=== PATIENT | male | born 1985 | race Hispanic/Latino ===

== ENCOUNTER 2024-02-27 18:20 | Inpatient (IN) | payer SELFPAY ==
[2024-02-27] VITALS (25 sets, daily range): BP systolic 87–116; BP diastolic 41–70; PULSE 104–132; RESP 11–24; TEMP 36.1–36.4; O2SAT 97–100
--- NOTE | ~2024-02-27 | XR_ITS ---
EXAM: XR hand RT min 3V DATE: 02/27/2024 21:05 HISTORY: right hand pain, fall . COMPARISON: None available. FINDINGS: Normal mineralization. Transverse extra-articular nondisplaced fracture of the proximal ri ght first metacarpal. Old second proximal phalange fracture, healed in mild deformity No lytic or efe stic lesion. Joint spaces are maintained. No erosion or periosteal change. Soft tissues within normal limits. IMPRESSION: Transverse intra-articular nondisplaced fracture of the proximal right first metacarpal. Reviewed, dictated and finalized at location K. IMPRESSION: Transverse intra-articular nondisplaced fracture of the proximal ri t first metacarpal.
--- NOTE | ~2024-02-27 | CT_ITS ---
EXAMINATION: CT facial & cervical spine wo DATE: 02/27/2024 20:53 INDICATION: head injury TECHNIQUE: Computed tomography (CT) of the maxillofacial region and cervical spine was performed with out intravenous contrast. Automated exposure control and iterative reconstruction technique were empl oyed. The dose-length product was 605.33 mGy-cm. COMPARISON: None FINDINGS: CERVICAL: Vertebral Body Alignment: Intact. Craniocervical and atlantoaxial alignment: No significant degenerative change. Alignment intact. Osseous structures/fracture: No evidence of a lytic or blastic process in the visualized spine. No e vidence of acute fracture. Cervical soft tissues: The paraspinal soft tissues planes are maintained. Degenerative changes: No significant degenerative changes. FACE: Soft Tissues: No significant superficial soft tissue swelling. Facial bones: No acute fracture. No lytic or blastic process. Eyes: The globes are intact. The soft tissue planes of the orbits are maintained. Paranasal Sinuses: Trace left mastoid fluid, the remaining aerated spaces are clear. Foreign Bodies: No radiopaque foreign bodies. Other Findings: None. IMPRESSION: No acute fracture or traumatic malalignment in the cervical spine. No acute facial bone fracture. Reviewed, dictated and finalized at location K. IMPRESSION: No acute fracture or traumatic malalignment in the cervical spine. No acute fac ial bone fracture.
--- NOTE | ~2024-02-27 | CT_ITS ---
EXAMINATION: CT brain wo con DATE: 02/27/2024 20:53 INDICATION: head injury . TECHNIQUE: Computed tomography (CT) of the head was performed without intravenous contrast. The mA wa s adjusted according to patient size. Iterative reconstruction technique was employed. The dose-lengt h product was 605.33 mGy-cm. COMPARISON: None. FINDINGS: No acute intracranial hemorrhage or extra-axial fluid collection. No hydrocephalus, mass, or herniation. No acute ischemic infarct. Unremarkable dural venous sinus attenuation. No acute osseous abnormality. The aerated spaces are clear. IMPRESSION: No acute intracranial process. Reviewed, dictated and finalized at location K.
--- NOTE | ~2024-02-27 | XR_ITS ---
EXAMINATION: XR chest 1V portable Exam Date/Time: 02/27/2024 19:03 CDT HISTORY: FEVER, LETHARGY, N/V/D Comparison: None. RESULT: Lines, tubes, and devices: None. Lungs and pleura: Clear. Cardiomediastinal silhouette: Unremarkable. Other: No acute osseous or upper abdominal finding. IMPRESSION: No acute cardiopulmonary process. Reviewed, dictated and finalized at location K.
--- NOTE | ~2024-02-27 | CT_ITS ---
EXAMINATION: CT abdomen pelvis w con DATE: 02/27/2024 21:03 INDICATION: abd pain, bloody diarrhea TECHNIQUE: Computed tomography (CT) of the abdomen and pelvis was performed with 100 mL Omnipaque-350 intravenous contrast. Automated exposure control and iterative reconstruction technique were employe d. The dose-length product was 1062.80 mGy-cm. COMPARISON: None. FINDINGS: Beam hardening present from arm down positioning. Lower thorax: Mild coronary artery calcification. Dependent atelectasis. Mild symmetric gynecomastia. Liver: Enlarged. Biliary/Gallbladder: Gallbladder is collapsed. No bile duct dilation. Pancreas: No mass or duct dilation. Spleen: Enlarged. Adrenals:No mass. Kidneys: No suspicious mass, obstructing stone, or hydronephrosis. GI tract: No small or large bowel dilation. Segmental wall thickening at the junction of the distal d escending colon and proximal sigmoid. Normal appendix. Diverticulosis without diverticulitis. Mesentery/Peritoneum: No ascites, mass, or free air. Enlarged jessica hepatic lymph node. Retroperitoneum: No mass. Atherosclerotic abdominal aortic and/or arterial calcifications. Pelvis: Bladder wall thickening in a partially distended urinary bladder. Normal prostate. Soft Tissues: Soft tissues and body wall unremarkable. Bones: No acute osseous finding. IMPRESSION: Hepatosplenomegaly. Portohepatic lymphadenopathy. Segmental distal descending/proximal sigmoid colon wall thickening may reflect a component of colitis . Bladder wall thickening from incomplete distention versus cystitis, correlate with urinalysis Reviewed, dictated and finalized at [facility] K. IMPRESSION: Hepatosplenomegaly. Portohepatic lymphadenopathy. Segmental distal descending/proximal sigmoid colon wall thickening may reflect a component of colitis. Bladder wall thickening from incomplete distention versus cystitis, correlate w ith urinalysis
--- NOTE | 2024-02-27 18:34 | ECG_ITS ---
SEE SCANNED COPY FOR CONFIRMED REPORT MTDD
[2024-02-27 18:46] LABS: Hematocrit 26.7 % (42.0-52.0); Hemoglobin 7.2 g/dL (14.0-18.0); Mean Corpuscular Volume 70.4 fl (80-100); Platelet Count Result 197 k/mm3 (150-375); Red Blood Count 3.79 M/mm3 (4.6-6.20); Red Cell Distribution Width 20.1 % (11.5-14.5); White Blood Count 33.3 K/mm3 (4.5-10.0)
[2024-02-27 18:55] LABS: INR 1.4; Prothrombin Time 17.5 Seconds (11.1-14.7)
[2024-02-27 18:56] LABS: Partial Thromboplastin Time 31.2 Seconds (22.3-36.8)
[2024-02-27 18:58] LABS: Alanine Aminotransferase 26 U/L (6-50); Alkaline Phosphatase 83 U/L (38-126); Anion Gap 13 mmol/L (4-12); Aspartate Amino Transferase 58 U/L (17-59); Bilirubin,Total 1.3 mg/dL (0.2-1.3); Blood Urea Nitrogen 39 mg/dL (9-20); Carbon Dioxide 23 mmol/L (22-30); Chloride 103 mmol/L (98-107); Estimated CRCL calculation 94 ml/min; Estimated Glomerular Filt Rate > 60; Glucose 200 mg/dL (65-110); Lipase 100 U/L (23-300); Potassium 3.8 mmol/L (3.4-5.0); Sodium 139 mmol/L (137-145)
[2024-02-27 19:16] LABS: Troponin I 0.045 ng/mL (0.000-0.034)
--- NOTE | 2024-02-27 19:26 | ED.NAVMDI ---
HPI - Nausea/Vomiting/Diarrhea General Chief complaint: Nausea/Vomiting/Diarrhea <LINDA Chua Last Filed: 02/28/24 03:26> Stated complaint: Nausea, vomiting <LINDA Chua Last Filed: 02/28/24 03:26> Time Seen by Provider: 02/27/24 19:12 <LINDA Chua Last Filed: 02/28/24 03:26> Source: patient and family <LINDA Chua Last Filed: 02/28/24 03:26> Mode of arrival: wheelchair <LINDA Chua Filed: 02/28/24 03:26> Limitations: no limitations <LINAD Chua Last Filed: 02/28/24 03:26> History of Present Illness HPI Narrative: This is a 38 year old male that presents to the ER for abdominal pain. Ongoing since yesterday. Reports associated vomiting and bloody diarrhea. Reports when he was coming here he stood up and got really dizzy and fell and hit his head. He did not lose consciousness. Reports injuries to his face. Denies vision changes, numbness or weakness. <LINDA Chua Last Filed: 02/28/24 03:26> Related Data Home medications: Home Medications Medication Instructions Recorded Confirmed No Home Medications 02/28/24 02/28/24 <LINDA Chua Last Filed: 02/28/24 03:26> Allergies/Adverse reactions: Allergies Allergy/AdvReac Type Severity Reaction Status Date / Time No Known Allergies Allergy Verified 02/27/24 18:22 <LINDA Chua Last Filed: 02/28/24 03:26> Review of Systems Review of Systems: CONSTITUTIONAL: Denies fever EYES: Denies visual changes CARDIOVASCULAR: Denies chest pain RESPIRATORY: Reports cough. Denies dyspnea. GASTROINTESTINAL: Reports abdominal pain, nausea, vomiting, and diarrhea. MUSCULOSKELETAL: Reports myalgia. NEUROLOGIC: Reports headache. Denies numbness, or weakness. <LINDA Chua Last Filed: 02/28/24 03:26> All systems reviewed & are unremarkable except as noted in HPI and below <Gi Ramires PA-C - Last Filed: 02/28/24 03:26> FORMERLY [facility] Past Medical History Medical History: Medical History (Updated 02/28/24 @ 16:20 by Cheo Sebastian APRN) Acute blood loss anemia Hematemesis Melena No active medical problems Syncope <Gi Ramires PA-C - Last Filed: 02/28/24 03:26> Social History Social History: Social History (Updated 02/27/24 @ 19:31 by Gi Ramires PA-C) Smoking packs per day: 0.5 Smoking cigarettes per day: 10.0 Years smoked: 25 Smoking pack-years: 12.50 Smoking status: Current every day smoker Tobacco type: cigarettes Alcohol intake: current Drinks per week: 42 Substance use: never Do You Feel Safe in your Home?: Yes Lack of Transportation: No Lack of Food: Never True Current Housing: I Have Housing Concerned About Future Housing: No Difficulty Paying Gas/Electric Bills: No Difficulty Paying for Meds: No Currently Unemployed: No Education: Associate Degree Difficulty w/ Childcare or Family Care: No Spiritual care concerns: No <Gi Ramires PA-C - Last Filed: 02/28/24 03:26> Exam Narrative: GENERAL: Ill-appearing, well-nourished, and in no acute distress. HEAD: Normocephalic. Superficial lacerations of the inner lower lip EYES: PERRLA and EOMI. ENT: Nares clear, no rhinorrhea or epistaxis. Mucous membranes moist. Oropharynx without tonsillar hypertrophy exudate or other lesions. Bilateral TMs pearly cardenas non-bulging NECK: Supple. No adenopathy or masses. CHEST: Clear to auscultation. No respiratory distress. No wheezes rales or rhonchi HEART: Regular rate and rhythm. No murmur heard. Normal peripheral pulses. ABDOMEN: Soft, nondistended, normal active bowel sounds. EXTREMITIES: Normal range of motion. No edema. SKIN: Warm, dry, no rash. NEURO: No focal deficits. Alert and oriented x3. CN II-XII grossly intact PSYCH: Normal mood and affect RECTAL: Hemoccult-positive <Gi Ramires PA-C - Last Filed: 02/28/24 03:26>
[2024-02-27 19:35] LABS: Anisocytosis 1+; Band Neutrophils Percent 1 % (0-6); Hypochromasia 3+; Lymphocytes Absolute Manual 6.32 K/mm3 (1.1-4.5); Monocytes Absolute Manual 1.33 K/mm3 (0.1-0.90); Monocytes Percent Manual 4 % (3-9); Neutrophils Absolute Manual 25.64 K/mm3 (1.3-6.7); Neutrophils Percent Manual 76 % (46-73); Platelet Estimate Adequate (Adequate); Schistocytes Rare; Total Cells Counted 100
[2024-02-27] MEDS: ONDANSETRON INJ 4 MG/2 ML VIAL IV PUSH (19:35)
[2024-02-27] MEDS: PANTOPRAZOLE SODIUM IV 40 MG VIAL IV PUSH (19:35)
[2024-02-27] MEDS: SODIUM CHLORIDE 0.9% IV 1,000 ML 999 ML IV CONT ×2 (19:35→20:04)
[2024-02-27 19:36] LABS: CRP 1.5 mg/dL (<1.0)
[2024-02-27] MEDS: TETANUS,DIPHTHERIA,AC PERTUSSIS ADULT (0.5 ML) BOOSTRIX IM (19:40)
[2024-02-27] MEDS: IBUPROFEN IV 400 MG in SODIUM CHLORIDE 0.9% IV 100 ML 208 MG IVPB (19:42)
[2024-02-27 19:45] LABS: Ethanol < 10 mg/dL (<10)
[2024-02-27 20:12] LABS: Influenza A QL RT-PCR Negative (Negative); Influenza B QL RT-PCR Negative (Negative); RSV RNA, RT-PCR Negative (Negative); SARS-CoV-2 RNA PCR Negative (Negative)
[2024-02-27 20:14] LABS: Hemoglobin A1C 5.2 % (<5.7)
[2024-02-27 22:03] LABS: Hematocrit 21.2 % (42.0-52.0)
[2024-02-27 22:27] LABS: Troponin I 0.071 ng/mL (0.000-0.034)
[2024-02-27 22:33] LABS: Reflex Lactic Acid Yes or No Add Lactic
[2024-02-27] MEDS: PIPERACILLN/TAZ 3.375GM/NS50ML 3.375 GM/50 ML BAG IVPB (22:49)
[2024-02-27 23:07] LABS: Lactic Acid 3.2 mmol/L (0.7-2.0)
--- NOTE | 2024-02-27 23:16 | ECG_ITS ---
SEE SCANNED COPY FOR CONFIRMED REPORT MTDD
[2024-02-27] MEDS: TUBING, BLOOD PLUM PUMP TUBING 1 EACH XX (23:26)
[2024-02-27] MEDS: SODIUM CHLORIDE 0.9% IV 250 ML 30 ML IV CONT (23:26)
[2024-02-28] VITALS (30 sets, daily range): BP systolic 87–127; BP diastolic 46–75; PULSE 99–129; RESP 14–31; TEMP 35.6–36.9; O2SAT 97–100; BMI 32.3
[2024-02-28 00:02] LABS: Appearance Urine Cloudy (Clear); Bacteria Urine None Seen /hpf; Bilirubin Urine Negative (Negative); Blood Urine Negative (Negative); Color Urine Yellow (Yellow); Glucose Urine UA Negative (Negative); Hyaline Casts Urine Present /lpf; Ketones Urine Negative (Negative); Leukocyte Esterase Ur Negative LEU/UL (Negative); Need Manual Microscopic Reviewed; Nitrate Urine Negative (Negative); Non Pathogenic Casts >20; Protein Urine Trace mg/dL (Negative); RBC Urine 0-2 /hpf (0-2); Squamous Epithelial Cell Urine None Seen /hpf (Few); Urobilinogen Urine 0.2 mg/dL (<2.0); WBC Urine 0-5 /hpf (0-3); pH Urine 5.5 (5.0-9.0)
[2024-02-28 00:04] LABS: Add Urine Microscopic? YES
[2024-02-28] MEDS: SODIUM CHLORIDE 0.9% IV 1,000 ML 999 ML IV CONT (00:50)
--- NOTE | 2024-02-28 01:09 | ECG_ITS ---
SEE SCANNED COPY FOR CONFIRMED REPORT MTDD
[2024-02-28 02:00] LABS: Troponin I 0.089 ng/mL (0.000-0.034)
--- NOTE | 2024-02-28 02:41 | PM.IMHP ---
H&P: HPI History of Present Illness Date/Time: 02/28/24 02:41 Chief Complaint: HEMATEMESIS Narrative: THIS IS A 38-YEAR-OLD MALE WITH NO SIGNIFICANT PAST MEDICAL HISTORY PRESENTS TO THE EMERGENCY ROOM AFTER HAVING SEVERAL EPISODES OF HEMATEMESIS AND MELENA FEELING LIGHTHEADED, PATIENT DRINKS 6 PACK OF BEER DAILY. HAS BEEN HIS USUAL STATE OF HEALTH UP UNTIL THIS POINT. IN EMERGENCY ROOM HE WAS FOUND TO HAVE A HEMOGLOBIN OF 6. EXAMINATION: CT facial & cervical spine wo DATE: 02/27/2024 20:53 INDICATION: head injury TECHNIQUE: Computed tomography (CT) of the maxillofacial region and cervical spine was performed without intravenous contrast. Automated exposure control and iterative reconstruction technique were employed. The dose-length product was 605.33 mGy-cm. COMPARISON: None FINDINGS: CERVICAL: Vertebral Body Alignment: Intact. Craniocervical and atlantoaxial alignment: No significant degenerative change. Alignment intact. Osseous structures/fracture: No evidence of a lytic or blastic process in the visualized spine.? No evidence of acute fracture. Cervical soft tissues: The paraspinal soft tissues planes are maintained. Degenerative changes: No significant degenerative changes. FACE: Soft Tissues:? No significant superficial soft tissue swelling. Facial bones:? No acute fracture. No lytic or blastic process. Eyes:? The globes are intact.? The soft tissue planes of the orbits are maintained. Paranasal Sinuses:? Trace left mastoid fluid, the remaining aerated spaces are clear. Foreign Bodies:? No radiopaque foreign bodies. Other Findings: None. IMPRESSION:? No acute fracture or traumatic malalignment in the cervical spine. No acute facial bone fracture.? EXAMINATION: CT brain wo con DATE: 02/27/2024 20:53 INDICATION: head injury . TECHNIQUE: Computed tomography (CT) of the head was performed without intravenous contrast. The mA was adjusted according to patient size. Iterative reconstruction technique was employed. The dose-length product was 605.33 mGy-cm. COMPARISON: None. FINDINGS: No acute intracranial hemorrhage or extra-axial fluid collection. No hydrocephalus, mass, or herniation. No acute ischemic infarct. Unremarkable dural venous sinus attenuation. No acute osseous abnormality. The? aerated spaces are clear. IMPRESSION:? No acute intracranial process. EXAMINATION: CT abdomen pelvis w con DATE: 02/27/2024 21:03 INDICATION: abd pain, bloody diarrhea TECHNIQUE: Computed tomography (CT) of the abdomen and pelvis was performed with 100 mL Omnipaque-350 intravenous contrast. Automated exposure control and iterative reconstruction technique were employed. The dose-length product was 1062.80 mGy-cm. COMPARISON: None. FINDINGS: Beam hardening present from arm down positioning. Lower thorax: Mild coronary artery calcification. Dependent atelectasis. Mild symmetric gynecomastia. Liver: Enlarged.? Biliary/Gallbladder: Gallbladder is collapsed. No bile duct dilation. Pancreas: No mass or duct dilation. Spleen: Enlarged. Adrenals:No mass. Kidneys: No suspicious mass, obstructing stone, or hydronephrosis. GI tract: No small or large bowel dilation. Segmental wall thickening at the junction of the distal descending colon and proximal sigmoid. Normal appendix. Diverticulosis without diverticulitis. Mesentery/Peritoneum: No ascites, mass, or free air. Enlarged jessica hepatic lymph node. Retroperitoneum: No mass. Atherosclerotic abdominal aortic and/or arterial calcifications. Pelvis: Bladder wall thickening in a partially distended urinary bladder. Normal prostate. Soft Tissues: Soft tissues and body wall unremarkable. Bones:? No acute osseous finding. IMPRESSION: Hepatosplenomegaly. Portohepatic lymphadenopathy. Segmental distal descending/proximal sigmoid colon wall thickening may reflect a component of colitis. Bladder wall thickening from incomplete distention versus cys
[2024-02-28] MEDS: OCTREOTIDE ACETATE 50 MCG/ML VIAL IV PUSH (03:14)
[2024-02-28] MEDS: SODIUM CHLORIDE 0.9% IV 1,000 ML 125 ML IV CONT (03:17)
[2024-02-28 03:25] LABS: Hematocrit 21.7 % (42.0-52.0)
[2024-02-28 03:27] LABS: Hemoglobin 6.5 g/dL (14.0-18.0)
[2024-02-28] MEDS: TUBING, BLOOD SET 1 EACH XX (04:22)
[2024-02-28] MEDS: SODIUM CHLORIDE 0.9% IV 250 ML 30 ML IV CONT ×2 (04:22→08:43)
--- NOTE | 2024-02-28 05:35 | ADMGEN ---
This patient, Jun De La Rosa, was admitted to IMU Room 204-01. Patient/family oriented to hospital policies and general routines including ID bracelet, bed and alarms, visiting hours, pain management, procedures, bathroom and other care routines, personal items, smoking policy, room service/diet, and visiting hours. Information on how to activate the Rapid Response Team has been discussed. Patient/Family are encouraged to report perceived risks to care and to ask questions if they do not understand what they are told or what they should do.
[2024-02-28 06:02] LABS: Glucose Point of Care 163 mg/dl (65-105)
[2024-02-28] MEDS: DEXTROSE 5%/0.45% SOD CHL 1,000 ML 125 ML IV CONT (06:17)
[2024-02-28] MEDS: chlordiazePOXIDE (*CRX) 25 MG CAPSULE 50 MG PO (06:19)
[2024-02-28] MEDS: PIPERACILLN/TAZ 3.375GM/NS50ML 3.375 GM/50 ML BAG IVPB ×2 (06:19→15:11)
[2024-02-28 07:00] LABS: Hematocrit 23.3 % (42.0-52.0); Hemoglobin 7.2 g/dL (14.0-18.0)
[2024-02-28] MEDS: TUBING, BLOOD PLUM PUMP TUBING 1 EACH XX (08:38)
[2024-02-28] MEDS: PANTOPRAZOLE SODIUM IV 80 MG in SODIUM CHLORIDE 0.9% IV 500 ML 50 MG IV CONT (08:40)
[2024-02-28] MEDS: PANTOPRAZOLE SODIUM IV 40 MG VIAL IV PUSH (08:42)
[2024-02-28] MEDS: LACTATED RINGERS 1,000 ML 150 ML IV CONT (10:41)
--- NOTE | 2024-02-28 11:02 | WPDANESEPPF ---
Anes - Initial Pre Proc Eval Procedure: Operation Date: 02/28/24 15:00 Proposed Procedures p Esophagogastroduodenoscopy - Gregory Caldwell MD Date/Time: 02/28/24 11:02 Surgeon: Cb Kwon MD Pre Op Diagnosis: Sepsis,Colitis,GI Bleed Patient Data Age: 38 Gender: M Height: 1.78 m Weight: 102.1 kg Last Vital Signs Temp 97 F L 02/28/24 10:37 Pulse 119 H 02/28/24 10:37 Resp 18 02/28/24 10:37 BP 103/60 02/28/24 10:37 Pulse Ox 100 02/28/24 10:37 O2 Del Method Room Air 02/28/24 10:37 Allergies Allergy/AdvReac Type Severity Reaction Status Date / Time No Known Allergies Allergy Verified 02/27/24 18:22 Home Medications Medication Instructions Recorded Confirmed Type No Home Medications 02/28/24 02/28/24 History Laboratory Tests 02/27/24 02/27/24 02/27/24 18:36 19:27 21:53 WBC 33.3 H K/mm3 (4.5-10.0) RBC 3.79 L M/mm3 (4.6-6.20) Hgb 7.2 L g/dL 6.0 L* g/dL (14.0-18.0) (14.0-18.0) Hct 26.7 L % 21.2 L % (42.0-52.0) (42.0-52.0) MCV 70.4 L fl (80-100) MCH 19.0 L pg (26-34) MCHC 27.0 L g/dl (32-36) RDW 20.1 H % (11.5-14.5) Plt Count 197 k/mm3 (150-375) MPV TNP Immature Gran % (Auto) Not Reportable Neut % (Auto) Not Reportable Lymph % (Auto) Not Reportable [place] % (Auto) Not Reportable Eos % (Auto) Not Reportable Baso % (Auto) Not Reportable Lymph # (Auto) Not Reportable [place] # (Auto) Not Reportable Eos # (Auto) Not Reportable Baso # (Auto) Not Reportable Abs Immat Gran (auto) Not Reportable Absolute Neuts (auto) Not Reportable Absolute Nucleated RBC Not Reportable Total Counted 100 Neutrophils % (Manual) 76 H % (46-73) Band Neutrophils % 1 % (0-6) Lymphocytes % (Manual) 19.0 % (18-44) Monocytes % (Manual) 4 % (3-9) Nucleated RBC % Not Reportable Abs Neuts (Manual) 25.64 H K/mm3 (1.3-6.7) Abs Lymphs (Manual) 6.32 H K/mm3 (1.1-4.5) Abs Monocytes (Manual) 1.33 H K/mm3 (0.1-0.90) Platelet Estimate Adequate (Adequate) % Immature Plt Fraction 16.0 H % (0.9-11.2) Hypochromasia 3+ Anisocytosis 1+ Schistocytes Rare PT 17.5 H Seconds (11.1-14.7) INR 1.4 APTT 31.2 Seconds (22.3-36.8) Sodium 139 mmol/L (137-145) Potassium 3.8 mmol/L (3.4-5.0) Chloride 103 mmol/L (98-107) Carbon Dioxide 23 mmol/L (22-30) Anion Gap 13 H mmol/L (4-12) BUN 39 H mg/dL (9-20) Creatinine 1.10 mg/dL (0.7-1.3) Estim Creat Clear Calc 94 ml/min Estimated GFR > 60 (59 - ) Glucose 200 H mg/dL (65-110) POC Capillary Glucose Hemoglobin A1c 5.2 % (<5.7) Lactic Acid 4.0 H mmol/L (0.7-2.0) Calcium 9.0 mg/dL (8.4-10.2) Total Bilirubin 1.3 mg/dL (0.2-1.3) AST 58 U/L (17-59) ALT 26 U/L (6-50) Alkaline Phosphatase 83 U/L (38-126) Troponin I 0.045 H* ng/mL 0.071 H* D ng/mL (0.000-0.034) (0.000-0.034) C-Reactive Protein 1.5 H mg/dL (<1.0) Total Protein 7.0 g/dL (6.3-8.2) Albumin 4.0 g/dL (3.5-5.1) Lipase 100 U/L (23-300) Urine Color Urine Appearance Urine pH Ur Specific [place] Urine Protein Urine Glucose (UA) Urine Ketones Ur Blood (Man) Urine Nitrate Urine Bilirubin Urine Urobilinogen Add Ur Microanalysis Leukocyte Esterase R
--- NOTE | 2024-02-28 11:26 | WPDGICN ---
Assessment and Plan Assessment and plan (1) Acute GI bleeding: Code(s): K92.2 - Gastrointestinal hemorrhage, unspecified Status: Acute Assessment and Plan: will proceed with urgent EGD on iv protonix/octreotide and antibiotics assess if varices, ulcer, etc more recommendations after egd (2) Melena: Code(s): K92.1 - Melena Status: Acute Assessment and Plan: received blood transfusion (3) Hematemesis: Code(s): K92.0 - Hematemesis Status: Acute (4) Syncope: Code(s): R55 - Syncope and collapse Status: Acute Assessment and Plan: from acute gib (5) Alcohol dependence: Code(s): F10.20 - Alcohol dependence, uncomplicated Status: Acute Assessment and Plan: [facility] protocol thiamine, librium (6) Sepsis: Qualifiers: Sepsis acute organ dysfunction status: without acute organ dysfunction Sepsis type: sepsis due to unspecified organism Qualified Code(s): A41.9 - Sepsis, unspecified organism Code(s): A41.9 - Sepsis, unspecified organism Status: Acute Assessment and Plan: on abx (7) Acute blood loss anemia: Code(s): D62 - Acute posthemorrhagic anemia Status: Acute Assessment and Plan: s/p blood transfusion keep hgb>7 (8) Fracture of first metacarpal bone of right hand: Qualifiers: Encounter type: initial encounter Fracture alignment: nondisplaced Fracture morphology: other fracture Fracture type: closed Metacarpal location: base Qualified Code(s): S62.234A - Other nondisplaced fracture of base of first metacarpal bone, right hand, initial encounter for closed fracture Code(s): S62.201A - Unspecified fracture of first metacarpal bone, right hand, initial encounter for closed fracture Status: Acute GI Consult Note Consult date/time: 02/28/24 11:26 Reason for consult: hematemesis, melena, syncope, alcohol use HPI: Jun De La Rosa is a 38 year old male with not known chronic medical problems but has not seen a doctor for a while or taking any medications, he normally drinks 6 pack beer daily. He is here with new onset of coffee ground emesis, also abdominal discomfort then noted dark tarry stools. Then was lightheaded and passed out, he fell to floor and had facial trauma, also injured his right hand. He had anemia with hgb 7, wbc 33k, lactic acid 4, platelets 190, bun 39, creat 1, inr 1.4. He was given 4 units prbc, started on iv protonix and iv octreotide drip, also zosyn. He never had scopes, denies GI surgeries. XR or right hand showed transverse intra-articular nondisplaced fracture of the proximal right first metacarpal. CT scan a/p reviewed, Hepatosplenomegaly. Portohepatic lymphadenopathy. Segmental distal descending/proximal sigmoid colon wall thickening may reflect a component of colitis. Review of Systems Constitutional: Constitutional: Reports weakness Eyes: Eyes: Denies blurry vision ENT: Reports Normal hearing present Cardiovascular: Cardiovascular: Denies chest pain Respiratory: Respiratory: Denies cough Gastrointestinal: Gastrointestinal: Reports abdominal pain Genitourinary: Genitourinary: Denies hematuria Musculoskeletal: Comments: right hand pain Integumentary/Breasts: Skin/Breast: Denies rash Neurologic: Denies confusion Psychiatric: Psychiatric: Denies behavioral changes [facility] Past Medical History Medical History (Updated 02/28/24 @ 12:15 by Gregory Caldwell MD) Acute blood loss anemia Hematemesis Melena No active medical problems Syncope Social History Social History (Updated 02/27/24 @ 19:31 by Gi Ramires PA-C) Smoking packs per day: 0.5 Smoking cigarettes per day: 10.0 Years smoked: 25 Smoking pack-years: 12.50 Smoking status: Current every day smoker Tobacco type: cigarettes Alcohol intake: current Drinks per week: 42 Substance use: never Do You Feel Saf
[2024-02-28 14:52] LABS: Hematocrit 22.9 % (42.0-52.0)
[2024-02-28 14:55] LABS: Hemoglobin 7.1 g/dL (14.0-18.0)
--- NOTE | 2024-02-28 15:44 | PM.TDS ---
Transfer Discharge Sum: Prov Provider Date of admission: 02/28/24 11:48 Primary care physician: [employer] [facility]ICIAN Admitting clinician: Cb Kwon MD Consults: 02/27/24 Consult to Physician Routine Comment: Consulting Provider: Gregory Caldwell Reason for consultation: GI bleed Has provider been notified: Yes Attending physician on discharge: Jorge Roland Discharging clinician: Cheo Sebastian Anticipated date of transfer: 02/28/24 Receiving physician/facility: [facility], ICU DS: Admitting Diagnosis Discharge Date 02/28/2024 Admitting Diagnosis Acute GI bleed, anemia, fracture of 1st metacarpal bone of right hand, colitis, alcohol dependence DS: Discharge Diagnosis Discharge Diagnosis (1) Acute blood loss anemia: Code(s): D62 - Acute posthemorrhagic anemia Status: Acute (2) Gastric ulcer: Code(s): K25.9 - Gastric ulcer, unspecified as acute or chronic, without hemorrhage or perforation Status: Acute (3) Syncope: Code(s): R55 - Syncope and collapse Status: Acute (4) Hematemesis: Code(s): K92.0 - Hematemesis Status: Acute (5) Melena: Code(s): K92.1 - Melena Status: Acute (6) Alcohol dependence: Code(s): F10.20 - Alcohol dependence, uncomplicated Status: Acute (7) Colitis: Code(s): K52.9 - Noninfective gastroenteritis and colitis, unspecified Status: Acute (8) Acute GI bleeding: Code(s): K92.2 - Gastrointestinal hemorrhage, unspecified Status: Acute (9) Fracture of first metacarpal bone of right hand: Qualifiers: Encounter type: initial encounter Fracture alignment: nondisplaced Fracture morphology: other fracture Fracture type: closed Metacarpal location: base Qualified Code(s): S62.234A - Other nondisplaced fracture of base of first metacarpal bone, right hand, initial encounter for closed fracture Code(s): S62.201A - Unspecified fracture of first metacarpal bone, right hand, initial encounter for closed fracture Status: Acute (10) Elevated lactic acid level: Code(s): R79.89 - Other specified abnormal findings of blood chemistry Status: Acute Transfer Discharge Sum: Med Medications Active and Home Medications: Home Medications No Home Medications 02/28/24 [History Confirmed 02/28/24] Active Medications Chlordiazepoxide HCl (Chlordiazepoxide (*Crx) 25 Mg Capsule) [address] [facility] Last Admin: 02/28/24 15:13 Dose: Not Given Octreotide Acetate 500 mcg/ (Dextrose) 100 mls @ 10 mls/hr IV CONT .Q10H [facility] Last Admin: 02/28/24 15:12 Dose: 50 mcg/hr, 10 mls/hr Dextrose/Sodium Chloride (Dextrose 5% Sodium Chloride 0.45%) 1,000 mls @ 125 mls/hr IV CONT .Q8H [facility] Last Admin: 02/28/24 06:17 Dose: 125 mls/hr Piperacillin/Tazobactam/Dextrose (Zosyn 3.375 Gm/Ns 50 Ml) 3.375 gm in 50 mls @ 100 mls/hr IVPB Q6HR [facility] Last Admin: 02/28/24 15:11 Dose: 100 mls/hr Pantoprazole Sodium 80 mg/ (Sodium Chloride) 500 mls @ 50 mls/hr IV CONT .Q10H [facility] Last Admin: 02/28/24 08:40 Dose: 50 mls/hr Sodium Chloride (Normal Saline Iv) 250 mls @ 30 mls/hr IV CONT .Q8H20M STA Stop: 02/28/24 15:51 Last Infusion: 02/28/24 12:37 Dose: Infused Lorazepam (Lorazepam Inj (*Crx) 2 Mg/Ml Vial) 2 mg IV PUSH Q4H PRN PRN Reason: CIWA 8-15 Ondansetron HCl (Ondansetron Inj 4 Mg/2 Ml Vial) 4 mg IV PUSH Q6H PRN PRN Reason: Nausea And Vomiting Thiamine HCl (Thiamine Hcl 200 Mg/2 Ml Vial) [address] [facility] Transfer Discharge Sum: Hosp Hospital Course Hospital course: Jun De La Rosa is a 38 year old male only past history is heavy alcohol use. Yesterday he did not feel well when he got up, lightheaded and dizzy with ambulation. He vomited and it had significant amount of blood. Came to the emergency department found to have low hemoglobin at 7.2 but also signs of dehydration. He was fluid re
--- NOTE | 2024-02-29 13:12 | WPDANESPN ---
Anes - Prog Note Post-Op Date/Time: 02/29/24 13:12 Vital Signs: Last Vital Signs Temp 36.9 C 02/28/24 15:50 Pulse 99 02/28/24 16:00 Resp 18 02/28/24 15:50 BP 115/57 L 02/28/24 15:50 Pulse Ox 100 02/28/24 15:50 O2 Del Method Room Air 02/28/24 16:00 Pain Score (VAS): 0 Laboratory Tests 02/28/24 14:38 02/27/24 18:36 02/28/24 14:38 Hgb 7.1 L Hct 22.9 L Microbiology 02/27/24 19:46 Blood Blood Culture - Preliminary 02/27/24 20:11 Blood Blood Culture - Preliminary Patient Feedback: Patient satisfied with anesthetic care.
== END 2024-02-28 17:04 | disposition short-term general hospital (02) | DRG 241 ==
LOC: ANHED 02-28 03:12 → ANHIMU 02-28 05:05
PROVIDERS: Internal Medicine Gastroenterology; Preventive Medicine Aerospace Medicine; Admitting Provider Internal Medicine; Emergency Provider Physician Assistant; Visit Provider Nurse Practitioner
PROC: 0DJ08ZZ Inspection of Upper Intestinal Tract, Via Natural or Artificial Opening Endoscopic (ICD-10-PCS; CPT 43235; principal; 2024-02-28 15:00)
DX: K52.9 Noninfective gastroenteritis and colitis, unspecified; A41.9 Sepsis, unspecified organism; K25.4 Chronic or unspecified gastric ulcer with hemorrhage; D62 Acute posthemorrhagic anemia; S62.234A Other nondisplaced fracture of base of first metacarpal bone, right hand, initial encounter for closed fracture; S01.511A Laceration without foreign body of lip, initial encounter; W19.XXXA Unspecified fall, initial encounter; F17.210 Nicotine dependence, cigarettes, uncomplicated; F10.20 Alcohol dependence, uncomplicated; Z20.822 Contact with and (suspected) exposure to COVID-19
CPT/HCPCS: 36415; 36430; 70450; 70486; 71045; 72125; 73130; 74177; 80053; 80307; 81001; 82948; 83036; 83605; 83690; 84484; 85014; 85018; 85025; 85055; 85610; 85730; 86140; 86850; 86900; 86901; 86923; 87040; 87637; 88305; 88342; 90471; 90715; 93005; 96361; 96365; 96366; 96367; 96375; 99285; A9270; C9113; G0378; J1741; J2354; J2371; J2405; J2543; J2704; J7030; J7040; J7050; J7120; P9016; Q9967

== ENCOUNTER 2025-04-22 19:45 | Inpatient (IN) | payer SELFPAY ==
--- NOTE | ~2025-04-22 | CT_ITS ---
CLINICAL INDICATION: Jaundice COMPARISON: 02/27/2024. TECHNIQUE: Multiple contiguous axial images of the abdomen and pelvis were performed following the ad ministration of with 100 mL Omnipaque-350 intravenous contrast The dose-length product (DLP) was 1658.37 mGy-cm. Automated exposure control and iterative reconstruction technique were employed. FINDINGS/OBSERVATIONS: Visualized lower thorax: Bibasilar scarring. Right-sided pleural effusion with adjacent compressive atelectasis. The heart is of normal size, without pericardial effusion. Small hiatal hernia is present. Liver: The liver demonstrates homogeneous enhancement and is enlarged and nodular measuring 20 cm in longitu dinal dimension. Gallbladder and biliary system: The gallbladder is decompressed, limiting its evaluation. Pancreas: The pancreas enhances homogeneously without ductal dilatation. Spleen: The spleen enhances homogeneously and is markedly enlarged measuring 18 cm in longitudinal dimension. Kidneys: The bilateral kidneys enhance symmetrically without hydronephrosis or renal calculi. Adrenal glands: Unremarkable. Gastrointestinal tract: Fecal stasis within the colon. Simple fluid within the abdomen and pelvis. Appendix: The air-filled appendix is of normal caliber (axial series, images 137 through 164) Vasculature: Significant gastric varices (including cardiac and fundal varices) lower esophageal varices and splen orenal varices. Recanalization of the umbilical vein is also noted. The portal vein opacifies with contrast without cavernous transformation. Lymph nodes: Multiple non-pathologically enlarged or morphologically suspicious lymph nodes within the retroperito neum and at the root of the mesentery. Pelvic structures: The bladder is only minimally distended, and otherwise unremarkable. The prostate gland is not enlarged. Body wall and musculoskeletal: No significant degenerative disease within the lower thoracic or lumbosacral spine. IMPRESSION: Findings consistent with portal hypertension, as detailed above. Reviewed, dictated and finalized at location A.
--- NOTE | ~2025-04-22 | XR_ITS ---
CHEST RADIOGRAPH CLINICAL HISTORY: SOB . COMPARISON: 02/27/2024 TECHNIQUE: Single portable view of the chest. FINDINGS The cardiomediastinal silhouette is unremarkable. Bibasilar atelectasis is detected with low lung volumes and pulmonary vascular crowding. The lungs are otherwise clear. IMPRESSION: Low lung volumes with bibasilar atelectasis. Reviewed, dictated and finalized at location A.
--- NOTE | ~2025-04-22 | US_ITS ---
EXAMINATION: US paracentesis abd w/image DATE: 04/29/2025 14:59 INDICATION: Cirrhosis with ascites TECHNIQUE: The procedure and its risks and benefits were discussed with the patient. Potential risks discussed included bleeding and infection. The skin was prepped and draped in sterile fashion. 1% lid ocaine was used for local anesthesia. Under ultrasound guidance, a 5 Fr catheter with trochar was adv anced into the ascites in the right lower quadrant. Fluid was aspirated into vacuum bottles. The cath eter was removed, and a dressing was applied. There were no immediate complications. FINDINGS: Ultrasound images demonstrate ascites and the catheter within the fluid. IMPRESSION: 1. Successful ultrasound-guided paracentesis yielding 2100 mL of clear yellow fluid. Reviewed, dictated and finalized at location A.
[2025-04-22 19:50] VITALS: BP 145/93; PULSE 100; RESP 27; TEMP 37; O2SAT 100
--- OUTSIDE RECORDS SUMMARY | 2025-04-22 19:50 | XMS_ITS | Clinical Summary ---
Author Organization [facility] Address [address] [place] [address] Phone Care Team Providers Care Stave Cutter Name Role Phone Unavailable Primary Care Provider Unavailabl e Allergies No known active allergies Medications pantoprazole (PROTONIX) 40 mg Tablet, Delayed Release (E.C.) Take 1 Tablet (40 mg) by mouth 2 times daily. 120 Tablet 03/03/2024 Active thiamine mononitrate (VITAMIN B-1) 100 mg tablet Take 1 Tablet (100 mg) by mouth daily. 90 Tablet 03/03/2024 Active multivitamin tx with iron and folic acid tablet 18-400 mg-mcg Tablet Take 1 Tablet by mouth daily. 90 Tablet 03/04/2024 Active Active Problems Problem Noted Date Diagnosed Date Abnormal CT of the head 03/01/2024 Acute upper GI bleeding 02/29/2024 Acute blood loss anemia 02/29/2024 Coagulopathy 02/29/2024 Gastric ulcer with hemorrhage 02/29/2024 Alcohol use disorder, mild, abuse 02/29/2024 Encounters Date Type Department Care Team Description 02/25/2025 External Device Data [facility] Provider, Abstract 01/22/2025 External Device Data [facility] Provider, Abstract 01/22/2025 External Device Data [facility] Provider, Abstract from Last 3 Months Social History Tobacco Use Types Packs/Day Years Used Date Smoking Tobacco: Never Assessed Feeling Safe Answer Date Recorded Are you in a relationship wi th someone who hurts you emotionally and/or physically? No 02/29/2024 Sex and Gender Information Value Date Recorded Sex Assigned at Not on file Legal Sex Male 9:19 AM CDT Gender Identity Not on file Sexual Orientation Not on file Last Filed Vital Signs Vital Sign Reading Time Taken Comments Blood Pressure 122/76 03/03/2024 4:57 AM CDT Pulse 77 03/03/2024 4:57 AM CDT Temperature 37.1 C (98.8 F) 03/03/2024 4:57 AM CDT Respiratory Rate 19 03/03/2024 4:57 AM CDT Oxygen Saturation 100% 03/03/2024 4:57 AM CDT Inhaled Oxygen Concentration - - Weight 102.2 kg (225 lb 3.2 oz) 02/28/2024 6:10 PM CDT Height 177.8 cm (5' 10) 02/28/2024 6:10 PM CDT Body Mass Index 32.31 02/28/2024 6:10 PM CDT Plan of Treatment Health Maintenance Due Date Last Done Comments DTAP/TDAP/TD VACCINES (1 - Tdap) 2004 HEPATITIS B VACCINES (1 of 3 - 19+ 3-dose series) 2004 INFLUENZA VACCINE (#1) 2024 HPV VACCINES Aged Out No longer eligi ble based on patient's age to complete this topic Insurance RX [employer] (INTERNAL) [facility] Advance Directives For more information, please contact: [phone] * Full Code (Latest Code Status on File) Date Activated Date Inactivated Comments 02/28/2024 6:12 PM 03/03/2024 1:58 PM
--- NOTE | 2025-04-22 19:57 | ED_ITS ---
HPI - Abdominal Pain General Chief Complaint: Abdominal Pain <Amos Turner MD - Last Filed: 04/24/25 00:31> Stated Complaint: sent from UC, Jaundice, abd pain, Edema <Amos Turner MD - Last Filed: 04/24/25 00:31> Time Seen by Provider: 04/22/25 19:49 <Amos Turner MD - Last Filed: 04/24/25 00:31> History of Present Illness HPI narrative: 39-year-old male with a past medical history including alcohol use disorder, bleeding gastric ulcers requiring endoscopy. Patient states he drinks beer and Tequila on a daily basis since stopped 2 weeks ago after he noticed that he was turning yellow. He states his eyes started turning yellow when he began becoming more distended and now having body discoloration pitting edema from his ankles to his scrotum. Does not have any history of known cirrhosis to his knowledge. He had an endoscopy at the end of February for bleeding gastric ulcer that stopped on its own. He was transferred to [facility] ICU at that time as GI services were not available at this facility but they did not intervene or do any other procedures per his recollection of the events. He was discharged home afterwards. Patient denies any fever chills but does have abdominal pain. He was nauseous and vomited last week but no longer having any GI bleeding or vomiting. He is not having any dark or melanotic stools endorses jt-colored discoloration to his stools now. Denies any urinary issues. States he has never had a history of yellow skin or swelling like this in the past. < Amos Turner MD - Last Filed: 04/24/25 00:31> Related Data Home Medications: Home Medications ?Medication ?Instructions ?Recorded ?Confirmed ?Last Taken ?Type No Home Medications 02/28/24 02/28/24 Unknown History <Amos Turner MD - Last Filed: 04/24/25 00:31> Allergies/Adverse Reactions: Allergies Allergy/AdvReac Type Severity Reaction Status Date / Time No Known Allergies Allergy Verified 02/27/24 18:22 <Amos Turner MD - Last Filed: 06/19/25 00:31> Review of Systems 2 Review of Systems: As reviewed above in HPI <Amos Turner MD - Last Filed: 04/24/25 00:31> [facility] Past Medical History Medical History: Medical History Acute blood loss anemia Syncope Hematemesis Melena No active medical problems <Amos Turner MD - Last Filed: 04/24/25 00:31> Social History Social History: Social History Smoking packs per day: 0.5 Smoking cigarettes per day: 10.0 Years smoked: 25 Smoking pack-years: 12.50 Smoking status: Current every day smoker Tobacco type: cigarettes Alcohol intake: current Drinks per week: 42 Substance use: never Do You Feel Safe in your Home?: Yes Lack of Transportation: No Lack of Food: Never True Current Housing: I Have Housing Concerned About Future Housing: No Difficulty Paying Gas/Electric Bills: No Difficulty Paying for Meds: No Currently Unemployed: No Education: Associate Degree Difficulty w/ Childcare or Family Care: No Spiritual care concerns: No <Amos Turner MD - Last Filed: 04/24/25 00:31> Exam 2 Narrative: GENERAL: Unwell appearing, anasarca generalized from the ankles to the scrotum, jaundiced appearance HEAD: [Normocephalic, atraumatic.] EYES: Pupils equal reactive to light, extraocular movements are intact, bilateral jaundice symmetric ENT: Nares clear, no rhinorrhea or epistaxis. Mucous membranes moist. NECK: Supple. CHEST: [Clear to auscultation. No respiratory distress.] HEART: [Regular rate and rhythm]. No murmur heard. [Normal peripheral pulses.] ABDOMEN: Distended abdomen with abdominal striations, tender to palpation diffusely but no signs of peritonitis, [No rigidity or guarding] EXTREMITIES: Normal range of motion. 2+ pitting edema and anasarca up to the scrotum SKIN: Warm, dry, no rash. NEURO: [No focal deficits]. Alert and oriented [x3.] PSYCH: [Normal mood and affect.] <Amos Turner MD - Last Filed: 04/24/25 00:31> Course Course Emergency Course: 1851: No major care issues. Still awaiting a bed at [facility]. While in the ER patient had some sudden onset discomfort in his right buttock and then spontaneously draining abscess. The area was probed under local anesthetic and no additional drainage could be obtained. Care transferred back to Dr. Turner. Patient seen and evaluated this afternoon, no significant interval change from prior evaluation. Patient's laboratory studies are reviewed. Additional potassium supplementation ordered. Discussed the case with the hospitalist for admission to this facility on to a telemetry monitored bed while pending transfer to [facility] and patient was accepted to the hospital under Dr. Daniel. <Amos Turner MD - Last Filed: 04/24/25 00:31> 1851: No major care issues. Still awaiting a bed at [facility]. While in the ER patient had some sudden onset discomfort in his right buttock and then spontaneously draining abscess. The area was probed under local anesthetic and no additional drainage could be obtained. Care transferred back to Dr. Turner. <Ghassan Diaz MD - Last Filed: 04/23/25 18:53> Vital Signs Vital signs: Vital Signs Temperature 37.0 C 04/22/25 19:50 Pulse Rate 100 04/22/25 19:50 Respiratory Rate 27 H 04/22/25 19:50 Blood Pressure 145/93 H 04/22/25 19:50 Pulse Oximetry 100 04/22/25 19:50 Oxygen Delivery Room Air 04/22/25 19:50 Temperature 37.7 C H 04/23/25 23:14 Pulse Rate 92 04/23/25 23:14 Respiratory Rate 16 04/23/25 23:14 Blood Pressure 130/69 04/23/25 23:14 Pulse Oximetry 99 04/23/25 23:14 Oxygen Delivery Room Air 04/22/25 19:50 <Amos Turner MD - Last Filed: 04/24/25 00:31> Vital Signs Temperature 37.0 C 04/22/25 19:50 Pulse Rate 100 04/22/25 19:50 Respiratory Rate 27 H 04/22/25 19:50 Blood Pressure 145/93 H 04/22/25 19:50 Pulse Oximetry 100 04/22/25 19:50 Oxygen Delivery Room Air 04/22/25 19:50 Temperature 37.7 C H 04/23/25 23:14 Pulse Rate 92 04/23/25 23:14 Respiratory Rate 16 04/23/25 23:14 Blood Pressure 130/69 04/23/25 23:14 Pulse Oximetry 99 04/23/25 23:14 Oxygen Delivery Room Air 04/22/25 19:50 <Ghassan Diaz MD - Last Filed: 04/23/25 18:53> MDM - Abdominal Pain MDM Narrative Medical decision making narrative: 39-year-old male presenting to the emergency department for abdominal pain, generalized swelling and anasarca as well as jaundiced eyes and skin. He has a history of daily alcohol use and stopped 2 weeks ago after he knows he started changing colors. He had a recent admission to the ICU at [facility] after being admitted to [facility] for upper GI bleed. He had an EGD at that time that showed a bleeding gastric ulcer that stopped on its own. No signs of varicosities. He was transferred for GI coverage as we did not have GI for that week after the endoscopy. Patient states he had an uneventful transfer process and he was discharged after no interventions and brief observation stay at [facility]. Endorses abdominal pain and does have a tender abdomen diffusely without any signs of peritonitis. He is jaundiced with anasarca. Considerations for liver failure, cirrhosis, alcoholic liver disease, obstructing stone in the biliary system, cholecystitis, choledocholithiasis, cholangitis possible. Patient is afebrile. Saturating well on room air, normal blood pressure. Slightly tachypneic. CBC, CMP, lipase, bilirubin analysis, urinalysis, chest x-ray, EKG, CT abdomen pelvis with contrast obtained. He was given morphine for analgesia. Given albumin and Lasix to help with diuresis. Patient's laboratory studies showed no leukocytosis or significant anemia worse than baseline. Platelets are down to 88. Coagulation panel is deranged with an elevated INR of 2.4, elevated PT and PTT. Chemistry panel shows hypokalemia 3.3, normal creatinine, normal glucose, LFTs are elevated, lactic acid is normal. LFTs show elevated indirect hyperbilirubinemia, total bilirubin of 4.0, direct bilirubin of 0. Alk-phos elevated at 162. AST elevated at 87. Albumin low at 2.8, lipase elevated 478. Urinalysis negative for infection or blood.CT scan shows diffuse ascites, portal hypertension, gastric varices, lower esophageal varices, effusion in the lungs compared to x-ray that shows shows low lung volumes. Patient is 3rd spacing and has evidence of cirrhotic liver morphology and cirrhosis with high child's Lara classification given his scoring of 10. Discussed the case with sandwich maker Dr. Torres who recommended supportive care and will consult during admission. Spoke to the hospitalist currently being covered by the midlevel provider who initially requested attempting to transfer the patient to another facility who has hepatology and even potential IR for evaluation of a tips procedure given the varices found on the CT scan. [facility] was spoken to by the hospitalist team for transfer from the emergency department to their hospital with accepting hospitalist is Dr. Cabrera and consulting sandwich maker Dr. Hui. Patient and family made aware of the plans for transfer and he will may remain in the emergency department until bed assignment. Discussed with the hospitalist team for potential admission if prolonged transfer timeline and was informed that we can attempt to admit him tomorrow if no movement on transfer process. Patient remains hemodynamically stable and currently undergoing albumin infusions and diuresis with Lasix to help with his symptomatology. Patient was also given repletion of potassium given diuresis and already low potassium. <Amos Turner MD - Last Filed: 04/24/25 00:31> Medical Records Attestation: I reviewed the patient's medical records. <Amos Turner MD - Last Filed: 04/24/25 00:31> Lab Data Attestation: I reviewed the patient's lab results. <Amos Turner MD - Last Filed: 04/24/25 00:31> Result diagrams: 04/23/25 06:46 04/23/25 06:46 <Amos Turner MD - Last Filed: 04/24/25 00:31> Labs: Lab Results 04/22/25 04/22/25 04/23/25 Range/Units 19:57 20:59 06:46 WBC 7.0 3.9 L (4.5-10.0) K/mm3 RBC 3.21 L 2.61 L (4.6-6.20) M/mm3 Hgb 9.4 L 7.6 L (14.0-18.0) g/dL Hct 29.1 L 23.3 L (42.0-52.0) % MCV 90.7 89.3 (80-100) fl MCH 29.3 29.1 (26-34) pg MCHC 32.3 32.6 (32-36) g/dl RDW 19.5 H 19.6 H (11.5-14.5) % Plt Count 88 L D 71 L (150-375) k/mm3 MPV Not Reportable 11.4 H Immature Gran % (Auto) 0.3 0.3 (0-0.5) % Neut % (Auto) 58.3 44.7 L (45.5-73.1) % Lymph % (Auto) 26.1 39.5 (18.3-44.2) % [place] % (Auto) 10.4 H 10.6 H (2.6-8.5) % Eos % (Auto) 3.9 3.9 (0-4.4) % Baso % (Auto) 1.0 1.0 (0.2-1.2) % Lymph # (Auto) 1.83 1.52 (0.9-3.2) K/mm3 [place] # (Auto) 0.7 H 0.4 (0.1-0.6) K/mm3 Eos # (Auto) 0.3 0.2 (0-0.3) K/mm3 Baso # (Auto) 0.1 0.0 (0.0-0.1) K/mm3 Abs Immat Gran (auto) 0.02 0.01 (0.00-0.031) K/mm3 Absolute Neuts (auto) 4.1 1.7 (1.3-6.7) K/mm3 Absolute Nucleated RBC 0.000 0.000 (0.0-0.012) K/mm3 Band Neutrophils % Not Reportable Not Reportable Nucleated RBC % 0.0 0.0 (0.0-0.2) % Platelet Estimate Decreased Decreased (Adequate) % Immature Plt Fraction 5.8 5.0 (0.9-11.2) % Hypochromasia 2+ Anisocytosis 2+ Target Cells 1+ Tear Drop Cells 1+ Schistocytes None seen Rare PT 26.5 H (11.1-14.7) Seconds INR 2.5 APTT 42.3 H (22.3-36.8) Seconds Sodium 136 L 134 L (137-145) mmol/L Potassium 3.3 L 3.1 L (3.4-5.0) mmol/L Chloride 104 105 (98-107) mmol/L Carbon Dioxide 24 26 (22-30) mmol/L Anion Gap 8 3 L (4-12) mmol/L BUN 7 L D 6 L (9-20) mg/dL Creatinine 0.59 L 0.47 L (0.7-1.3) mg/dL Estim Creat Clear Calc 196 240 ml/min Estimated GFR > 60 > 60 (59 - ) Glucose 126 H 88 (65-110) mg/dL Lactic Acid 1.9 (0.7-2.0) mmol/L Calcium 7.7 L 7.7 L (8.4-10.2) mg/dL Total Bilirubin 4.0 H 3.8 H (0.2-1.3) mg/dL Direct Bilirubin 0.0 (0-0.3) mg/dL Indirect Bilirubin 1.8 H (0-1.1) mg/dL AST 87 H 65 H (17-59) U/L ALT 36 24 (6-50) U/L Alkaline Phosphatase 162 H 113 (38-126) U/L Total Protein 7.3 6.4 (6.3-8.2) g/dL Albumin 2.8 L 2.6 L (3.5-5.1) g/dL Lipase 478 H (23-300) U/L Urine Color Yellow (Yellow) Urine Appearance Clear (Clear) Urine pH 7.5 (5.0-9.0) Ur Specific [place] 1.011 (1.001-1.035) Urine Protein Negative (Negative) mg/dL Urine Glucose (UA) Negative (Negative) mg/dL Urine Ketones Negative (Negative) mg/dL Ur Blood (Man) Negative (Negative) Urine Nitrate Negative (Negative) Urine Bilirubin Negative (Negative) Urine Urobilinogen 1.0 (<2.0) mg/dL Leukocyte Esterase Rfl Negative (Negative) GISELE/UL <Amos Turner MD - Last Filed: 04/24/25 00:31> Lab Results 04/22/25 04/22/25 04/23/25 Range/Units 19:57 20:59 06:46 WBC 7.0 3.9 L (4.5-10.0) K/mm3 RBC 3.21 L 2.61 L (4.6-6.20) M/mm3 Hgb 9.4 L 7.6 L (14.0-18.0) g/dL Hct 29.1 L 23.3 L (42.0-52.0) % MCV 90.7 89.3 (80-100) fl MCH 29.3 29.1 (26-34) pg MCHC 32.3 32.6 (32-36) g/dl RDW 19.5 H 19.6 H (11.5-14.5) % Plt Count 88 L D 71 L (150-375) k/mm3 MPV Not Reportable 11.4 H Immature Gran % (Auto) 0.3 0.3 (0-0.5) % Neut % (Auto) 58.3 44.7 L (45.5-73.1) % Lymph % (Auto) 26.1 39.5 (18.3-44.2) % [place] % (Auto) 10.4 H 10.6 H (2.6-8.5) % Eos % (Auto) 3.9 3.9 (0-4.4) % Baso % (Auto) 1.0 1.0 (0.2-1.2) % Lymph # (Auto) 1.83 1.52 (0.9-3.2) K/mm3 [place] # (Auto) 0.7 H 0.4 (0.1-0.6) K/mm3 Eos # (Auto) 0.3 0.2 (0-0.3) K/mm3 Baso # (Auto) 0.1 0.0 (0.0-0.1) K/mm3 Abs Immat Gran (auto) 0.02 0.01 (0.00-0.031) K/mm3 Absolute Neuts (auto) 4.1 1.7 (1.3-6.7) K/mm3 Absolute Nucleated RBC 0.000 0.000 (0.0-0.012) K/mm3 Band Neutrophils % Not Reportable Not Reportable Nucleated RBC % 0.0 0.0 (0.0-0.2) % Platelet Estimate Decreased Decreased (Adequate) % Immature Plt Fraction 5.8 5.0 (0.9-11.2) % Hypochromasia 2+ Anisocytosis 2+ Target Cells 1+ Tear Drop Cells 1+ Schistocytes None seen Rare PT 26.5 H (11.1-14.7) Seconds INR 2.5 APTT 42.3 H (22.3-36.8) Seconds Sodium 136 L 134 L (137-145) mmol/L Potassium 3.3 L 3.1 L (3.4-5.0) mmol/L Chloride 104 105 (98-107) mmol/L Carbon Dioxide 24 26 (22-30) mmol/L Anion Gap 8 3 L (4-12) mmol/L BUN 7 L D 6 L (9-20) mg/dL Creatinine 0.59 L 0.47 L (0.7-1.3) mg/dL Estim Creat Clear Calc 196 240 ml/min Estimated GFR > 60 > 60 (59 - ) Glucose 126 H 88 (65-110) mg/dL Lactic Acid 1.9 (0.7-2.0) mmol/L Calcium 7.7 L 7.7 L (8.4-10.2) mg/dL Total Bilirubin 4.0 H 3.8 H (0.2-1.3) mg/dL Direct Bilirubin 0.0 (0-0.3) mg/dL Indirect Bilirubin 1.8 H (0-1.1) mg/dL AST 87 H 65 H (17-59) U/L ALT 36 24 (6-50) U/L Alkaline Phosphatase 162 H 113 (38-126) U/L Total Protein 7.3 6.4 (6.3-8.2) g/dL Albumin 2.8 L 2.6 L (3.5-5.1) g/dL Lipase 478 H (23-300) U/L Urine Color Yellow (Yellow) Urine Appearance Clear (Clear) Urine pH 7.5 (5.0-9.0) Ur Specific [place] 1.011 (1.001-1.035) Urine Protein Negative (Negative) mg/dL Urine Glucose (UA) Negative (Negative) mg/dL Urine Ketones Negative (Negative) mg/dL Ur Blood (Man) Negative (Negative) Urine Nitrate Negative (Negative) Urine Bilirubin Negative (Negative) Urine Urobilinogen 1.0 (<2.0) mg/dL Leukocyte Esterase Rfl Negative (Negative) GISELE/UL <Ghassan Diaz MD - Last Filed: 04/23/25 18:53> Imaging Data Attestation: I personally reviewed and interpreted this imaging study as follows: < Amos Turner MD - Last Filed: 04/24/25 00:31> My impression: Impressions Chest X-Ray 04/22/25 20:19 IMPRESSION: Low lung volumes with bibasilar atelectasis. Abdomen/Pelvis CT 04/22/25 21:10 IMPRESSION: Findings consistent with portal hypertension, as detailed above. <Amos Turner MD - Last Filed: 04/24/25 00:31> Radiologist's impression: ITS Impressions Chest X-Ray 04/22/25 20:19 IMPRESSION: Low lung volumes with bibasilar atelectasis. Abdomen/Pelvis CT 04/22/25 21:10 IMPRESSION: Findings consistent with portal hypertension, as detailed above. <Amos Turner MD - Last Filed: 04/24/25 00:31> ITS Impressions Chest X-Ray 04/22/25 20:19 IMPRESSION: Low lung volumes with bibasilar atelectasis. Abdomen/Pelvis CT 04/22/25 21:10 IMPRESSION: Findings consistent with portal hypertension, as detailed above. <Ghassan Diaz MD - Last Filed: 04/23/25 18:53> Critical Care Time Critical Care Time Critical Care Time: Yes <Amos Turner MD - Last Filed: 04/24/25 00:31> Total Critical Care Time: 75 <Amos Turner MD - Last Filed: 04/24/25 00:31> Discharge Plan Discharge Clinical Impression: Alcoholic liver failure, Cirrhosis of liver, Anasarca, Acute hypokalemia, Low serum albumin, Abdominal ascites, Child-Lara class C liver disease score <Amos Turner MD - Last Filed: 04/24/25 00:31> Patient Disposition: Acute Care Hospital <Amos Turner MD - Last Filed: 04/24/25 00:31> Condition: Stable <Amos Turner MD - Last Filed: 04/24/25 00:31>
--- NOTE | 2025-04-22 20:02 | ECG_ITS ---
Test Date: 2025-04-22 21:03:38 Measurements Intervals [place] Rate: 90 P: -15 [place]: 141 QRS: -11 QRSD: 109 T: 14 QT: 388 QTc: 476 Interpretive Statements SINUS RHYTHM BORDERLINE T WAVE ABNORMALITY- ANT/INF LEADS BASELINE ARTIFACT- I, II, V1, V5-V6 BORDERLINE ECG No previous ECG available for comparison Electronically Signed On 04-22-2025 21:05:48 CDT by Wilbert Granados D.O.
[2025-04-22 20:06] LABS: Basophils Absolute Auto 0.1 K/mm3 (0.0-0.1); Eosinophils Absolute Auto 0.3 K/mm3 (0-0.3); Eosinophils Percent Auto 3.9 % (0-4.4); Hematocrit 29.1 % (42.0-52.0); Hemoglobin 9.4 g/dL (14.0-18.0); Immature Granulocyte Absolute 0.02 K/mm3 (0.00-0.031); Immature Granulocyte Percent A 0.3 % (0-0.5); Immature Platelet Fraction Pct 5.8 % (0.9-11.2); Lymphocytes Absolute Auto 1.83 K/mm3 (0.9-3.2); Lymphocytes Percent Auto 26.1 % (18.3-44.2); Mean Corpuscular HGB Conc 32.3 g/dl (32-36); Mean Corpuscular Hemoglobin 29.3 pg (26-34); Mean Corpuscular Volume 90.7 fl (80-100); Monocytes Absolute Auto 0.7 K/mm3 (0.1-0.6); Monocytes Percent Auto 10.4 % (2.6-8.5); Neutrophils Absolute Auto 4.1 K/mm3 (1.3-6.7); Neutrophils Percent Auto 58.3 % (45.5-73.1); Platelet Count Result 88 k/mm3 (150-375); Red Blood Count 3.21 M/mm3 (4.6-6.20); Red Cell Distribution Width 19.5 % (11.5-14.5)
--- OUTSIDE RECORDS SUMMARY | 2025-04-22 20:10 | XMS_ITS | Clinical Summary ---
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
[2025-04-22] MEDS: FUROSEMIDE INJ 40 MG/4 ML VIAL IV PUSH (20:11)
[2025-04-22 20:16] VITALS: BP 147/85; PULSE 98; RESP 21; O2SAT 98
[2025-04-22 20:17] LABS: Lactic Acid Reflex 1.9 mmol/L (0.7-2.0)
[2025-04-22 20:18] LABS: Alanine Aminotransferase 36 U/L (6-50); Albumin Level 2.8 g/dL (3.5-5.1); Alkaline Phosphatase 162 U/L (38-126); Anion Gap 8 mmol/L (4-12); Aspartate Amino Transferase 87 U/L (17-59); Bilirubin Indirect 1.8 mg/dL (0-1.1); Blood Urea Nitrogen 7 mg/dL (9-20); Calcium 7.7 mg/dL (8.4-10.2); Carbon Dioxide 24 mmol/L (22-30); Chloride 104 mmol/L (98-107); Estimated CRCL calculation 196 ml/min; Estimated Glomerular Filt Rate > 60; Glucose 126 mg/dL (65-110); Lipase 478 U/L (23-300); Potassium 3.3 mmol/L (3.4-5.0); Sodium 136 mmol/L (137-145); Total Protein 7.3 g/dL (6.3-8.2)
[2025-04-22 20:19] LABS: INR 2.5; Prothrombin Time 26.5 Seconds (11.1-14.7)
[2025-04-22 20:20] LABS: Partial Thromboplastin Time 42.3 Seconds (22.3-36.8)
[2025-04-22] MEDS: ALBUMIN HUMAN 25% 25 GM/100 ML 100 ML IVPB (20:23)
[2025-04-22 20:37] LABS: Platelet Estimate Decreased (Adequate); Schistocytes None Seen
[2025-04-22] MEDS: MORPHINE SULFATE (*CRX) 4 MG/ML INJ IV PUSH (20:56)
[2025-04-22 21:09] LABS: Add Urine Microscopic? NO; Appearance Urine Clear (Clear); Bilirubin Urine Negative (Negative); Blood Urine Negative (Negative); Color Urine Yellow (Yellow); Glucose Urine UA Negative (Negative); Ketones Urine Negative (Negative); Leukocyte Esterase Ur Negative LEU/UL (Negative); Nitrate Urine Negative (Negative); Protein Urine Negative (Negative); Specific Grav Ur 1.011 (1.001-1.035); pH Urine 7.5 (5.0-9.0)
[2025-04-22] MEDS: POTASSIUM CHLORIDE 20 MEQ PACKET (FOR LIQUID) 40 MEQ PO (21:38)
[2025-04-22] MEDS: KCL 20 MEQ/SW 100 ML 100 ML 50 MEQ IVPB (21:45)
[2025-04-22 21:56] VITALS: BP 137/76; PULSE 98; RESP 15; O2SAT 100
--- NOTE | 2025-04-22 23:15 | PC.NURSE ---
Pt accepted as a transfer to [facility], awaiting a bed assignment.
--- NOTE | 2025-04-22 23:37 | PM.EVENT ---
Event Note Event Note Event Note: I was contacted by the emergency department regarding patient with alcohol related cirrhosis with anasarca and jaundice. I reviewed his labs which have multiple signs of worsening condition since patient was last seen here 2 months ago. I calculated a MELD score of 23 based on labs today. I reviewed CT imaging and discussed case with ER physician Dr. Turner. Due to patient's worsening renal function and significant anasarca/ascites with elevated INR, I recommended transfer to higher level of care to establish with Hepatology. Dr. Turner stated that he had talked to Dr. Torres (GI) prior to calling me and Dr. Torres stated we would just treat his symptoms. I offered to make the phone calls to transfer center to get patient transferred from the ER since it would be a higher priority transfer coming out of ER rather than off the floor. He stated that he would wait to hear back. I spoke to [facility] Transfer Center and connected with hospitalist Dr. Cabrera who requested I also speak with GI to make sure they will consult. Spoke to Dr. Hui with GI who stated that he does not give recommendations by phone but will consult when patient arrives. Transfer Center stated that bed will likely be available tomorrow, though no guarantee can be made.
[2025-04-23] VITALS (16 sets, daily range): BP systolic 101–134; BP diastolic 50–77; PULSE 86–99; RESP 14–25; TEMP 36.7–37.7; O2SAT 97–100
--- NOTE | 2025-04-23 00:53 | PC.NURSE ---
Pt given sandwich, chips, and ice water.
--- NOTE | 2025-04-23 01:30 | PC.NURSE ---
Hospital bed brought down from [facility] for pt.
[2025-04-23] MEDS: ALBUMIN HUMAN 25% 25 GM/100 ML 100 ML IVPB ×3 (03:01→15:38)
[2025-04-23 06:54] LABS: Eosinophils Absolute Auto 0.2 K/mm3 (0-0.3); Eosinophils Percent Auto 3.9 % (0-4.4); Hematocrit 23.3 % (42.0-52.0); Hemoglobin 7.6 g/dL (14.0-18.0); Immature Granulocyte Absolute 0.01 K/mm3 (0.00-0.031); Immature Granulocyte Percent A 0.3 % (0-0.5); Lymphocytes Absolute Auto 1.52 K/mm3 (0.9-3.2); Lymphocytes Percent Auto 39.5 % (18.3-44.2); Mean Corpuscular HGB Conc 32.6 g/dl (32-36); Mean Corpuscular Hemoglobin 29.1 pg (26-34); Mean Corpuscular Volume 89.3 fl (80-100); Mean Platelet Volume 11.4 fl (7.4-10.4); Monocytes Absolute Auto 0.4 K/mm3 (0.1-0.6); Monocytes Percent Auto 10.6 % (2.6-8.5); Neutrophils Absolute Auto 1.7 K/mm3 (1.3-6.7); Neutrophils Percent Auto 44.7 % (45.5-73.1); Platelet Count Result 71 k/mm3 (150-375); Red Blood Count 2.61 M/mm3 (4.6-6.20); Red Cell Distribution Width 19.6 % (11.5-14.5); White Blood Count 3.9 K/mm3 (4.5-10.0)
[2025-04-23 07:10] LABS: Alanine Aminotransferase 24 U/L (6-50); Albumin Level 2.6 g/dL (3.5-5.1); Alkaline Phosphatase 113 U/L (38-126); Anion Gap 3 mmol/L (4-12); Aspartate Amino Transferase 65 U/L (17-59); Bilirubin,Total 3.8 mg/dL (0.2-1.3); Blood Urea Nitrogen 6 mg/dL (9-20); Calcium 7.7 mg/dL (8.4-10.2); Carbon Dioxide 26 mmol/L (22-30); Chloride 105 mmol/L (98-107); Estimated CRCL calculation 240 ml/min; Estimated Glomerular Filt Rate > 60; Glucose 88 mg/dL (65-110); Potassium 3.1 mmol/L (3.4-5.0); Sodium 134 mmol/L (137-145); Total Protein 6.4 g/dL (6.3-8.2)
[2025-04-23 07:45] LABS: Anisocytosis 2+; Hypochromasia 2+; Platelet Estimate Decreased (Adequate); Schistocytes Rare; Target Cells 1+; Tear Drop Cells 1+
[2025-04-23] MEDS: MORPHINE SULFATE (*CRX) 4 MG/ML INJ IV PUSH (15:58)
--- NOTE | 2025-04-23 18:36 | PC.NURSE ---
pt called out and c/o pain in his rectum and feeling like something popped. this RN went to check and noticed red/brown drainage on pt underwear and bed. EDP Dr. Diaz aware and will attempt to drain abscess
--- NOTE | 2025-04-23 19:28 | PC.NURSE ---
Bedside report received from Leslee DIXON
[2025-04-23] MEDS: POTASSIUM CHLORIDE 20 MEQ PACKET (FOR LIQUID) 40 MEQ PO (22:13)
[2025-04-23] MEDS: KCL 20 MEQ/SW 100 ML 100 ML 50 MEQ IVPB (22:29)
[2025-04-24] VITALS (9 sets, daily range): BP systolic 122–134; BP diastolic 59–66; PULSE 80–97; RESP 18; TEMP 36.8–37.1; O2SAT 99–100; BMI 34.1; BMI 34.6
--- NOTE | 2025-04-24 00:38 | ADMGEN ---
This patient, Jun De La Rosa, was admitted to 2 Medical Room 248-01. Patient/family oriented to hospital policies and general routines including ID bracelet, bed and alarms, visiting hours, pain management, procedures, bathroom and other care routines, personal items, smoking policy, room service/diet, and visiting hours. Information on how to activate the Rapid Response Team has been discussed. Patient/Family are encouraged to report perceived risks to care and to ask questions if they do not understand what they are told or what they should do.
--- NOTE | 2025-04-24 09:56 | PM.IMHP ---
H&P: HPI History of Present Illness Date/Time: 04/24/25 09:56 Chief Complaint: Abdominal pain Narrative: 39-year-old male with a past medical history including alcohol use disorder, bleeding gastric ulcers requiring endoscopy visited ER due to abdominal pain, generalized swelling and anasarca as well as jaundiced eyes and skin. He has a history of daily alcohol use and stopped 2 weeks ago after he knows he started changing colors. He states his eyes started turning yellow when he began becoming more distended and now having body discoloration pitting edema from his ankles to his scrotum. Patient was admitted in [facility] on 02/28/24 and underwent EGD did not found any varices but find a large bleeding gastric ulcer with pool of blood in the stomach, unable to visualize all the stomach mucosa but GI felt the was no longer active bleeding. GI requested to transfer the patient as there will be no GI service rest of the week and patient needed acute intervention if there is a possibility of rebleeding. He was discharged after brief stay at [facility] and no intervention happened. Currently patient is admitted due to multiple conditions related to alcoholic cirrhosis. Patient has been accepted at [facility] but currently admitted until the transfer happen. Patient will be symptomatically managed with the albumin and Lasix as needed for ascites. Ordered paracentesis with studies to rule out transudate versus exudate. Patient reports the of abdominal pain. Patient still drinks 6 pack beer until 3 weeks ago. Order hepatitis panel. Patient received albumin in ED. Review of Systems Review of Systems: As reviewed above in HPI [facility] Past Medical History Medical History Acute blood loss anemia Syncope Hematemesis Melena No active medical problems Family History Family History (Updated 04/24/25 @ 00:46 by Alea Weller RN) Grandparent Cancer Social History Social History Smoking packs per day: 0.5 Smoking cigarettes per day: 10.0 Years smoked: 27 Smoking pack-years: 13.50 Smoking status: Current every day smoker Tobacco type: cigarettes Alcohol intake: current Drinks per week: 63 Substance use: never Do You Feel Safe in your Home?: Yes Lack of Transportation: No Lack of Food: Never True Current Housing: I Have Housing Concerned About Future Housing: No Difficulty Paying Gas/Electric Bills: No Difficulty Paying for Meds: No Currently Unemployed: YES Education: High School Diploma/GED Difficulty w/ Childcare or Family Care: No Spiritual care concerns: No Meds Home Medications and Allergies Home Medications ?Medication ?Instructions ?Recorded ?Confirmed ?Type No Home Medications 02/28/24 04/24/25 History Allergies Allergy/AdvReac Type Severity Reaction Status Date / Time No Known Allergies Allergy Verified 04/24/25 00:56 Vital Signs Vital Signs - 24 hr 04/23/25 10:01 04/23/25 11:01 04/23/25 12:01 Temperature Pulse Rate 96 90 93 Respiratory Rate 20 20 19 Blood Pressure 119/72 116/74 111/70 Pulse Oximetry 100 98 04/23/25 14:49 04/23/25 15:01 04/23/25 17:01 Temperature 98.0 F Pulse Rate 91 92 87 Respiratory Rate 25 H 20 24 H Blood Pressure 114/62 123/65 134/75 Pulse Oximetry 99 04/23/25 18:01 04/23/25 19:28 04/23/25 21:00 Temperature 98.1 F Pulse Rate 88 98 90 Respiratory Rate 14 16 24 H Blood Pressure 126/77 130/76 127/72 Pulse Oximetry 99 97 100 04/23/25 23:14 04/24/25 00:33 04/24/25 04:00 Temperature 99.8 F H 98.3 F Pulse Rate 92 88 95 Respiratory Rate 16 18 Blood Pressure 130/69 126/60 Pulse Oximetry 99 100 04/24/25 05:05 Temperature 98.7 F Pulse Rate 82 Respiratory Rate 18 Blood Pressure 122/59 L Pulse Oximetry 99 Exam Narrative: GENERAL: Unwell appearing, anasarca generalized from the ankles to the scrotum, jaundiced appearance HEAD: [Normocephalic, atraumatic.] EYES: Pupils equal reactive to light, extraocular movements are intact, bilateral jaundice symmetric ENT: Nares clear, no rhinorrhea or epistaxis. Mucous membranes moist. NECK: Supple. CHEST: [Clear to auscultation. No respiratory distress.] HEART: [Regular rate and rhythm]. No murmur heard. [Normal peripheral pulses.] ABDOMEN: Distended abdomen with abdominal striations, tender to palpation diffusely but no signs of peritonitis, [No rigidity or guarding] EXTREMITIES: Normal range of motion. 2+ pitting edema and anasarca up to the scrotum SKIN: Warm, dry, no rash. NEURO: [No focal deficits]. Alert and oriented [x3.] PSYCH: [Normal mood and affect.] Assessment and Plan Assessment and plan (1) Alcohol dependence: Code(s): F10.20 - Alcohol dependence, uncomplicated Status: Acute (2) Hematemesis: Code(s): K92.0 - Hematemesis Status: Acute (3) Gastric ulcer: Code(s): K25.9 - Gastric ulcer, unspecified as acute or chronic, without hemorrhage or perforation Status: Acute (4) Alcoholic liver failure: Code(s): K70.40 - Alcoholic hepatic failure without coma Status: Acute (5) Cirrhosis of liver: Code(s): K74.60 - Unspecified cirrhosis of liver Status: Acute (6) Abdominal ascites: Code(s): R18.8 - Other ascites Status: Acute (7) Anemia: Qualifiers: Anemia type: unspecified type Qualified Code(s): D64.9 - Anemia, unspecified Code(s): D64.9 - Anemia, unspecified Status: Acute Plan Ascites Na restriction 2g/day Albumin infusion as needed. Received 3 bags today Furosemide 40 mg IV q.d. fluid restriction if Na less than 125mmol/l Will consider paracentesis after GI evaluation Pending transfer for TIPS do not use non selective beta-aramis if sbp less than 90,Na<130,cr> 1.5 esvin: hold diuretics,plasma volume expansion with albumin 1g/kg for 24-48 hours last resort: terlipressin plus albumin avoid nephrotoxic drugs NSAIDs and iodine contrast Order hepatitis panel Esophageal varices Protonix 40 mg IV b.i.d. Evidence esophageal varices in CT scan GI following DVT prophylaxis SCD ordered due to thrombocytopenia Hospitalist MIPS Advance Care Plan I have confirmed that the patient's Advanced Care Plan is present, code status is documented, or surrogate decision maker is listed in patient medical record.: Yes Medication Reconciliation I have utilized all available resources to obtain, update and review the patients current medications (includes all prescriptions, OTC, herbals, cannabis, and nutritional supplements).: Yes
[2025-04-24] MEDS: FUROSEMIDE INJ 40 MG/4 ML VIAL IV PUSH (10:55)
[2025-04-24] MEDS: HYDROcodone/acetaminophen (*CRX) 5-325 MG TABLET 1 TAB PO ×3 (12:21→22:00)
--- NOTE | 2025-04-24 12:28 | CY_PTH ---
PATIENT: Jun Beach LOC: [id number] U#:[id number] AGE/SX: 40/M ROOM: 248 RE04/23/[address]: Evon Remy PA-C : 1985 BED: 01 DIS: 05/01/2025 SPEC #: [id number] RECD: 04/30/25 09:30 STATUS: LAURA RESudhakar #: [id number] MARLENE: 04/24/25 12:[address]: Joaquín Davis DEPT: [facility] Cytology RECD BY: Mary Welch ENTERED: 04/30/25 09:31 SP TYPE: Cytology OTHR DR: Mohini Daniel DO GLASS DESIGNER PHYSICIAN LINDA Lawson MD Tissues: A - Ascites Fluid Procedures: Hematoxylin and Eosin Stain Cell Block Cytopathology Cytospin
--- NOTE | 2025-04-24 17:11 | P.CONGI_ITS ---
Assessment and Plan Assessment and plan (1) Alcoholic hepatitis: Code(s): K70.10 - Alcoholic hepatitis without ascites Status: Acute Assessment and Plan: supportive care, nutrition support will monitor thiamine ciwa protocol but he has not been drinking for over 2 weeks mostly because he noted edema and abdominal discomfort (2) Cirrhosis, alcoholic: Code(s): K70.30 - Alcoholic cirrhosis of liver without ascites Status: Acute Assessment and Plan: also anasarca will give diuretics and monitor lytes/renal function meld score 17 (3) Leg edema: Code(s): R60.0 - Localized edema Status: Acute (4) Portal hypertension: Code(s): K76.6 - Portal hypertension Status: Acute (5) Anemia: Qualifiers: Anemia type: unspecified type Qualified Code(s): D64.9 - Anemia, unspecified Code(s): D64.9 - Anemia, unspecified Status: Acute Assessment and Plan: no obvious gib will monitor (6) Anasarca: Code(s): R60.1 - Generalized edema Status: Acute Assessment and Plan: ? ascites will attempt paracentesis and study fluid (7) Thrombocytopenia: Code(s): D69.6 - Thrombocytopenia, unspecified Status: Acute Assessment and Plan: from liver disease GI Consult Note Consult date/time: 04/24/25 17:11 Reason for consult: alcholic hepatitis HPI: Jun De La Rosa is a 39 year old male who is alcoholic (drinks at least 6 pack daily and tequila), last hospitalization about 1 year ago when he came with UGI due to gastric ulcer. He is here with 3 weeks of leg edema, decrease appetite and increase abdominal girth, he was feeling sick and that was the reason why he has not been drinking for about 2 weeks. Here with elevated liver enzymes indicating alcoholic hepatitis, CT scan with portal HTN changes, leg edema. Started on lasix and aldactone. Blood work bili 3.5, inr 2.5, creat 0.5, hgb 7.6. No GIB. Never had paracentesis Review of Systems 2 Constitutional: Constitutional: Reports fatigue Eyes: Eyes: Denies blurry vision ENT: Reports Normal hearing present Cardiovascular: Cardiovascular: Denies chest pain Respiratory: Respiratory: Reports dyspnea on exertion Gastrointestinal: Gastrointestinal: Reports abdominal pain Musculoskeletal: Musculoskeletal: Denies neck pain Integumentary/Breasts: Skin/Breast: Denies rash Neurologic: Denies Abnormal speech present Psychiatric: Psychiatric: Denies confusion [facility] Past Medical History Medical History (Updated 04/24/25 @ 17:29 by Gregory Caldwell MD) Thrombocytopenia Portal hypertension Leg edema Cirrhosis, alcoholic Alcoholic hepatitis Acute blood loss anemia Syncope Hematemesis Melena No active medical problems Family History Family History (Updated 04/24/25 @ 00:46 by Alea Weller RN) Grandparent Cancer Social History Social History Smoking packs per day: 0.5 Smoking cigarettes per day: 10.0 Years smoked: 27 Smoking pack-years: 13.50 Smoking status: Current every day smoker Tobacco type: cigarettes Alcohol intake: current Drinks per week: 63 Substance use: never Do You Feel Safe in your Home?: Yes Lack of Transportation: No Lack of Food: Never True Current Housing: I Have Housing Concerned About Future Housing: No Difficulty Paying Gas/Electric Bills: No Difficulty Paying for Meds: No Currently Unemployed: YES Education: High School Diploma/GED Difficulty w/ Childcare or Family Care: No Spiritual care concerns: No Meds Home Medications and Allergies Home Medications ?Medication ?Instructions ?Recorded ?Confirmed ?Type No Home Medications 02/28/24 04/24/25 History Allergies Allergy/AdvReac Type Severity Reaction Status Date / Time No Known Allergies Allergy Verified 04/24/25 00:56 Vital Signs Vital Signs - 24 hr 04/23/25 18:01 04/23/25 19:28 04/23/25 21:00 Temperature 98.1 F Pulse Rate 88 98 90 Respiratory Rate 14 16 24 H Blood Pressure 126/77 130/76 127/72 Pulse Oximetry 99 97 100 Oxygen Delivery 04/23/25 23:14 04/24/25 00:33 04/24/25 04:00 Temperature 99.8 F H 98.3 F Pulse Rate 92 88 95 Respiratory Rate 16 18 Blood Pressure 130/69 126/60 Pulse Oximetry 99 100 Oxygen Delivery 04/24/25 05:05 04/24/25 08:00 04/24/25 08:15 Temperature 98.7 F Pulse Rate 82 80 Respiratory Rate 18 18 Blood Pressure 122/59 L Pulse Oximetry 99 99 Oxygen Delivery Room Air 04/24/25 12:02 Temperature Pulse Rate 94 Respiratory Rate Blood Pressure Pulse Oximetry Oxygen Delivery Exam 2 Const: Other: chronically ill appearing HENMT: Face/Nose/Sinus: Normal nares present Eyes: General: appearance normal, both eyes and all related structures Neck: Neck: supple Resp: Auscultation: no rhonchi and diminished lung sounds Cardio: Rate: regular rate GI: GI Palp: Yes Soft to palpation and Yes Tenderness to palpation present (GI) (mild ttp) Auscultation: normal bowel sounds Other: ? fluid wave Skin: Other: mild icteric Neuro: Speech: normal speech Motor exam (neuro): 5/5 motor strength present throughout Extrem: General: pedal edema Psych: Affect: Anxious affect present Results Labs 04/23/25 06:46 04/23/25 06:46
[2025-04-24 18:05] LABS: Hepatitis B Surface Antigen Negative (Negative)
[2025-04-24 18:14] LABS: HAV RESULT Negative (Negative); Hepatitis B Core IgM Result Negative (Negative)
[2025-04-24 18:22] LABS: Hepatitis C Virus Antibody Negative (Negative)
[2025-04-24] MEDS: PANTOPRAZOLE SODIUM IV 40 MG VIAL IV PUSH (22:00)
[2025-04-25] VITALS (12 sets, daily range): BP systolic 116–148; BP diastolic 60–72; PULSE 71–110; RESP 16–18; TEMP 36.9–37.3; O2SAT 97–100
--- NOTE | 2025-04-25 | ECHO_ITS ---
Patient Info Name: Jun De La Rosa Age: 39 years : 1985 Gender: Male Ht: 73 in Wt: 259 lbs BSA: 2.50 m2 HR: 86 bpm BP: 116 / 63 mmHg Technical Quality: Good Exam Date: 04/25/2025 2:43 PM Patient Status: I Admit Date: 04/23/2025 Exam Type: CA echo doppler color flow Complete two-dimensional, color flow and Doppler transthoracic echocardiogram is performed. Staff Referring Physician: Joaquín Davis Mold Changer: Elizabeth Gomez Attending Provider: Mohini Daniel DO Summary 1. Complete two-dimensional, color flow and Doppler transthoracic echocardiogram is performed. 2. Left ventricular chamber dimension is normal. 3. Left ventricular systolic function is normal, estimated at 65-70. 4. The left ventricular diastolic function is normal. 5. E/e' 10 is slightly elevated. 6. Left atrial chamber dimension is mildly enlarged. 7. Dilated inferior vena cava with >50% collapse upon inspiration consistent with elevated right atrial pressure, 10 mmHg. Left Ventricle E/e' 10 is slightly elevated. Left ventricular chamber dimension is normal. Left ventricular systolic function is normal, estimated at 65-70. The left ventricular diastolic function is normal. Right Ventricle Right ventricular chamber dimension is normal. Right ventricular systolic function is normal and with normal TAPSE 2.5 cm. Left Atria Left atrial chamber dimension is mildly enlarged. Right Atria Right atrial chamber dimension is normal. Aortic Valve The aortic valve is trileaflet. There is no aortic valve stenosis. There is no aortic valve regurgitation. Pulmonic Valve There is no pulmonic regurgitation. Mitral Valve There is no mitral valve stenosis. There is no mitral valve regurgitation. Tricuspid Valve There is no tricuspid valve regurgitation. Pericardium/Pleural There is no pericardial effusion. Inferior Vena Cava Dilated inferior vena cava with >50% collapse upon inspiration consistent with elevated right atrial pressure, 10 mmHg. Aorta The aortic root size at the sinus of Valsalva is normal. Left Ventricular Outflow Tract Name Value Normal LVOT 2D LVOT Diameter 2.0 cm LVOT Doppler LVOT Peak Velocity 172 cm/s LVOT Peak Gradient 10 mmHg LVOT Mean Gradient 4 mmHg LVOT VTI 35 cm LVOT VTI/AV VTI Ratio 0.9 LVOT Stroke Volume 106 ml LVOT CO 7.4 l/min LVOT CI 2.9 l/min/m2 Pulmonic Valve Name Value Normal RVOT Doppler RVOT Peak Velocity 124 cm/s RVOT Peak Gradient 6 mmHg PV Doppler PV Peak Velocity 142 cm/s PV Peak Gradient 8 mmHg Mitral Valve Name Value Normal MV Diastolic Function MV E Peak Velocity 135 cm/s MV A Peak Velocity 133 cm/s MV E/A 1.0 MV Decel Time (PW) 250 ms MV Annular TDI MV E/e' (Septal) 12.5 MV E/e' (Lateral) 9.8 MV E/e' (Average) 11.1 Tricuspid Valve Name Value Normal Estimated PAP/RSVP RA Pressure 10 mmHg <=5 Aortic Valve Name Value Normal AV Doppler AV Peak Velocity 196 cm/s AV Peak Gradient 14 mmHg AV Mean Gradient 8 mmHg AV VTI 38 cm AV Area (Cont Eq VTI) 2.8 cm2 >=3.0 AV Area (Cont Eq Jaylen) 2.6 cm2 AV DI (Jaylen) 0.88 AV Regurgitation 2D LVOT Area 3.0 cm2 Ventricles Name Value Normal LV Dimensions 2D/MM IVS Diastolic Thickness (2D) 1.1 cm 0.6-1.0 LVID Diastole (2D) 5.6 cm 4.2-5.8 LVIW Diastolic Thickness (2D) 1.0 cm 0.6-1.0 LVID Systole (2D) 3.4 cm 2.5-4.0 LVOT Diameter 2.0 cm LV Mass (2D Cubed) 226.76 g 88.00-224.00 LV Mass Index (2D Cubed) 91 g/m2 49-115 Relative Wall Thickness (2D) 0.34 <=0.42 LV Fractional Shortening/Ejection Fraction 2D/MM LV Fractional Shortening (2D) 39 % 25-43 LV EF (2D Teichholz) 69 % LV Diastolic Volume (4C MOD) 148 ml LV EF (4C MOD) 55 % LV Diastolic Volume (2C MOD) 173 ml LV EF (2C MOD) 64 % LV Diastolic Volume (BP MOD) 166 ml 62-150 LV Diastolic Volume Index (BP MOD) 66 ml/m2 34-74 LV Systolic Volume (BP MOD) 51 ml 21-61 LV Systolic Volume Index (BP MOD) 21 ml/m2 11-31 LV EF (BP MOD) 69 % 52-72 LV Diastolic Length (4C) 9.5 cm LV Systolic Length (4C) 7.3 cm LV Stroke Volume (4C MOD) 82 ml Atria Name Value Normal LA Dimensions LA Volume (4C A-L) 74 ml LA Volume (BP A-L) 59 ml RA Dimensions RA Systolic Major [place] Length (4C) 4.6 cm 2.1-2.7 RA Area (4C) 11.2 cm2 <=18.0 Report Signatures
[2025-04-25 05:04] LABS: Hematocrit 25.8 % (42.0-52.0); Hemoglobin 8.1 g/dL (14.0-18.0); Immature Platelet Fraction Pct 5.7 % (0.9-11.2); Mean Corpuscular HGB Conc 31.4 g/dl (32-36); Mean Corpuscular Hemoglobin 28.9 pg (26-34); Mean Corpuscular Volume 92.1 fl (80-100); Mean Platelet Volume 12.1 fl (7.4-10.4); Platelet Count Result 73 k/mm3 (150-375); Red Cell Distribution Width 19.5 % (11.5-14.5); White Blood Count 3.2 K/mm3 (4.5-10.0)
[2025-04-25 05:14] LABS: Alanine Aminotransferase 23 U/L (6-50); Albumin Level 2.5 g/dL (3.5-5.1); Alkaline Phosphatase 129 U/L (38-126); Anion Gap 6 mmol/L (4-12); Aspartate Amino Transferase 73 U/L (17-59); Bilirubin,Total 3.4 mg/dL (0.2-1.3); Blood Urea Nitrogen 6 mg/dL (9-20); Calcium 8.1 mg/dL (8.4-10.2); Carbon Dioxide 24 mmol/L (22-30); Chloride 106 mmol/L (98-107); Estimated CRCL calculation 247 ml/min; Estimated Glomerular Filt Rate > 60; Glucose 87 mg/dL (65-110); Potassium 3.4 mmol/L (3.4-5.0); Sodium 136 mmol/L (137-145); Total Protein 6.1 g/dL (6.3-8.2)
[2025-04-25 05:15] LABS: INR 2.8; Prothrombin Time 28.6 Seconds (11.1-14.7)
[2025-04-25 05:16] LABS: Partial Thromboplastin Time 45.1 Seconds (22.3-36.8)
--- NOTE | 2025-04-25 09:13 | PM.IMPN ---
Progress Note: A&P Assessment and Plan (1) Alcohol dependence: Code(s): F10.20 - Alcohol dependence, uncomplicated Status: Acute (2) Hematemesis: Code(s): K92.0 - Hematemesis Status: Acute (3) Gastric ulcer: Code(s): K25.9 - Gastric ulcer, unspecified as acute or chronic, without hemorrhage or perforation Status: Acute (4) Alcoholic liver failure: Code(s): K70.40 - Alcoholic hepatic failure without coma Status: Acute (5) Cirrhosis of liver: Code(s): K74.60 - Unspecified cirrhosis of liver Status: Acute (6) Abdominal ascites: Code(s): R18.8 - Other ascites Status: Acute (7) Anemia: Qualifiers: Anemia type: unspecified type Qualified Code(s): D64.9 - Anemia, unspecified Code(s): D64.9 - Anemia, unspecified Status: Acute Plan Ascites Na restriction 2g/day Albumin infusion as needed. Received 3 bags today Furosemide 40 mg IV q.d. fluid restriction if Na less than 125mmol/l Will consider paracentesis after GI evaluation Pending transfer for TIPS do not use non selective beta-aramis if sbp less than 90,Na<130,cr> 1.5 esvin: hold diuretics,plasma volume expansion with albumin 1g/kg for 24-48 hours last resort: terlipressin plus albumin avoid nephrotoxic drugs NSAIDs and iodine contrast Order hepatitis panel Esophageal varices Protonix 40 mg IV b.i.d. Evidence esophageal varices in CT scan GI following Alcohol withdrawal CIWA score 0 Thiamine and folic acid Last alcohol drink 3 weeks ago Lorazepam 2 mg q.4 hours p.r.n. for seizure Monitor development of withdrawal symptoms Monitor LFTs Abdomen/pelvis CT shows portal hypertension and esophageal versus Consider meloxicam or abdominal pain Hypoglycemic med protocol CBC and CMP including Mag and phos AST ALT Hepatitis panel negative Alcohol level less than 10 DVT prophylaxis SCD ordered due to thrombocytopenia Subjective Date/time seen: 04/25/25 09:13 Interval history: Radiology was unable to perform a paracentesis due to low platelet and increased PT PTT. Transfuse 1 unit of FFP. Will attempt a paracentesis tomorrow after the repeat labs. Ordered albumin 25% q.6 hours 3 bags. Review of Systems Review of Systems: As reviewed above in HPI Exam Narrative: GENERAL: Unwell appearing, anasarca generalized from the ankles to the scrotum, jaundiced appearance HEAD: [Normocephalic, atraumatic.] EYES: Pupils equal reactive to light, extraocular movements are intact, bilateral jaundice symmetric ENT: Nares clear, no rhinorrhea or epistaxis. Mucous membranes moist. NECK: Supple. CHEST: [Clear to auscultation. No respiratory distress.] HEART: [Regular rate and rhythm]. No murmur heard. [Normal peripheral pulses.] ABDOMEN: Distended abdomen with abdominal striations, tender to palpation diffusely but no signs of peritonitis, [No rigidity or guarding] EXTREMITIES: Normal range of motion. 2+ pitting edema and anasarca up to the scrotum SKIN: Warm, dry, no rash. NEURO: [No focal deficits]. Alert and oriented [x3.] PSYCH: [Normal mood and affect.] Objective Data Vital Signs Vital Signs: Vital Signs - 24 hr 04/24/25 12:02 04/24/25 16:02 04/24/25 20:00 Temperature Pulse Rate 94 88 89 Respiratory Rate Blood Pressure Pulse Oximetry Oxygen Delivery 04/24/25 20:00 04/24/25 20:35 04/25/25 00:00 Temperature 98.3 F Pulse Rate 97 83 Respiratory Rate 18 Blood Pressure 134/66 Pulse Oximetry 99 Oxygen Delivery Room Air 04/25/25 04:00 04/25/25 05:32 Temperature 98.8 F Pulse Rate 80 71 Respiratory Rate 18 Blood Pressure 116/63 Pulse Oximetry 97 Oxygen Delivery Intake/Output Intake/Output: Intake & Output 04/22/25 04/23/25 04/24/25 04/25/25 23:59 23:59 23:59 23:59 Intake Total 156 744 4277 0 Output Total 200 Balance 100 400 970 0 Meds/Results Medications: Active Medications Generic Name Dose Route Start Last Admin Trade Name Freq PRN Reason Stop Dose Admin Hydrocodone Bitart/Acetaminophen 1 tab 04/24/25 11:47 04/24/25 22:00 Hydrocodone/Acetaminophen (*Crx) 5-325 Mg Tablet PO 1 tab Q4H PRN Administration Pain Rated 7-10 Furosemide 40 mg 04/24/25 09:00 04/24/25 10:55 Furosemide Inj 40 Mg/4 Ml Vial IV PUSH 40 mg DAILY SAEID Administration Sodium Chloride 250 mls @ 30 mls/hr 04/25/25 08:57 Normal Saline Iv IV CONT 04/25/25 17:16 .Q8H20M STA Pantoprazole Sodium 40 mg 04/24/25 21:00 04/24/25 22:00 Pantoprazole Sodium Iv 40 Mg Vial IV PUSH 40 mg Q12HR SAEID Administration Perflutren Lipid Microsphere 0 ml 04/25/25 07:31 Perflutren Lipid Microspheres 1.5 Ml Vial Diluted To 10 Ml Total Volume IV PUSH 04/28/25 07:31 ONCE PRN adequate visualization Protocol Spironolactone 100 mg 04/25/25 09:00 Spironolactone 50 Mg Tablet PO QAM SAEID Thiamine HCl 100 mg 04/25/25 09:00 Thiamine Hcl 100 Mg Tablet PO QAM SAEID Radiology Results: ITS Impressions Chest X-Ray 04/22/25 20:19 IMPRESSION: Low lung volumes with bibasilar atelectasis. Abdomen/Pelvis CT 04/22/25 21:10 IMPRESSION: Findings consistent with portal hypertension, as detailed above. Labs Labs: Laboratory Results - last 24 hr 04/24/25 04/25/25 13:10 04:56 WBC 3.2 L RBC 2.80 L Hgb 8.1 L Hct 25.8 L MCV 92.1 MCH 28.9 MCHC 31.4 L RDW 19.5 H Plt Count 73 L MPV 12.1 H % Immature Plt Fraction 5.7 PT 28.6 H INR 2.8 APTT 45.1 H Sodium 136 L Potassium 3.4 Chloride 106 Carbon Dioxide 24 Anion Gap 6 BUN 6 L Creatinine 0.46 L Estim Creat Clear Calc 247 Estimated GFR > 60 Glucose 87 Calcium 8.1 L Total Bilirubin 3.4 H AST 73 H ALT 23 Alkaline Phosphatase 129 H Total Protein 6.1 L Albumin 2.5 L Hepatitis A IgM Ab Negative Hep Bs Antigen Negative Hep B Core IgM Ab Negative Hepatitis C Ab Screen Negative Hospitalist MIPS Advance Care Plan I have confirmed that the patient's Advanced Care Plan is present, code status is documented, or surrogate decision maker is listed in patient medical record.: Yes Medication Reconciliation I have utilized all available resources to obtain, update and review the patients current medications (includes all prescriptions, OTC, herbals, cannabis, and nutritional supplements).: Yes
[2025-04-25] MEDS: SPIRONOLACTONE 50 MG TABLET 100 MG PO (10:17)
[2025-04-25] MEDS: THIAMINE HCL 100 MG TABLET PO (10:18)
[2025-04-25] MEDS: PANTOPRAZOLE SODIUM IV 40 MG VIAL IV PUSH ×2 (10:18→21:21)
[2025-04-25] MEDS: FOLIC ACID 1 MG TABLET PO (10:18)
[2025-04-25] MEDS: FUROSEMIDE INJ 40 MG/4 ML VIAL 20 MG IV PUSH (10:19)
[2025-04-25] MEDS: ALBUMIN HUMAN 25% 25 GM/100 ML 100 ML IVPB ×3 (10:19→21:21)
--- NOTE | 2025-04-25 16:54 | WPDGIPROGNO ---
Progress Note: A&P Assessment and Plan (1) Alcoholic hepatitis: Code(s): K70.10 - Alcoholic hepatitis without ascites Status: Acute Assessment and Plan: noted elevated inr, normal renal function, bili 3.4 will give vitamin k x1 nutrition support (2) Cirrhosis, alcoholic: Code(s): K70.30 - Alcoholic cirrhosis of liver without ascites Status: Acute (3) Portal hypertension: Code(s): K76.6 - Portal hypertension Status: Acute (4) Thrombocytopenia: Code(s): D69.6 - Thrombocytopenia, unspecified Status: Acute Assessment and Plan: from cirrhosis (5) Alcohol dependence: Code(s): F10.20 - Alcohol dependence, uncomplicated Status: Acute Assessment and Plan: thiamine, nutrition support (6) Leg edema: Code(s): R60.0 - Localized edema Status: Acute Assessment and Plan: adjusting diuretics no need of TIPS referral Subjective Date/time seen: 04/25/25 16:54 Interval history: no major changes, still leg edema Review of Systems Review of Systems: All systems reviewed & are unremarkable except as noted in HPI and below Exam Const: Other: chronically ill appearing HENMT: Face/Nose/Sinus: Normal nares present Eyes: General: appearance normal, both eyes and all related structures Neck: Neck: supple Resp: Auscultation: no rhonchi and diminished lung sounds Cardio: Rate: regular rate GI: GI Palp: Yes Soft to palpation and Yes Tenderness to palpation present (GI) (mild ttp) Auscultation: normal bowel sounds Other: ? fluid wave Skin: Other: mild icteric Neuro: Speech: normal speech Motor exam (neuro): 5/5 motor strength present throughout Extrem: General: pedal edema Psych: Affect: Anxious affect present Objective Data Vital Signs Vital Signs: Vital Signs - 24 hr 04/24/25 20:00 04/24/25 20:00 04/24/25 20:35 Temperature 98.3 F Pulse Rate 89 97 Respiratory Rate 18 Blood Pressure 134/66 Pulse Oximetry 99 Oxygen Delivery Room Air 04/25/25 00:00 04/25/25 04:00 04/25/25 05:32 Temperature 98.8 F Pulse Rate 83 80 71 Respiratory Rate 18 Blood Pressure 116/63 Pulse Oximetry 97 Oxygen Delivery 04/25/25 08:00 04/25/25 10:15 04/25/25 12:00 Temperature Pulse Rate 77 110 H Respiratory Rate Blood Pressure Pulse Oximetry Oxygen Delivery Room Air 04/25/25 14:35 Temperature Pulse Rate 92 Respiratory Rate 18 Blood Pressure 130/70 Pulse Oximetry 100 Oxygen Delivery Intake/Output Intake/Output: Intake & Output 04/22/25 04/23/25 04/24/25 04/25/25 23:59 23:59 23:59 23:59 Intake Total 139 184 1973 100 Output Total 200 Balance 100 400 970 100 Meds/Results Medications: Active Medications Generic Name Dose Route Start Last Admin Trade Name Freq PRN Reason Stop Dose Admin Hydrocodone Bitart/Acetaminophen 1 tab 04/24/25 11:47 04/24/25 22:00 Hydrocodone/Acetaminophen (*Crx) 5-325 Mg Tablet PO 1 tab Q4H PRN Administration Pain Rated 7-10 Folic Acid 1 mg 04/25/25 09:00 04/25/25 10:18 Folic Acid 1 Mg Tablet PO 1 mg DAILY SAEID Administration Furosemide 40 mg 04/24/25 09:00 04/25/25 09:58 Furosemide Inj 40 Mg/4 Ml Vial IV PUSH Not Given DAILY SAEID Sodium Chloride 250 mls @ 30 mls/hr 04/25/25 08:57 Normal Saline Iv IV CONT 04/25/25 17:16 .Q8H20M STA Albumin Human 100 mls @ 60 mls/hr 04/25/25 10:00 04/25/25 16:42 Albutein IVPB 04/25/25 23:39 60 mls/hr Q6H SAEID Administration Pantoprazole Sodium 40 mg 04/24/25 21:00 04/25/25 10:18 Pantoprazole Sodium Iv 40 Mg Vial IV PUSH 40 mg Q12HR SAEID Administration Perflutren Lipid Microsphere 0 ml 04/25/25 07:31 Perflutren Lipid Microspheres 1.5 Ml Vial Diluted To 10 Ml Total Volume IV PUSH 04/28/25 07:31 ONCE PRN adequate visualization Protocol Spironolactone 150 mg 04/26/25 09:00 Spironolactone 50 Mg Tablet PO QAM SAEID Thiamine HCl 100 mg 04/25/25 09:00 04/25/25 10:18 Thiamine Hcl 100 Mg Tablet PO 100 mg QAM SAEID Administration Radiology Results: ITS Impressions Chest X-Ray 04/22/25 20:19 IMPRESSION: Low lung volumes with bibasilar atelectasis. Abdomen/Pelvis CT 04/22/25 21:10 IMPRESSION: Findings consistent with portal hypertension, as detailed above. Labs Labs: Laboratory Results - last 24 hr 04/24/25 04/25/25 04/25/25 13:10 04:56 10:32 WBC 3.2 L RBC 2.80 L Hgb 8.1 L Hct 25.8 L MCV 92.1 MCH 28.9 MCHC 31.4 L RDW 19.5 H Plt Count 73 L MPV 12.1 H % Immature Plt Fraction 5.7 PT 28.6 H INR 2.8 APTT 45.1 H Sodium 136 L Potassium 3.4 Chloride 106 Carbon Dioxide 24 Anion Gap 6 BUN 6 L Creatinine 0.46 L Estim Creat Clear Calc 247 Estimated GFR > 60 Glucose 87 Calcium 8.1 L Total Bilirubin 3.4 H AST 73 H ALT 23 Alkaline Phosphatase 129 H Total Protein 6.1 L Albumin 2.5 L Hepatitis A IgM Ab Negative Hep Bs Antigen Negative Hep B Core IgM Ab Negative Hepatitis C Ab Screen Negative Blood Type O Positive
[2025-04-25] MEDS: SODIUM CHLORIDE 0.9% IV 250 ML 30 ML IV CONT (17:13)
[2025-04-25] MEDS: PHYTONADIONE 5 MG TABLET 10 MG PO (17:28)
[2025-04-25] MEDS: HYDROcodone/acetaminophen (*CRX) 5-325 MG TABLET 1 TAB PO ×2 (17:28→21:23)
[2025-04-26] VITALS (12 sets, daily range): BP systolic 95–125; BP diastolic 54–74; PULSE 80–100; RESP 16–18; TEMP 36.1–36.8; O2SAT 94–100
[2025-04-26 05:57] LABS: Hematocrit 24.2 % (42.0-52.0); Hemoglobin 7.7 g/dL (14.0-18.0); Mean Corpuscular HGB Conc 31.8 g/dl (32-36); Mean Corpuscular Hemoglobin 28.8 pg (26-34); Mean Corpuscular Volume 90.6 fl (80-100); Mean Platelet Volume 11.3 fl (7.4-10.4); Platelet Count Result 76 k/mm3 (150-375); Red Blood Count 2.67 M/mm3 (4.6-6.20); Red Cell Distribution Width 19.3 % (11.5-14.5); White Blood Count 3.5 K/mm3 (4.5-10.0)
[2025-04-26 06:07] LABS: INR 2.6; Prothrombin Time 27.4 Seconds (11.1-14.7)
[2025-04-26 06:08] LABS: Partial Thromboplastin Time 45.4 Seconds (22.3-36.8)
[2025-04-26 06:09] LABS: Alanine Aminotransferase 24 U/L (6-50); Albumin Level 3.1 g/dL (3.5-5.1); Alkaline Phosphatase 118 U/L (38-126); Anion Gap 8 mmol/L (4-12); Aspartate Amino Transferase 73 U/L (17-59); Blood Urea Nitrogen 5 mg/dL (9-20); Calcium 8.4 mg/dL (8.4-10.2); Carbon Dioxide 24 mmol/L (22-30); Chloride 105 mmol/L (98-107); Estimated CRCL calculation 253 ml/min; Estimated Glomerular Filt Rate > 60; Glucose 88 mg/dL (65-110); Potassium 3.5 mmol/L (3.4-5.0); Sodium 137 mmol/L (137-145); Total Protein 6.4 g/dL (6.3-8.2)
--- NOTE | 2025-04-26 07:38 | PM.IMPN ---
Progress Note: A&P Assessment and Plan (1) Alcohol dependence: Code(s): F10.20 - Alcohol dependence, uncomplicated Status: Acute (2) Hematemesis: Code(s): K92.0 - Hematemesis Status: Acute (3) Gastric ulcer: Code(s): K25.9 - Gastric ulcer, unspecified as acute or chronic, without hemorrhage or perforation Status: Acute (4) Alcoholic liver failure: Code(s): K70.40 - Alcoholic hepatic failure without coma Status: Acute (5) Cirrhosis of liver: Code(s): K74.60 - Unspecified cirrhosis of liver Status: Acute (6) Abdominal ascites: Code(s): R18.8 - Other ascites Status: Acute (7) Anemia: Qualifiers: Anemia type: unspecified type Qualified Code(s): D64.9 - Anemia, unspecified Code(s): D64.9 - Anemia, unspecified Status: Acute Plan Ascites Na restriction 2g/day Albumin infusion as needed. Received 3 bags today Furosemide 40 mg IV q.d. 0 04/25: Patient had albumin infusion x3 with Lasix 20 mg IV x 3 0 04/25: Patient had 1 unit of FFP due to abnormal PT PTT pending paracentesis due to abnormal PT PTT fluid restriction if Na less than 125mmol/l Pending transfer for TIPS do not use non selective beta-aramis if sbp less than 90,Na<130,cr> 1.5 esvin: hold diuretics,plasma volume expansion with albumin 1g/kg for 24-48 hours last resort: terlipressin plus albumin avoid nephrotoxic drugs NSAIDs and iodine contrast Order hepatitis panel Esophageal varices Protonix 40 mg IV b.i.d. Evidence esophageal varices in CT scan GI following Alcohol withdrawal CIWA score 0 Thiamine and folic acid Last alcohol drink 3 weeks ago Lorazepam 2 mg q.4 hours p.r.n. for seizure Monitor development of withdrawal symptoms Monitor LFTs Abdomen/pelvis CT shows portal hypertension and esophageal versus Consider meloxicam or abdominal pain Hypoglycemic med protocol CBC and CMP including Mag and phos AST ALT Hepatitis panel negative Alcohol level less than 10 DVT prophylaxis SCD ordered due to thrombocytopenia Subjective Date/time seen: 04/26/25 07:38 Interval history: Will order 1 unit of FFP and will repeat PT PTT. Pending paracentesis due to abnormal PT PTT Review of Systems Review of Systems: As reviewed above in HPI Exam Narrative: GENERAL: Unwell appearing, anasarca generalized from the ankles to the scrotum, jaundiced appearance HEAD: [Normocephalic, atraumatic.] EYES: Pupils equal reactive to light, extraocular movements are intact, bilateral jaundice symmetric ENT: Nares clear, no rhinorrhea or epistaxis. Mucous membranes moist. NECK: Supple. CHEST: [Clear to auscultation. No respiratory distress.] HEART: [Regular rate and rhythm]. No murmur heard. [Normal peripheral pulses.] ABDOMEN: Distended abdomen with abdominal striations, tender to palpation diffusely but no signs of peritonitis, [No rigidity or guarding] EXTREMITIES: Normal range of motion. 2+ pitting edema and anasarca up to the scrotum SKIN: Warm, dry, no rash. NEURO: [No focal deficits]. Alert and oriented [x3.] PSYCH: [Normal mood and affect.] Objective Data Vital Signs Vital Signs: Vital Signs - 24 hr 04/25/25 08:00 04/25/25 10:15 04/25/25 12:00 Temperature Pulse Rate 77 110 H Respiratory Rate Blood Pressure Pulse Oximetry Oxygen Delivery Room Air 04/25/25 14:35 04/25/25 16:00 04/25/25 17:20 Temperature 98.5 F Pulse Rate 92 90 88 Respiratory Rate 18 16 Blood Pressure 130/70 145/71 H Pulse Oximetry 100 99 Oxygen Delivery 04/25/25 17:35 04/25/25 18:35 04/25/25 19:35 Temperature 98.7 F 99.1 F 99.0 F Pulse Rate 88 92 83 Respiratory Rate 16 18 18 Blood Pressure 148/72 H 127/60 124/66 Pulse Oximetry 99 99 99 Oxygen Delivery 04/25/25 19:35 04/25/25 20:00 04/25/25 21:00 Temperature 99 F Pulse Rate 83 90 Respiratory Rate 18 Blood Pressure 124/66 Pulse Oximetry 99 Oxygen Delivery Room Air 04/26/25 00:00 04/26/25 04:00 Temperature Pulse Rate 87 83 Respiratory Rate Blood Pressure Pulse Oximetry Oxygen Delivery Intake/Output Intake/Output: Intake & Output 04/23/25 04/24/25 04/25/25 04/26/25 23:59 23:59 23:59 23:59 Intake Total 400 1170 1463 0 Output Total 200 Balance 404 881 3980 0 Meds/Results Medications: Active Medications Generic Name Dose Route Start Last Admin Trade Name Sallie PRN Reason Stop Dose Admin Hydrocodone Bitart/Acetaminophen 1 tab 04/24/25 11:47 04/25/25 21:23 Hydrocodone/Acetaminophen (*Crx) 5-325 Mg Tablet PO 1 tab Q4H PRN Administration Pain Rated 7-10 Folic Acid 1 mg 04/25/25 09:00 04/25/25 10:18 Folic Acid 1 Mg Tablet PO 1 mg DAILY SAEID Administration Furosemide 40 mg 04/24/25 09:00 04/25/25 09:58 Furosemide Inj 40 Mg/4 Ml Vial IV PUSH Not Given DAILY SAEID Pantoprazole Sodium 40 mg 04/24/25 21:00 04/25/25 21:21 Pantoprazole Sodium Iv 40 Mg Vial IV PUSH 40 mg Q12HR SAEID Administration Perflutren Lipid Microsphere 0 ml 04/25/25 07:31 Perflutren Lipid Microspheres 1.5 Ml Vial Diluted To 10 Ml Total Volume IV PUSH 04/28/25 07:31 ONCE PRN adequate visualization Protocol Spironolactone 150 mg 04/26/25 09:00 Spironolactone 50 Mg Tablet PO QAM SAEID Thiamine HCl 100 mg 04/25/25 09:00 04/25/25 10:18 Thiamine Hcl 100 Mg Tablet PO 100 mg QAM SAEID Administration Radiology Results: ITS Impressions Chest X-Ray 04/22/25 20:19 IMPRESSION: Low lung volumes with bibasilar atelectasis. Abdomen/Pelvis CT 04/22/25 21:10 IMPRESSION: Findings consistent with portal hypertension, as detailed above. Labs Labs: Laboratory Results - last 24 hr 04/25/25 04/26/25 10:32 05:40 WBC 3.5 L RBC 2.67 L Hgb 7.7 L Hct 24.2 L MCV 90.6 MCH 28.8 MCHC 31.8 L RDW 19.3 H Plt Count 76 L MPV 11.3 H PT 27.4 H INR 2.6 APTT 45.4 H Sodium 137 Potassium 3.5 Chloride 105 Carbon Dioxide 24 Anion Gap 8 BUN 5 L Creatinine 0.44 L Estim Creat Clear Calc 253 Estimated GFR > 60 Glucose 88 Calcium 8.4 Total Bilirubin 3.0 H AST 73 H ALT 24 Alkaline Phosphatase 118 Total Protein 6.4 Albumin 3.1 L Blood Type O Positive Hospitalist MIPS Advance Care Plan I have confirmed that the patient's Advanced Care Plan is present, code status is documented, or surrogate decision maker is listed in patient medical record.: Yes Medication Reconciliation I have utilized all available resources to obtain, update and review the patients current medications (includes all prescriptions, OTC, herbals, cannabis, and nutritional supplements).: Yes
[2025-04-26] MEDS: FUROSEMIDE INJ 40 MG/4 ML VIAL IV PUSH (09:17)
[2025-04-26] MEDS: PANTOPRAZOLE SODIUM IV 40 MG VIAL IV PUSH ×2 (09:17→22:05)
[2025-04-26] MEDS: THIAMINE HCL 100 MG TABLET PO (09:27)
[2025-04-26] MEDS: HYDROcodone/acetaminophen (*CRX) 5-325 MG TABLET 1 TAB PO ×2 (09:27→22:03)
[2025-04-26] MEDS: FOLIC ACID 1 MG TABLET PO (09:27)
[2025-04-26 10:26] LABS: INR 2.5; Prothrombin Time 26.5 Seconds (11.1-14.7)
[2025-04-26 10:27] LABS: Partial Thromboplastin Time 42.9 Seconds (22.3-36.8)
[2025-04-26] MEDS: SODIUM CHLORIDE 0.9% IV 250 ML 100 ML (12:20)
[2025-04-26] MEDS: SPIRONOLACTONE 50 MG TABLET 150 MG PO (13:27)
--- NOTE | 2025-04-26 15:39 | WPDGIPROGNO ---
Progress Note: A&P Assessment and Plan (1) Alcoholic hepatitis: Code(s): K70.10 - Alcoholic hepatitis without ascites Status: Acute Assessment and Plan: noted elevated inr, normal renal function, bili 3 s/p vitamin k and will give FFP Elevated hepatitis discriminant function 60, no obvious contraindication for steroids- will start prednisolone given severity of alcoholic hepatitis (2) Cirrhosis, alcoholic: Code(s): K70.30 - Alcoholic cirrhosis of liver without ascites Status: Acute (3) Portal hypertension: Code(s): K76.6 - Portal hypertension Status: Acute (4) Thrombocytopenia: Code(s): D69.6 - Thrombocytopenia, unspecified Status: Acute Assessment and Plan: from cirrhosis (5) Alcohol dependence: Code(s): F10.20 - Alcohol dependence, uncomplicated Status: Acute Assessment and Plan: thiamine, nutrition support (6) Leg edema: Code(s): R60.0 - Localized edema Status: Acute Assessment and Plan: adjusting diuretics no need of TIPS referral Subjective Date/time seen: 04/26/25 15:39 Interval history: no changes, still leg edema, he is eating Review of Systems Review of Systems: All systems reviewed & are unremarkable except as noted in HPI and below Exam Const: Other: chronically ill appearing HENMT: Face/Nose/Sinus: Normal nares present Eyes: General: appearance normal, both eyes and all related structures Neck: Neck: supple Resp: Auscultation: no rhonchi and diminished lung sounds Cardio: Rate: regular rate GI: GI Palp: Yes Soft to palpation and Yes Tenderness to palpation present (GI) (mild ttp) Auscultation: normal bowel sounds Other: ? fluid wave Skin: Other: mild icteric Neuro: Speech: normal speech Motor exam (neuro): 5/5 motor strength present throughout Extrem: General: pedal edema Psych: Affect: Anxious affect present Objective Data Vital Signs Vital Signs: Vital Signs - 24 hr 04/25/25 16:00 04/25/25 17:20 04/25/25 17:35 Temperature 98.5 F 98.7 F Pulse Rate 90 88 88 Respiratory Rate 16 16 Blood Pressure 145/71 H 148/72 H Pulse Oximetry 99 99 Oxygen Delivery 04/25/25 18:35 04/25/25 19:35 04/25/25 19:35 Temperature 99.1 F 99.0 F 99 F Pulse Rate 92 83 83 Respiratory Rate 18 18 18 Blood Pressure 127/60 124/66 124/66 Pulse Oximetry 99 99 99 Oxygen Delivery 04/25/25 20:00 04/25/25 21:00 04/26/25 00:00 Temperature Pulse Rate 90 87 Respiratory Rate Blood Pressure Pulse Oximetry Oxygen Delivery Room Air 04/26/25 04:00 04/26/25 08:00 04/26/25 08:00 Temperature Pulse Rate 83 80 Respiratory Rate Blood Pressure Pulse Oximetry Oxygen Delivery Room Air 04/26/25 08:12 04/26/25 12:00 04/26/25 13:20 Temperature 97.4 F L Pulse Rate 80 85 Respiratory Rate 18 Blood Pressure 95/74 L Pulse Oximetry 94 100 Oxygen Delivery Room Air 04/26/25 13:36 04/26/25 14:36 04/26/25 15:05 Temperature 97.4 F L 97.8 F 97 F L Pulse Rate 86 84 84 Respiratory Rate 16 16 16 Blood Pressure 125/62 116/54 L 111/60 Pulse Oximetry 100 100 100 Oxygen Delivery Intake/Output Intake/Output: Intake & Output 04/23/25 04/24/25 04/25/25 04/26/25 23:59 23:59 23:59 23:59 Intake Total 400 1170 1463 455 Output Total 200 Balance 396 027 6475 455 Meds/Results Medications: Active Medications Generic Name Dose Route Start Last Admin Trade Name Freq PRN Reason Stop Dose Admin Hydrocodone Bitart/Acetaminophen 1 tab 04/24/25 11:47 04/26/25 09:27 Hydrocodone/Acetaminophen (*Crx) 5-325 Mg Tablet PO 1 tab Q4H PRN Administration Pain Rated 7-10 Folic Acid 1 mg 04/25/25 09:00 04/26/25 09:27 Folic Acid 1 Mg Tablet PO 1 mg DAILY SAEID Administration Furosemide 40 mg 04/24/25 09:00 04/26/25 09:17 Furosemide Inj 40 Mg/4 Ml Vial IV PUSH 40 mg DAILY SAEID Administration Sodium Chloride 250 mls @ 30 mls/hr 04/26/25 07:42 04/26/25 09:14 Normal Saline Iv IV CONT 04/26/25 16:01 Not Given .Q8H20M STA Pantoprazole Sodium 40 mg 04/24/25 21:00 04/26/25 09:17 Pantoprazole Sodium Iv 40 Mg Vial IV PUSH 40 mg Q12HR SAEID Administration Perflutren Lipid Microsphere 0 ml 04/25/25 07:31 Perflutren Lipid Microspheres 1.5 Ml Vial Diluted To 10 Ml Total Volume IV PUSH 04/28/25 07:31 ONCE PRN adequate visualization Protocol Spironolactone 150 mg 04/26/25 09:00 04/26/25 13:27 Spironolactone 50 Mg Tablet PO 150 mg QAM SAEID Administration Thiamine HCl 100 mg 04/25/25 09:00 04/26/25 09:27 Thiamine Hcl 100 Mg Tablet PO 100 mg QAM SAEID Administration Radiology Results: ITS Impressions Chest X-Ray 04/22/25 20:19 IMPRESSION: Low lung volumes with bibasilar atelectasis. Abdomen/Pelvis CT 04/22/25 21:10 IMPRESSION: Findings consistent with portal hypertension, as detailed above. Labs Labs: Laboratory Results - last 24 hr 04/25/25 04/26/25 04/26/25 10:32 05:40 09:57 WBC 3.5 L RBC 2.67 L Hgb 7.7 L Hct 24.2 L MCV 90.6 MCH 28.8 MCHC 31.8 L RDW 19.3 H Plt Count 76 L MPV 11.3 H PT 27.4 H 26.5 H INR 2.6 2.5 APTT 45.4 H 42.9 H Sodium 137 Potassium 3.5 Chloride 105 Carbon Dioxide 24 Anion Gap 8 BUN 5 L Creatinine 0.44 L Estim Creat Clear Calc 253 Estimated GFR > 60 Glucose 88 Calcium 8.4 Total Bilirubin 3.0 H AST 73 H ALT 24 Alkaline Phosphatase 118 Total Protein 6.4 Albumin 3.1 L Blood Type O Positive
[2025-04-26] MEDS: prednisoLONE ORAL SOLN 30 MG/10 ML SOLUTION 40 MG PO (16:04)
[2025-04-27] VITALS (10 sets, daily range): BP systolic 117–130; BP diastolic 58–65; PULSE 75–89; RESP 14–18; TEMP 36.4–36.9; O2SAT 98–100
[2025-04-27 05:34] LABS: Hematocrit 24.1 % (42.0-52.0); Hemoglobin 7.6 g/dL (14.0-18.0); Mean Corpuscular HGB Conc 31.5 g/dl (32-36); Mean Corpuscular Hemoglobin 28.5 pg (26-34); Mean Corpuscular Volume 90.3 fl (80-100); Mean Platelet Volume 12.9 fl (7.4-10.4); Red Blood Count 2.67 M/mm3 (4.6-6.20); White Blood Count 2.7 K/mm3 (4.5-10.0)
[2025-04-27 05:35] LABS: Platelet Count Result 68 k/mm3 (150-375)
[2025-04-27 05:55] LABS: Alanine Aminotransferase 22 U/L (6-50); Albumin Level 2.8 g/dL (3.5-5.1); Alkaline Phosphatase 112 U/L (38-126); Anion Gap 4 mmol/L (4-12); Aspartate Amino Transferase 59 U/L (17-59); Bilirubin,Total 2.7 mg/dL (0.2-1.3); Blood Urea Nitrogen 6 mg/dL (9-20); Calcium 8.3 mg/dL (8.4-10.2); Carbon Dioxide 24 mmol/L (22-30); Chloride 109 mmol/L (98-107); Estimated CRCL calculation 245 ml/min; Estimated Glomerular Filt Rate > 60; Glucose 125 mg/dL (65-110); Sodium 137 mmol/L (137-145); Total Protein 6.3 g/dL (6.3-8.2)
--- NOTE | 2025-04-27 09:22 | WPDGIPROGNO ---
Progress Note: A&P Assessment and Plan (1) Alcoholic hepatitis: Code(s): K70.10 - Alcoholic hepatitis without ascites Status: Acute Assessment and Plan: noted elevated inr, normal renal function, bili 4- Elevated hepatitis discriminant function 60 on admission, no obvious contraindication for steroids- started prednisolone given severity of alcoholic hepatitis s/p vitamin k and FFP bili has been coming down nutrition support thiamine (2) Cirrhosis, alcoholic: Code(s): K70.30 - Alcoholic cirrhosis of liver without ascites Status: Acute (3) Portal hypertension: Code(s): K76.6 - Portal hypertension Status: Acute Assessment and Plan: will attempt paracentesis when INR is better on diuretics and low salt diet now (4) Thrombocytopenia: Code(s): D69.6 - Thrombocytopenia, unspecified Status: Acute Assessment and Plan: from cirrhosis (5) Alcohol dependence: Code(s): F10.20 - Alcohol dependence, uncomplicated Status: Acute Assessment and Plan: thiamine, nutrition support (6) Leg edema: Code(s): R60.0 - Localized edema Status: Acute Assessment and Plan: adjusting diuretics no need of TIPS referral Subjective Date/time seen: 04/27/25 09:22 Interval history: no changes, still leg edema Review of Systems Review of Systems: All systems reviewed & are unremarkable except as noted in HPI and below Exam Const: Other: chronically ill appearing HENMT: Face/Nose/Sinus: Normal nares present Eyes: General: appearance normal, both eyes and all related structures Neck: Neck: supple Resp: Auscultation: no rhonchi and diminished lung sounds Cardio: Rate: regular rate GI: GI Palp: Yes Soft to palpation and Yes Tenderness to palpation present (GI) (mild ttp) Auscultation: normal bowel sounds Other: ? fluid wave Skin: Other: mild icteric Neuro: Speech: normal speech Motor exam (neuro): 5/5 motor strength present throughout Extrem: General: pedal edema Psych: Affect: Anxious affect present Objective Data Vital Signs Vital Signs: Vital Signs - 24 hr 04/26/25 12:00 04/26/25 13:20 04/26/25 13:36 Temperature 97.4 F L 97.4 F L Pulse Rate 80 85 86 Respiratory Rate 18 16 Blood Pressure 95/74 L 125/62 Pulse Oximetry 100 100 Oxygen Delivery 04/26/25 14:36 04/26/25 15:05 04/26/25 16:00 Temperature 97.8 F 97 F L Pulse Rate 84 84 100 Respiratory Rate 16 16 Blood Pressure 116/54 L 111/60 Pulse Oximetry 100 100 Oxygen Delivery 04/26/25 20:00 04/26/25 20:00 04/26/25 21:05 Temperature 98.3 F Pulse Rate 85 85 84 Respiratory Rate 18 18 Blood Pressure 120/63 Pulse Oximetry 99 99 Oxygen Delivery Room Air 04/27/25 00:00 04/27/25 04:00 04/27/25 06:48 Temperature 97.9 F Pulse Rate 84 75 87 Respiratory Rate 18 Blood Pressure 129/65 Pulse Oximetry 100 Oxygen Delivery Intake/Output Intake/Output: Intake & Output 04/24/25 04/25/25 04/26/25 04/27/25 23:59 23:59 23:59 23:59 Intake Total 1170 1463 1345 Output Total 200 Balance 970 1463 1345 Meds/Results Medications: Active Medications Generic Name Dose Route Start Last Admin Trade Name Freq PRN Reason Stop Dose Admin Hydrocodone Bitart/Acetaminophen 1 tab 04/24/25 11:47 04/26/25 22:03 Hydrocodone/Acetaminophen (*Crx) 5-325 Mg Tablet PO 1 tab Q4H PRN Administration Pain Rated 7-10 Folic Acid 1 mg 04/25/25 09:00 04/26/25 09:27 Folic Acid 1 Mg Tablet PO 1 mg DAILY SAEID Administration Furosemide 40 mg 04/24/25 09:00 04/26/25 09:17 Furosemide Inj 40 Mg/4 Ml Vial IV PUSH 40 mg DAILY SAEID Administration Pantoprazole Sodium 40 mg 04/24/25 21:00 04/26/25 22:05 Pantoprazole Sodium Iv 40 Mg Vial IV PUSH 40 mg Q12HR SAEID Administration Perflutren Lipid Microsphere 0 ml 04/25/25 07:31 Perflutren Lipid Microspheres 1.5 Ml Vial Diluted To 10 Ml Total Volume IV PUSH 04/28/25 07:31 ONCE PRN adequate visualization Protocol Prednisone 40 mg 04/27/25 08:00 Prednisone 20 Mg Tablet PO DAILY@0800 SAEID Spironolactone 150 mg 04/26/25 09:00 04/26/25 13:27 Spironolactone 50 Mg Tablet PO 150 mg QAM SAEID Administration Thiamine HCl 100 mg 04/25/25 09:00 04/26/25 09:27 Thiamine Hcl 100 Mg Tablet PO 100 mg QAM SAEID Administration Radiology Results: ITS Impressions Chest X-Ray 04/22/25 20:19 IMPRESSION: Low lung volumes with bibasilar atelectasis. Abdomen/Pelvis CT 04/22/25 21:10 IMPRESSION: Findings consistent with portal hypertension, as detailed above. Labs Labs: Laboratory Results - last 24 hr 04/25/25 04/26/25 04/27/25 10:32 09:57 04:58 WBC 2.7 L RBC 2.67 L Hgb 7.6 L Hct 24.1 L MCV 90.3 MCH 28.5 MCHC 31.5 L RDW 19.0 H Plt Count 68 L MPV 12.9 H % Immature Plt Fraction 7.0 PT 26.5 H INR 2.5 APTT 42.9 H Sodium 137 Potassium 4.0 Chloride 109 H Carbon Dioxide 24 Anion Gap 4 BUN 6 L Creatinine 0.46 L Estim Creat Clear Calc 245 Estimated GFR > 60 Glucose 125 H Calcium 8.3 L Total Bilirubin 2.7 H AST 59 ALT 22 Alkaline Phosphatase 112 Total Protein 6.3 Albumin 2.8 L Blood Type O Positive
[2025-04-27] MEDS: FOLIC ACID 1 MG TABLET PO (09:38)
[2025-04-27] MEDS: THIAMINE HCL 100 MG TABLET PO (09:38)
[2025-04-27] MEDS: FUROSEMIDE INJ 40 MG/4 ML VIAL IV PUSH (09:39)
[2025-04-27] MEDS: PANTOPRAZOLE SODIUM IV 40 MG VIAL IV PUSH ×2 (09:39→20:36)
[2025-04-27] MEDS: predniSONE 20 MG TABLET 40 MG PO (09:39)
[2025-04-27] MEDS: SPIRONOLACTONE 50 MG TABLET 150 MG PO (09:46)
--- NOTE | 2025-04-27 14:59 | PM.IMPN ---
Progress Note: A&P Assessment and Plan (1) Alcohol dependence: Code(s): F10.20 - Alcohol dependence, uncomplicated Status: Acute (2) Hematemesis: Code(s): K92.0 - Hematemesis Status: Acute (3) Gastric ulcer: Code(s): K25.9 - Gastric ulcer, unspecified as acute or chronic, without hemorrhage or perforation Status: Acute (4) Alcoholic liver failure: Code(s): K70.40 - Alcoholic hepatic failure without coma Status: Acute (5) Cirrhosis of liver: Code(s): K74.60 - Unspecified cirrhosis of liver Status: Acute (6) Abdominal ascites: Code(s): R18.8 - Other ascites Status: Acute (7) Anemia: Qualifiers: Anemia type: unspecified type Qualified Code(s): D64.9 - Anemia, unspecified Code(s): D64.9 - Anemia, unspecified Status: Acute Plan Ascites Na restriction 2g/day Albumin infusion as needed. Received 3 bags on 0 04/25 Furosemide 40 mg IV q.d. 0 04/25: Patient had albumin infusion x3 with Lasix 20 mg IV x 3 0 04/25: Patient had 1 unit of FFP due to abnormal PT PTT pending paracentesis due to abnormal PT PTT fluid restriction if Na less than 125mmol/l Pending transfer for TIPS do not use non selective beta-aramis if sbp less than 90,Na<130,cr> 1.5 esvin: hold diuretics,plasma volume expansion with albumin 1g/kg for 24-48 hours last resort: terlipressin plus albumin avoid nephrotoxic drugs NSAIDs and iodine contrast Order hepatitis panel 0 04/27: Albumin 3 bags today and will be given Lasix 20 mg IV x 3 each bag of albumin. Maddrey's Discriminant Score greater than 60 and started on prednisone 40 mg p.o. q.d. Esophageal varices Protonix 40 mg IV b.i.d. Evidence esophageal varices in CT scan GI following Alcohol withdrawal CIWA score 0 Thiamine and folic acid Last alcohol drink 3 weeks ago Lorazepam 2 mg q.4 hours p.r.n. for seizure Monitor development of withdrawal symptoms Monitor LFTs Abdomen/pelvis CT shows portal hypertension and esophageal versus Consider meloxicam or abdominal pain Hypoglycemic med protocol CBC and CMP including Mag and phos AST ALT Hepatitis panel negative Alcohol level less than 10 DVT prophylaxis SCD ordered due to thrombocytopenia Subjective Date/time seen: 04/27/25 14:59 Interval history: Patient will undergo possible paracentesis tomorrow. Patient unfortunately had a breakfast today so no paracentesis today. Patient will be given albumin 3 bags today and will be given Lasix 20 mg IV x 3. Review of Systems Review of Systems: As reviewed above in HPI Exam Narrative: GENERAL: Unwell appearing, anasarca generalized from the ankles to the scrotum, jaundiced appearance HEAD: [Normocephalic, atraumatic.] EYES: Pupils equal reactive to light, extraocular movements are intact, bilateral jaundice symmetric ENT: Nares clear, no rhinorrhea or epistaxis. Mucous membranes moist. NECK: Supple. CHEST: [Clear to auscultation. No respiratory distress.] HEART: [Regular rate and rhythm]. No murmur heard. [Normal peripheral pulses.] ABDOMEN: Distended abdomen with abdominal striations, tender to palpation diffusely but no signs of peritonitis, [No rigidity or guarding] EXTREMITIES: Normal range of motion. 2+ pitting edema and anasarca up to the scrotum SKIN: Warm, dry, no rash. NEURO: [No focal deficits]. Alert and oriented [x3.] PSYCH: [Normal mood and affect.] Objective Data Vital Signs Vital Signs: Vital Signs - 24 hr 04/26/25 15:05 04/26/25 16:00 04/26/25 20:00 Temperature 97 F L Pulse Rate 84 100 85 Respiratory Rate 16 18 Blood Pressure 111/60 Pulse Oximetry 100 99 Oxygen Delivery Room Air 04/26/25 20:00 04/26/25 21:05 04/27/25 00:00 Temperature 98.3 F Pulse Rate 85 84 84 Respiratory Rate 18 Blood Pressure 120/63 Pulse Oximetry 99 Oxygen Delivery 04/27/25 04:00 04/27/25 06:48 04/27/25 08:00 Temperature 97.9 F Pulse Rate 75 87 Respiratory Rate 18 Blood Pressure 129/65 Pulse Oximetry 100 Oxygen Delivery Room Air 04/27/25 08:00 04/27/25 13:59 Temperature 97.6 F Pulse Rate 76 85 Respiratory Rate 14 Blood Pressure 117/59 L Pulse Oximetry 99 Oxygen Delivery Intake/Output Intake/Output: Intake & Output 06/19/25 04/25/25 04/26/25 04/27/25 23:59 23:59 23:59 23:59 Intake Total 1170 1463 1345 480 Output Total 200 Balance 970 1463 1345 480 Meds/Results Medications: Active Medications Generic Name Dose Route Start Last Admin Trade Name Freq PRN Reason Stop Dose Admin Hydrocodone Bitart/Acetaminophen 1 tab 04/24/25 11:47 04/26/25 22:03 Hydrocodone/Acetaminophen (*Crx) 5-325 Mg Tablet PO 1 tab Q4H PRN Administration Pain Rated 7-10 Folic Acid 1 mg 04/25/25 09:00 04/27/25 09:38 Folic Acid 1 Mg Tablet PO 1 mg DAILY SAEID Administration Furosemide 40 mg 04/24/25 09:00 04/27/25 09:39 Furosemide Inj 40 Mg/4 Ml Vial IV PUSH 40 mg DAILY SAEID Administration Albumin Human 50 mls @ 50 mls/hr 04/27/25 18:00 Albutein IVPB 04/28/25 06:59 Q6HR SAEID Pantoprazole Sodium 40 mg 04/24/25 21:00 04/27/25 09:39 Pantoprazole Sodium Iv 40 Mg Vial IV PUSH 40 mg Q12HR SAEID Administration Perflutren Lipid Microsphere 0 ml 04/25/25 07:31 Perflutren Lipid Microspheres 1.5 Ml Vial Diluted To 10 Ml Total Volume IV PUSH 04/28/25 07:31 ONCE PRN adequate visualization Protocol Prednisone 40 mg 04/27/25 08:00 04/27/25 09:39 Prednisone 20 Mg Tablet PO 40 mg DAILY@0800 SAEID Administration Spironolactone 150 mg 04/26/25 09:00 04/27/25 09:46 Spironolactone 50 Mg Tablet PO 150 mg QAM SAEID Administration Thiamine HCl 100 mg 04/25/25 09:00 04/27/25 09:38 Thiamine Hcl 100 Mg Tablet PO 100 mg QAM SAEID Administration Radiology Results: ITS Impressions Chest X-Ray 04/22/25 20:19 IMPRESSION: Low lung volumes with bibasilar atelectasis. Abdomen/Pelvis CT 04/22/25 21:10 IMPRESSION: Findings consistent with portal hypertension, as detailed above. Labs Labs: Laboratory Results - last 24 hr 04/27/25 04:58 WBC 2.7 L RBC 2.67 L Hgb 7.6 L Hct 24.1 L MCV 90.3 MCH 28.5 MCHC 31.5 L RDW 19.0 H Plt Count 68 L MPV 12.9 H % Immature Plt Fraction 7.0 Sodium 137 Potassium 4.0 Chloride 109 H Carbon Dioxide 24 Anion Gap 4 BUN 6 L Creatinine 0.46 L Estim Creat Clear Calc 245 Estimated GFR > 60 Glucose 125 H Calcium 8.3 L Total Bilirubin 2.7 H AST 59 ALT 22 Alkaline Phosphatase 112 Total Protein 6.3 Albumin 2.8 L Hospitalist MIPS Advance Care Plan I have confirmed that the patient's Advanced Care Plan is present, code status is documented, or surrogate decision maker is listed in patient medical record.: Yes Medication Reconciliation I have utilized all available resources to obtain, update and review the patients current medications (includes all prescriptions, OTC, herbals, cannabis, and nutritional supplements).: Yes
[2025-04-27] MEDS: ALBUMIN HUMAN 25% 12.5 GM/50ML 50 ML IVPB (17:46)
[2025-04-27] MEDS: FUROSEMIDE INJ 40 MG/4 ML VIAL 20 MG IV PUSH (18:35)
[2025-04-28] VITALS (9 sets, daily range): BP systolic 104–128; BP diastolic 37–61; PULSE 72–92; RESP 18; TEMP 36.5–36.7; O2SAT 100
[2025-04-28 05:17] LABS: Hematocrit 22.6 % (42.0-52.0); Hemoglobin 7.1 g/dL (14.0-18.0); Immature Platelet Fraction Pct 5.6 % (0.9-11.2); Mean Corpuscular HGB Conc 31.4 g/dl (32-36); Mean Corpuscular Hemoglobin 28.2 pg (26-34); Mean Corpuscular Volume 89.7 fl (80-100); Mean Platelet Volume 11.9 fl (7.4-10.4); Platelet Count Result 74 k/mm3 (150-375); Red Blood Count 2.52 M/mm3 (4.6-6.20); Red Cell Distribution Width 19.1 % (11.5-14.5); White Blood Count 3.5 K/mm3 (4.5-10.0)
[2025-04-28 05:26] LABS: INR 2.5; Partial Thromboplastin Time 39.9 Seconds (22.3-36.8); Prothrombin Time 26.5 Seconds (11.1-14.7)
[2025-04-28 05:37] LABS: Alanine Aminotransferase 26 U/L (6-50); Albumin Level 2.9 g/dL (3.5-5.1); Alkaline Phosphatase 137 U/L (38-126); Anion Gap 7 mmol/L (4-12); Aspartate Amino Transferase 62 U/L (17-59); Bilirubin,Total 2.4 mg/dL (0.2-1.3); Blood Urea Nitrogen 6 mg/dL (9-20); Calcium 8.7 mg/dL (8.4-10.2); Carbon Dioxide 24 mmol/L (22-30); Chloride 111 mmol/L (98-107); Estimated CRCL calculation 254 ml/min; Estimated Glomerular Filt Rate > 60; Glucose 119 mg/dL (65-110); Potassium 3.7 mmol/L (3.4-5.0); Sodium 142 mmol/L (137-145); Total Protein 6.4 g/dL (6.3-8.2)
[2025-04-28] MEDS: SPIRONOLACTONE 50 MG TABLET 150 MG PO (09:52)
[2025-04-28] MEDS: predniSONE 20 MG TABLET 40 MG PO (09:52)
[2025-04-28] MEDS: FOLIC ACID 1 MG TABLET PO (09:52)
[2025-04-28] MEDS: FUROSEMIDE INJ 40 MG/4 ML VIAL IV PUSH (09:52)
[2025-04-28] MEDS: PANTOPRAZOLE SODIUM IV 40 MG VIAL IV PUSH (09:52)
[2025-04-28] MEDS: THIAMINE HCL 100 MG TABLET PO (09:52)
[2025-04-28] MEDS: cefTRIAXone 2 GM/NS 100 ML 2 GM/100 ML BAG IVPB (09:56)
[2025-04-28] MEDS: ALBUMIN HUMAN 25% 25 GM/100 ML 100 ML IVPB ×3 (11:19→23:53)
--- NOTE | 2025-04-28 12:17 | PM.IMPN ---
Progress Note: A&P Assessment and Plan (1) Alcohol dependence: Code(s): F10.20 - Alcohol dependence, uncomplicated Status: Acute (2) Hematemesis: Code(s): K92.0 - Hematemesis Status: Acute (3) Gastric ulcer: Code(s): K25.9 - Gastric ulcer, unspecified as acute or chronic, without hemorrhage or perforation Status: Acute (4) Alcoholic liver failure: Code(s): K70.40 - Alcoholic hepatic failure without coma Status: Acute (5) Cirrhosis of liver: Code(s): K74.60 - Unspecified cirrhosis of liver Status: Acute (6) Abdominal ascites: Code(s): R18.8 - Other ascites Status: Acute (7) Anemia: Qualifiers: Anemia type: unspecified type Qualified Code(s): D64.9 - Anemia, unspecified Code(s): D64.9 - Anemia, unspecified Status: Acute Plan Ascites Na restriction 2g/day Albumin infusion as needed. Received 3 bags on 0 04/25 Furosemide 40 mg IV q.d. 0 04/25: Patient had albumin infusion x3 with Lasix 20 mg IV x 3 0 04/25: Patient had 1 unit of FFP due to abnormal PT PTT pending paracentesis due to abnormal PT PTT fluid restriction if Na less than 125mmol/l Pending transfer for TIPS do not use non selective beta-aramis if sbp less than 90,Na<130,cr> 1.5 esvin: hold diuretics,plasma volume expansion with albumin 1g/kg for 24-48 hours last resort: terlipressin plus albumin avoid nephrotoxic drugs NSAIDs and iodine contrast Order hepatitis panel 0 04/27: Albumin 3 bags today and will be given Lasix 20 mg IV x 3 each bag of albumin. Maddrey's Discriminant Score greater than 60 and started on prednisone 40 mg p.o. q.d. paracentesis getting delayed due to abnormal PT PTT Started on ceftriaxone 2 gFor presumable SBP Discussed with radiology and discussed risk vs benefit since patient is high risk of bleeding due to low platelet for thoracentesis. Advised to give Vitamin K and FFP tomorrow if needed. Will attempt thoracentesis tomorrow Esophageal varices Protonix 40 mg IV b.i.d. Evidence esophageal varices in CT scan GI following Alcohol withdrawal CIWA score 0 Thiamine and folic acid Last alcohol drink 3 weeks ago Lorazepam 2 mg q.4 hours p.r.n. for seizure Monitor development of withdrawal symptoms Monitor LFTs Abdomen/pelvis CT shows portal hypertension and esophageal versus Consider meloxicam or abdominal pain Hypoglycemic med protocol CBC and CMP including Mag and phos AST ALT Hepatitis panel negative Alcohol level less than 10 DVT prophylaxis SCD ordered due to thrombocytopenia Subjective Date/time seen: 04/28/25 12:17 Interval history: Patient unable to go paracentesis due to elevated PT PTT. Patient will be given albumin 3 bags today and will be given Lasix 20 mg IV x 3. yesterday at albumin infusion has been stopped due to chest tightness but patient reports that suggest throat irritation so we will continue albumin infusion today. Patient will be started on therapeutic does of ceftriaxone for presumable SBP. Pending transfer.Discussed with radiology and discussed with risk vs benefit since patient is high risk of bleeding due to low platelet for thoracentesis. Advised to give Vitamin K and FFP tomorrow if needed. Will attempt thoracentesis tomorrow. Review of Systems Review of Systems: As reviewed above in HPI Exam Narrative: GENERAL: Unwell appearing, anasarca generalized from the ankles to the scrotum, jaundiced appearance HEAD: [Normocephalic, atraumatic.] EYES: Pupils equal reactive to light, extraocular movements are intact, bilateral jaundice symmetric ENT: Nares clear, no rhinorrhea or epistaxis. Mucous membranes moist. NECK: Supple. CHEST: [Clear to auscultation. No respiratory distress.] HEART: [Regular rate and rhythm]. No murmur heard. [Normal peripheral pulses.] ABDOMEN: Distended abdomen with abdominal striations, tender to palpation diffusely but no signs of peritonitis, [No rigidity or guarding] EXTREMITIES: Normal range of motion. 2+ pitting edema and anasarca up to the scrotum SKIN: Warm, dry, no rash. NEURO: [No focal deficits]. Alert and oriented [x3.] PSYCH: [Normal mood and affect.] Objective Data Vital Signs Vital Signs: Vital Signs - 24 hr 04/27/25 13:59 04/27/25 16:00 04/27/25 18:00 Temperature 97.6 F Pulse Rate 85 87 82 Respiratory Rate 14 16 Blood Pressure 117/59 L 117/58 L Pulse Oximetry 99 98 04/27/25 20:00 04/27/25 22:00 04/28/25 00:00 Temperature 98.5 F Pulse Rate 82 79 75 Respiratory Rate 18 Blood Pressure 130/61 Pulse Oximetry 100 04/28/25 04:00 04/28/25 06:00 Temperature 98.1 F Pulse Rate 75 72 Respiratory Rate 18 Blood Pressure 104/37 L Pulse Oximetry 100 Intake/Output Intake/Output: Intake & Output 04/25/25 04/26/25 04/27/25 04/28/25 23:59 23:59 23:59 23:59 Intake Total 1463 1345 1157 Balance 1463 1345 1157 Meds/Results Medications: Active Medications Generic Name Dose Route Start Last Admin Trade Name Freq PRN Reason Stop Dose Admin Hydrocodone Bitart/Acetaminophen 1 tab 04/24/25 11:47 04/26/25 22:03 Hydrocodone/Acetaminophen (*Crx) 5-325 Mg Tablet PO 1 tab Q4H PRN Administration Pain Rated 7-10 Folic Acid 1 mg 04/25/25 09:00 04/28/25 09:52 Folic Acid 1 Mg Tablet PO 1 mg DAILY SAEID Administration Furosemide 40 mg 04/24/25 09:00 04/28/25 09:52 Furosemide Inj 40 Mg/4 Ml Vial IV PUSH 40 mg DAILY SAEID Administration Ceftriaxone Sodium 2 gm in 100 mls @ 200 mls/hr 04/28/25 10:00 04/28/25 09:56 Rocephin 2 Gm/Ns 100 Ml IVPB 200 mls/hr DAILY SAEID Administration Albumin Human 100 mls @ 60 mls/hr 04/28/25 10:40 04/28/25 11:19 Albutein IVPB 04/28/25 19:39 60 mls/hr Q6HR SAEID Administration Pantoprazole Sodium 40 mg 04/24/25 21:00 04/28/25 09:52 Pantoprazole Sodium Iv 40 Mg Vial IV PUSH 40 mg Q12HR SAEID Administration Prednisone 40 mg 04/27/25 08:00 04/28/25 09:52 Prednisone 20 Mg Tablet PO 40 mg DAILY@0800 SAEID Administration Spironolactone 150 mg 04/26/25 09:00 04/28/25 09:52 Spironolactone 50 Mg Tablet PO 150 mg QAM SAEID Administration Thiamine HCl 100 mg 04/25/25 09:00 04/28/25 09:52 Thiamine Hcl 100 Mg Tablet PO 100 mg QAM SAEID Administration Radiology Results: ITS Impressions Chest X-Ray 04/22/25 20:19 IMPRESSION: Low lung volumes with bibasilar atelectasis. Abdomen/Pelvis CT 04/22/25 21:10 IMPRESSION: Findings consistent with portal hypertension, as detailed above. Labs Labs: Laboratory Results - last 24 hr 04/28/25 04:47 WBC 3.5 L RBC 2.52 L Hgb 7.1 L Hct 22.6 L MCV 89.7 MCH 28.2 MCHC 31.4 L RDW 19.1 H Plt Count 74 L MPV 11.9 H % Immature Plt Fraction 5.6 PT 26.5 H INR 2.5 APTT 39.9 H Sodium 142 Potassium 3.7 Chloride 111 H Carbon Dioxide 24 Anion Gap 7 BUN 6 L Creatinine 0.44 L Estim Creat Clear Calc 254 Estimated GFR > 60 Glucose 119 H Calcium 8.7 Total Bilirubin 2.4 H AST 62 H ALT 26 Alkaline Phosphatase 137 H Total Protein 6.4 Albumin 2.9 L Hospitalist [facility] Advance Care Plan I have confirmed that the patient's Advanced Care Plan is present, code status is documented, or surrogate decision maker is listed in patient medical record.: Yes Medication Reconciliation I have utilized all available resources to obtain, update and review the patients current medications (includes all prescriptions, OTC, herbals, cannabis, and nutritional supplements).: Yes
--- NOTE | 2025-04-28 12:45 | WPDGIPROGNO ---
Progress Note: A&P Assessment and Plan (1) Alcoholic hepatitis: Code(s): K70.10 - Alcoholic hepatitis without ascites Status: Acute Assessment and Plan: on admission with Elevated hepatitis discriminant function 60 but since bili has been coming down no obvious contraindication for steroids and was started on prednisolone given severity of alcoholic hepatitis s/p vitamin k and FFP nutrition support thiamine (2) Cirrhosis, alcoholic: Code(s): K70.30 - Alcoholic cirrhosis of liver without ascites Status: Acute (3) Portal hypertension: Code(s): K76.6 - Portal hypertension Status: Acute Assessment and Plan: ultrasound is pending and if noted ascites then will attempt paracentesis to study fluid, no abdominal pain on diuretics and low salt diet (4) Thrombocytopenia: Code(s): D69.6 - Thrombocytopenia, unspecified Status: Acute Assessment and Plan: from cirrhosis (5) Alcohol dependence: Code(s): F10.20 - Alcohol dependence, uncomplicated Status: Acute Assessment and Plan: thiamine, nutrition support (6) Leg edema: Code(s): R60.0 - Localized edema Status: Acute Assessment and Plan: on aldactone and lasix normal renal function with good diuresis s/p iv albumin Subjective Date/time seen: 04/28/25 12:45 Interval history: he is reporting good diuresis with the use of water pills and can tell that leg edema has improved some but still 2 + pitting Review of Systems Review of Systems: All systems reviewed & are unremarkable except as noted in HPI and below Exam Const: Other: chronically ill appearing HENMT: Face/Nose/Sinus: Normal nares present Eyes: General: appearance normal, both eyes and all related structures Neck: Neck: supple Resp: Auscultation: no rhonchi and diminished lung sounds Cardio: Rate: regular rate GI: GI Palp: Yes Soft to palpation and Yes Tenderness to palpation present (GI) (mild ttp) Auscultation: normal bowel sounds Other: ? fluid wave Skin: Other: mild icteric Neuro: Speech: normal speech Motor exam (neuro): 5/5 motor strength present throughout Extrem: General: pedal edema Psych: Affect: Anxious affect present Objective Data Vital Signs Vital Signs: Vital Signs - 24 hr 04/27/25 13:59 04/27/25 16:00 04/27/25 18:00 Temperature 97.6 F Pulse Rate 85 87 82 Respiratory Rate 14 16 Blood Pressure 117/59 L 117/58 L Pulse Oximetry 99 98 04/27/25 20:00 04/27/25 22:00 04/28/25 00:00 Temperature 98.5 F Pulse Rate 82 79 75 Respiratory Rate 18 Blood Pressure 130/61 Pulse Oximetry 100 04/28/25 04:00 04/28/25 06:00 Temperature 98.1 F Pulse Rate 75 72 Respiratory Rate 18 Blood Pressure 104/37 L Pulse Oximetry 100 Intake/Output Intake/Output: Intake & Output 04/25/25 04/26/25 04/27/25 04/28/25 23:59 23:59 23:59 23:59 Intake Total 1463 1345 1157 Balance 1463 1345 1157 Meds/Results Medications: Active Medications Generic Name Dose Route Start Last Admin Trade Name Freq PRN Reason Stop Dose Admin Hydrocodone Bitart/Acetaminophen 1 tab 04/24/25 11:47 04/26/25 22:03 Hydrocodone/Acetaminophen (*Crx) 5-325 Mg Tablet PO 1 tab Q4H PRN Administration Pain Rated 7-10 Folic Acid 1 mg 04/25/25 09:00 04/28/25 09:52 Folic Acid 1 Mg Tablet PO 1 mg DAILY SAEID Administration Furosemide 40 mg 04/24/25 09:00 04/28/25 09:52 Furosemide Inj 40 Mg/4 Ml Vial IV PUSH 40 mg DAILY SAEID Administration Ceftriaxone Sodium 2 gm in 100 mls @ 200 mls/hr 04/28/25 10:00 04/28/25 09:56 Rocephin 2 Gm/Ns 100 Ml IVPB 200 mls/hr DAILY SAEID Administration Albumin Human 100 mls @ 60 mls/hr 04/28/25 10:40 04/28/25 11:19 Albutein IVPB 04/28/25 19:39 60 mls/hr Q6HR SAEID Administration Pantoprazole Sodium 40 mg 04/24/25 21:00 04/28/25 09:52 Pantoprazole Sodium Iv 40 Mg Vial IV PUSH 40 mg Q12HR SAEID Administration Prednisone 40 mg 04/27/25 08:00 04/28/25 09:52 Prednisone 20 Mg Tablet PO 40 mg DAILY@0800 SAEID Administration Spironolactone 150 mg 04/26/25 09:00 04/28/25 09:52 Spironolactone 50 Mg Tablet PO 150 mg QAM [facility] Administration Thiamine HCl 100 mg 04/25/25 09:00 04/28/25 09:52 Thiamine Hcl 100 Mg Tablet PO 100 mg QAM [facility] Administration Radiology Results: ITS Impressions Chest X-Ray 04/22/25 20:19 IMPRESSION: Low lung volumes with bibasilar atelectasis. Abdomen/Pelvis CT 04/22/25 21:10 IMPRESSION: Findings consistent with portal hypertension, as detailed above. Labs Labs: Laboratory Results - last 24 hr 04/28/25 04:47 WBC 3.5 L RBC 2.52 L Hgb 7.1 L Hct 22.6 L MCV 89.7 MCH 28.2 MCHC 31.4 L RDW 19.1 H Plt Count 74 L MPV 11.9 H % Immature Plt Fraction 5.6 PT 26.5 H INR 2.5 APTT 39.9 H Sodium 142 Potassium 3.7 Chloride 111 H Carbon Dioxide 24 Anion Gap 7 BUN 6 L Creatinine 0.44 L Estim Creat Clear Calc 254 Estimated GFR > 60 Glucose 119 H Calcium 8.7 Total Bilirubin 2.4 H AST 62 H ALT 26 Alkaline Phosphatase 137 H Total Protein 6.4 Albumin 2.9 L
[2025-04-28] MEDS: PHYTONADIONE INJ 10 MG/ML AMP SUB-Q (12:55)
[2025-04-28] MEDS: FUROSEMIDE INJ 40 MG/4 ML VIAL 20 MG IV PUSH ×2 (17:37→23:46)
[2025-04-29] VITALS (9 sets, daily range): BP systolic 111–118; BP diastolic 55–63; PULSE 72–88; RESP 16–18; TEMP 36.6–36.7; O2SAT 99–100
[2025-04-29 05:31] LABS: Hematocrit 23.2 % (42.0-52.0); Hemoglobin 7.3 g/dL (14.0-18.0); Immature Platelet Fraction Pct 6.3 % (0.9-11.2); Mean Corpuscular HGB Conc 31.5 g/dl (32-36); Mean Corpuscular Hemoglobin 28.4 pg (26-34); Mean Corpuscular Volume 90.3 fl (80-100); Mean Platelet Volume 12.2 fl (7.4-10.4); Platelet Count Result 78 k/mm3 (150-375); Red Blood Count 2.57 M/mm3 (4.6-6.20); Red Cell Distribution Width 19.6 % (11.5-14.5); White Blood Count 3.8 K/mm3 (4.5-10.0)
[2025-04-29 05:45] LABS: INR 2.8; Prothrombin Time 28.1 Seconds (11.1-14.7)
[2025-04-29 05:46] LABS: Partial Thromboplastin Time 40.7 Seconds (22.3-36.8)
[2025-04-29 05:58] LABS: Alanine Aminotransferase 26 U/L (6-50); Albumin Level 3.1 g/dL (3.5-5.1); Alkaline Phosphatase 127 U/L (38-126); Anion Gap 8 mmol/L (4-12); Aspartate Amino Transferase 60 U/L (17-59); Bilirubin,Total 2.4 mg/dL (0.2-1.3); Blood Urea Nitrogen 9 mg/dL (9-20); Calcium 8.7 mg/dL (8.4-10.2); Carbon Dioxide 25 mmol/L (22-30); Chloride 110 mmol/L (98-107); Estimated CRCL calculation 232 ml/min; Estimated Glomerular Filt Rate > 60; Glucose 87 mg/dL (65-110); Potassium 3.5 mmol/L (3.4-5.0); Sodium 143 mmol/L (137-145); Total Protein 6.5 g/dL (6.3-8.2)
--- NOTE | 2025-04-29 07:09 | WPDGIPROGNO ---
Progress Note: A&P Assessment and Plan (1) Alcoholic liver failure: Code(s): K70.40 - Alcoholic hepatic failure without coma Status: Acute Assessment and Plan: This patient, diagnosed with alcohol-related hepatitis and ascites, is scheduled for a paracentesis today. Albumin replacement will be provided for any ascitic fluid volume extracted greater than 5 liters. He has already been initiated on prednisone (MELD 20) and is currently receiving empiric antibiotic therapy for presumed spontaneous bacterial peritonitis . Consistent with current guidelines, pre-procedural INR correction not necessary for paracentesis. His intravenous diuretics have been transitioned to an oral regimen of spironolactone and furosemide. Should SBP be excluded, discharge planning will include a prednisone taper and baclofen to help mitigate alcohol cravings. (2) Cirrhosis of liver: Code(s): K74.60 - Unspecified cirrhosis of liver Status: Acute (3) Abdominal ascites: Code(s): R18.8 - Other ascites Status: Acute (4) Alcoholic hepatitis: Code(s): K70.10 - Alcoholic hepatitis without ascites Status: Acute Subjective Date/time seen: 04/29/25 07:09 Interval history: Patient completely asymptomatic now. Exam Narrative: Abdomen: Markedly distended, fluid wave sign positive. Rest of the exam unchange Objective Data Vital Signs Vital Signs: Vital Signs - 24 hr 04/28/25 08:00 04/28/25 09:52 04/28/25 12:00 Temperature Pulse Rate 77 75 Respiratory Rate Blood Pressure Pulse Oximetry Oxygen Delivery Room Air 04/28/25 14:00 04/28/25 16:00 04/28/25 20:00 Temperature 97.7 F Pulse Rate 81 86 86 Respiratory Rate 18 Blood Pressure 122/61 Pulse Oximetry 100 Oxygen Delivery 04/28/25 20:00 04/28/25 21:56 04/29/25 00:00 Temperature 97.7 F Pulse Rate 92 92 87 Respiratory Rate 18 18 Blood Pressure 128/53 L Pulse Oximetry 100 100 Oxygen Delivery Room Air 04/29/25 04:00 04/29/25 06:00 Temperature 98.0 F Pulse Rate 73 72 Respiratory Rate 18 Blood Pressure 111/63 Pulse Oximetry 100 Oxygen Delivery Intake/Output Intake/Output: Intake & Output 04/26/25 04/27/25 04/28/25 04/29/25 23:59 23:59 23:59 23:59 Intake Total 1345 1157 802 100 Balance 1345 1157 802 100 Meds/Results Medications: Active Medications Generic Name Dose Route Start Last Admin Trade Name Sallie PRN Reason Stop Dose Admin Hydrocodone Bitart/Acetaminophen 1 tab 04/24/25 11:47 04/26/25 22:03 Hydrocodone/Acetaminophen (*Crx) 5-325 Mg Tablet PO 1 tab Q4H PRN Administration Pain Rated 7-10 Folic Acid 1 mg 04/25/25 09:00 04/28/25 09:52 Folic Acid 1 Mg Tablet PO 1 mg DAILY SAEID Administration Furosemide 40 mg 04/29/25 09:00 Furosemide 40 Mg Tablet PO DAILY SAEID Ceftriaxone Sodium 2 gm in 100 mls @ 200 mls/hr 04/28/25 10:00 04/28/25 09:56 Rocephin 2 Gm/Ns 100 Ml IVPB 200 mls/hr DAILY SAEID Administration Prednisone 40 mg 04/27/25 08:00 04/28/25 09:52 Prednisone 20 Mg Tablet PO 40 mg DAILY@0800 SAEID Administration Spironolactone 150 mg 04/26/25 09:00 04/28/25 09:52 Spironolactone 50 Mg Tablet PO 150 mg QAM SAEID Administration Thiamine HCl 100 mg 04/25/25 09:00 04/28/25 09:52 Thiamine Hcl 100 Mg Tablet PO 100 mg QAM SAEID Administration Radiology Results: ITS Impressions Chest X-Ray 04/22/25 20:19 IMPRESSION: Low lung volumes with bibasilar atelectasis. Abdomen/Pelvis CT 04/22/25 21:10 IMPRESSION: Findings consistent with portal hypertension, as detailed above. Labs Labs: Laboratory Results - last 24 hr 04/29/25 04:41 WBC 3.8 L RBC 2.57 L Hgb 7.3 L Hct 23.2 L MCV 90.3 MCH 28.4 MCHC 31.5 L RDW 19.6 H Plt Count 78 L MPV 12.2 H % Immature Plt Fraction 6.3 PT 28.1 H INR 2.8 APTT 40.7 H Sodium 143 Potassium 3.5 Chloride 110 H Carbon Dioxide 25 Anion Gap 8 BUN 9 Creatinine 0.47 L Estim Creat Clear Calc 232 Estimated GFR > 60 Glucose 87 Calcium 8.7 Total Bilirubin 2.4 H AST 60 H ALT 26 Alkaline Phosphatase 127 H Total Protein 6.5 Albumin 3.1 L
[2025-04-29] MEDS: cefTRIAXone 2 GM/NS 100 ML 2 GM/100 ML BAG IVPB (09:39)
--- NOTE | 2025-04-29 09:43 | PC.NURSE ---
call to radiology dept to find out time for scheduled US paracentesis today, they state that the radiologist does not want to do the procedure today based on current lab values, they say that it is my responsibility to reach out to the ordering physician and tell that MD to reach out to Dr Boswell if they want to speak about the procedure
[2025-04-29] MEDS: SPIRONOLACTONE 50 MG TABLET 150 MG PO (09:45)
[2025-04-29] MEDS: FUROSEMIDE 40 MG TABLET PO (09:46)
--- NOTE | 2025-04-29 09:46 | PC.NURSE ---
pt NPO at this time but diuretics administered as there is not a time for this procedure planned today
--- NOTE | 2025-04-29 14:22 | PM.IMPN ---
Progress Note: A&P Assessment and Plan (1) Alcohol dependence: Code(s): F10.20 - Alcohol dependence, uncomplicated Status: Acute (2) Hematemesis: Code(s): K92.0 - Hematemesis Status: Acute (3) Gastric ulcer: Code(s): K25.9 - Gastric ulcer, unspecified as acute or chronic, without hemorrhage or perforation Status: Acute (4) Alcoholic liver failure: Code(s): K70.40 - Alcoholic hepatic failure without coma Status: Acute (5) Cirrhosis of liver: Code(s): K74.60 - Unspecified cirrhosis of liver Status: Acute (6) Abdominal ascites: Code(s): R18.8 - Other ascites Status: Acute (7) Anemia: Qualifiers: Anemia type: unspecified type Qualified Code(s): D64.9 - Anemia, unspecified Code(s): D64.9 - Anemia, unspecified Status: Acute Plan Ascites Na restriction 2g/day Albumin infusion as needed. Received 3 bags on 0 04/25 Furosemide 40 mg IV q.d. 0 04/25: Patient had albumin infusion x3 with Lasix 20 mg IV x 3 0 04/25: Patient had 1 unit of FFP due to abnormal PT PTT pending paracentesis due to abnormal PT PTT fluid restriction if Na less than 125mmol/l Pending transfer for TIPS do not use non selective beta-aramis if sbp less than 90,Na<130,cr> 1.5 esvin: hold diuretics,plasma volume expansion with albumin 1g/kg for 24-48 hours last resort: terlipressin plus albumin avoid nephrotoxic drugs NSAIDs and iodine contrast Order hepatitis panel 0 04/27: Albumin 3 bags today and will be given Lasix 20 mg IV x 3 each bag of albumin. Maddrey's Discriminant Score greater than 60 and started on prednisone 40 mg p.o. q.d. paracentesis getting delayed due to abnormal PT PTT Started on ceftriaxone 2 gFor presumable SBP Discussed with radiology and discussed risk vs benefit since patient is high risk of bleeding due to low platelet for thoracentesis. Advised to give Vitamin K and FFP tomorrow if needed. Will attempt thoracentesis tomorrow 6 thoracentesis today transfer pending Esophageal varices Protonix 40 mg IV b.i.d. Evidence esophageal varices in CT scan GI following Alcohol withdrawal CIWA score 0 Thiamine and folic acid Last alcohol drink 3 weeks ago Lorazepam 2 mg q.4 hours p.r.n. for seizure Monitor development of withdrawal symptoms Monitor LFTs Abdomen/pelvis CT shows portal hypertension and esophageal versus Consider meloxicam or abdominal pain Hypoglycemic med protocol CBC and CMP including Mag and phos AST ALT Hepatitis panel negative Alcohol level less than 10 DVT prophylaxis SCD ordered due to thrombocytopenia Time Spent With Patient Time with patient: 25 - 35 minutes Subjective Date/time seen: 04/29/25 14:22 Interval history: Patient unable to go paracentesis due to elevated PT PTT. Patient will be given albumin 3 bags today and will be given Lasix 20 mg IV x 3. yesterday at albumin infusion has been stopped due to chest tightness but patient reports that suggest throat irritation so we will continue albumin infusion today. Patient will be started on therapeutic does of ceftriaxone for presumable SBP. Pending transfer. Assuming care. thoracentesis today. GI is following, pt is calm and comfortable. Waiting for transfer. Review of Systems Review of Systems: As reviewed above in HPI All systems reviewed & are unremarkable except as noted in HPI and below Exam Narrative: GENERAL: Unwell appearing, anasarca generalized from the ankles to the scrotum, jaundiced appearance HEAD: Normocephalic, atraumatic. EYES: Pupils equal reactive to light, extraocular movements are intact, bilateral jaundice symmetric ENT: Nares clear, no rhinorrhea or epistaxis. Mucous membranes moist. NECK: Supple. CHEST: Clear to auscultation. No respiratory distress. HEART: Regular rate and rhythm. No murmur heard. Normal peripheral pulses. ABDOMEN: Distended abdomen with abdominal striations, tender to palpation diffusely but no signs of peritonitis, No rigidity or guarding EXTREMITIES: Normal range of motion. 2+ pitting edema and anasarca up to the scrotum SKIN: Warm, dry, no rash. NEURO: No focal deficits. Alert and oriented PSYCH: Normal mood and affect. Const: General: comfortable Objective Data Vital Signs Vital Signs: Vital Signs - 24 hr 04/28/25 16:00 04/28/25 20:00 04/28/25 20:00 Temperature Pulse Rate 86 86 92 Respiratory Rate 18 Blood Pressure Pulse Oximetry 100 Oxygen Delivery Room Air 04/28/25 21:56 04/29/25 00:00 04/29/25 04:00 Temperature 97.7 F Pulse Rate 92 87 73 Respiratory Rate 18 Blood Pressure 128/53 L Pulse Oximetry 100 Oxygen Delivery 04/29/25 06:00 04/29/25 08:00 Temperature 98.0 F Pulse Rate 72 Respiratory Rate 18 Blood Pressure 111/63 Pulse Oximetry 100 Oxygen Delivery Room Air Intake/Output Intake/Output: Intake & Output 04/26/25 04/27/25 04/28/25 04/29/25 23:59 23:59 23:59 23:59 Intake Total 1345 1157 902 100 Balance 1345 1157 902 100 Meds/Results Medications: Active Medications Generic Name Dose Route Start Last Admin Trade Name Freq PRN Reason Stop Dose Admin Hydrocodone Bitart/Acetaminophen 1 tab 04/24/25 11:47 04/26/25 22:03 Hydrocodone/Acetaminophen (*Crx) 5-325 Mg Tablet PO 1 tab Q4H PRN Administration Pain Rated 7-10 Folic Acid 1 mg 04/25/25 09:00 04/28/25 09:52 Folic Acid 1 Mg Tablet PO 1 mg DAILY SAEID Administration Furosemide 40 mg 04/29/25 09:00 04/29/25 09:46 Furosemide 40 Mg Tablet PO 40 mg DAILY SAEID Administration Ceftriaxone Sodium 2 gm in 100 mls @ 200 mls/hr 04/28/25 10:00 04/29/25 09:39 Rocephin 2 Gm/Ns 100 Ml IVPB 200 mls/hr DAILY SAEID Administration Prednisone 40 mg 04/27/25 08:00 04/28/25 09:52 Prednisone 20 Mg Tablet PO 40 mg DAILY@0800 SAEID Administration Spironolactone 150 mg 04/26/25 09:00 04/29/25 09:45 Spironolactone 50 Mg Tablet PO 150 mg QAM SAEID Administration Thiamine HCl 100 mg 04/25/25 09:00 04/28/25 09:52 Thiamine Hcl 100 Mg Tablet PO 100 mg QAM SAEID Administration Radiology Results: ITS Impressions Chest X-Ray 04/22/25 20:19 IMPRESSION: Low lung volumes with bibasilar atelectasis. Abdomen/Pelvis CT 04/22/25 21:10 IMPRESSION: Findings consistent with portal hypertension, as detailed above. Labs Labs: Laboratory Results - last 24 hr 04/29/25 04:41 WBC 3.8 L RBC 2.57 L Hgb 7.3 L Hct 23.2 L MCV 90.3 MCH 28.4 MCHC 31.5 L RDW 19.6 H Plt Count 78 L MPV 12.2 H % Immature Plt Fraction 6.3 PT 28.1 H INR 2.8 APTT 40.7 H Sodium 143 Potassium 3.5 Chloride 110 H Carbon Dioxide 25 Anion Gap 8 BUN 9 Creatinine 0.47 L Estim Creat Clear Calc 232 Estimated GFR > 60 Glucose 87 Calcium 8.7 Total Bilirubin 2.4 H AST 60 H ALT 26 Alkaline Phosphatase 127 H Total Protein 6.5 Albumin 3.1 L
--- NOTE | 2025-04-29 14:24 | PC.NURSE ---
pt to US for scheduled procedure via stretcher
--- NOTE | 2025-04-29 15:04 | PC.NURSE ---
plt returned from US, doing well, resting comfortably
[2025-04-29 15:22] LABS: Color Peritoneal Fluid Yellow (Colorless); Source Peritoneal Fluid Peritoneal Fluid
[2025-04-29 15:30] LABS: Appearance Peritoneal Fluid Cloudy (Clear)
[2025-04-29 15:31] LABS: Nucleated Cells Peritoneal Flu 426 /uL (0-500); RBC Peritoneal Fluid < 2000 /uL (0-10000)
[2025-04-29 15:47] LABS: Eosinophils Peritoneal Fluid 0 %; Lymphocytes Peritoneal Fluid 42 %; Macrophages Peritoneal Fluid 42 %; Mesothelial Cells Peritoneal Fluid 6 %; Monocytes Peritoneal Fluid 9 %; Neutrophils Peritoneal Fluid 1 % (0-25)
[2025-04-29] MEDS: predniSONE 20 MG TABLET 40 MG PO (17:26)
[2025-04-29] MEDS: THIAMINE HCL 100 MG TABLET PO (17:26)
[2025-04-29] MEDS: FOLIC ACID 1 MG TABLET PO (17:26)
[2025-04-30] VITALS (11 sets, daily range): BP systolic 111–124; BP diastolic 50–63; PULSE 66–80; RESP 14–20; TEMP 36.4–36.7; O2SAT 100
[2025-04-30] MEDS: FUROSEMIDE INJ 40 MG/4 ML VIAL 20 MG IV PUSH (01:52)
[2025-04-30 05:22] LABS: Hemoglobin 7.7 g/dL (14.0-18.0); Immature Platelet Fraction Pct 7.4 % (0.9-11.2); Mean Corpuscular HGB Conc 32.1 g/dl (32-36); Mean Corpuscular Hemoglobin 28.7 pg (26-34); Mean Corpuscular Volume 89.6 fl (80-100); Mean Platelet Volume 11.9 fl (7.4-10.4); Platelet Count Result 83 k/mm3 (150-375); Red Blood Count 2.68 M/mm3 (4.6-6.20); Red Cell Distribution Width 18.9 % (11.5-14.5); White Blood Count 3.3 K/mm3 (4.5-10.0)
[2025-04-30 05:30] LABS: Alanine Aminotransferase 30 U/L (6-50); Albumin Level 3.2 g/dL (3.5-5.1); Alkaline Phosphatase 121 U/L (38-126); Anion Gap 8 mmol/L (4-12); Aspartate Amino Transferase 61 U/L (17-59); Bilirubin,Total 2.8 mg/dL (0.2-1.3); Blood Urea Nitrogen 9 mg/dL (9-20); Calcium 8.7 mg/dL (8.4-10.2); Carbon Dioxide 25 mmol/L (22-30); Chloride 108 mmol/L (98-107); Estimated CRCL calculation 237 ml/min; Estimated Glomerular Filt Rate > 60; Glucose 149 mg/dL (65-110); Potassium 3.9 mmol/L (3.4-5.0); Sodium 141 mmol/L (137-145); Total Protein 6.5 g/dL (6.3-8.2)
--- NOTE | 2025-04-30 06:57 | WPDGIPROGNO ---
Progress Note: A&P Assessment and Plan (1) Cirrhosis, alcoholic: Code(s): K70.30 - Alcoholic cirrhosis of liver without ascites Status: Acute (2) Alcoholic hepatitis: Code(s): K70.10 - Alcoholic hepatitis without ascites Status: Acute Assessment and Plan: The patient is clinically stable. Today michel day 3 of prednisone therapy for alcoholic hepatitis. Tomorrow, we will draw labs to calculate the Lille score and assess the utility of continuing prednisone for a full month. The patient has been informed and is deemed a candidate for liver transplant evaluation and alcohol rehabilitation, with arrangements to be made once he is ready for discharge. We will continue oral spironolactone and furosemide as prescribed. Subjective Date/time seen: 04/30/25 06:57 Objective Data Vital Signs Vital Signs: Vital Signs - 24 hr 04/29/25 08:00 04/29/25 08:00 04/29/25 12:00 Temperature Pulse Rate 83 84 Respiratory Rate Blood Pressure Pulse Oximetry Oxygen Delivery Room Air 04/29/25 14:00 04/29/25 16:00 04/29/25 20:00 Temperature 98.1 F Pulse Rate 74 82 84 Respiratory Rate 18 Blood Pressure 118/62 Pulse Oximetry 100 Oxygen Delivery 04/29/25 20:00 04/29/25 20:13 04/30/25 00:00 Temperature 97.8 F Pulse Rate 88 88 66 Respiratory Rate 16 16 Blood Pressure 115/55 L Pulse Oximetry 99 99 Oxygen Delivery Room Air 04/30/25 01:48 04/30/25 04:00 04/30/25 05:41 Temperature 97.9 F Pulse Rate 77 79 76 Respiratory Rate 14 Blood Pressure 124/63 111/50 L Pulse Oximetry 100 100 Oxygen Delivery 04/30/25 06:09 Temperature Pulse Rate Respiratory Rate Blood Pressure 114/59 L Pulse Oximetry Oxygen Delivery Intake/Output Intake/Output: Intake & Output 04/27/25 04/28/25 04/29/25 04/30/25 23:59 23:59 23:59 23:59 Intake Total 9827 902 427 585 Output Total 2100 Balance 2679 902 -6894 422 Meds/Results Medications: Active Medications Generic Name Dose Route Start Last Admin Trade Name Freq PRN Reason Stop Dose Admin Hydrocodone Bitart/Acetaminophen 1 tab 04/24/25 11:47 04/26/25 22:03 Hydrocodone/Acetaminophen (*Crx) 5-325 Mg Tablet PO 1 tab Q4H PRN Administration Pain Rated 7-10 Folic Acid 1 mg 04/25/25 09:00 04/29/25 17:26 Folic Acid 1 Mg Tablet PO 1 mg DAILY SAEID Administration Furosemide 40 mg 04/29/25 09:00 04/29/25 09:46 Furosemide 40 Mg Tablet PO 40 mg DAILY SAEID Administration Prednisone 40 mg 04/27/25 08:00 04/29/25 17:26 Prednisone 20 Mg Tablet PO 40 mg DAILY@0800 SAEID Administration Spironolactone 150 mg 04/26/25 09:00 04/29/25 09:45 Spironolactone 50 Mg Tablet PO 150 mg QAM SAEID Administration Thiamine HCl 100 mg 04/25/25 09:00 04/29/25 17:26 Thiamine Hcl 100 Mg Tablet PO 100 mg QAM SAEID Administration Radiology Results: ITS Impressions Chest X-Ray 04/22/25 20:19 IMPRESSION: Low lung volumes with bibasilar atelectasis. Abdomen/Pelvis CT 04/22/25 21:10 IMPRESSION: Findings consistent with portal hypertension, as detailed above. Paracentesis Ultrasound 04/29/25 15:35 IMPRESSION: 1. Successful ultrasound-guided paracentesis yielding 2100 mL of clear yellow fluid. Labs Labs: Laboratory Results - last 24 hr 04/29/25 04/30/25 14:45 05:02 WBC 3.3 L RBC 2.68 L Hgb 7.7 L Hct 24.0 L MCV 89.6 MCH 28.7 MCHC 32.1 RDW 18.9 H Plt Count 83 L MPV 11.9 H % Immature Plt Fraction 7.4 Sodium 141 Potassium 3.9 Chloride 108 H Carbon Dioxide 25 Anion Gap 8 BUN 9 Creatinine 0.46 L Estim Creat Clear Calc 237 Estimated GFR > 60 Glucose 149 H Calcium 8.7 Total Bilirubin 2.8 H AST 61 H ALT 30 Alkaline Phosphatase 121 Total Protein 6.5 Albumin 3.2 L Peritoneal Source Peritoneal fluid Peritoneal Color Yellow Peritoneal Appearance Cloudy A Peritoneal RBC < 2000 Periton Nuc Cells 426 Periton Neutrophils 1 Periton Lymphocytes 42 Peritoneal Monocytes 9 Peritoneal Eosinophils 0 Periton Mesothelial 6 Periton Macrophages 42
--- NOTE | 2025-04-30 07:53 | PM.IMPN ---
Progress Note: A&P Assessment and Plan (1) Alcoholic liver failure: Code(s): K70.40 - Alcoholic hepatic failure without coma Status: Acute Assessment and Plan: Na restriction 2g/day Albumin infusion as needed. Furosemide 40 mg PO q.d. and spironolactone 150 mg PO qd Fluid restriction if Na less than 125mmol/l S/p paracentesis on 04/29 yeilding 2100 ml. Fluid culture pending. Started on ceftriaxone on 04/28 at 2 g for presumable SBP Hepatitis panel negative Elevated hepatitis discriminant function 60, no obvious contraindication for steroids- started prednisone given severity of alcoholic hepatitis by GI on 04/27 do not use non selective beta-aramis if sbp less than 90,Na<130,cr> 1.5 esvin: hold diuretics,plasma volume expansion with albumin 1g/kg for 24-48 hours last resort: terlipressin plus albumin avoid nephrotoxic drugs NSAIDs and iodine contrast Monitor vital signs, I&Os, track stool output, watch for bloody stools, neuro status and patient is a fall risk Monitor serum electrolytes and CBC Pending transfer for TIPS GI consulted Tomorrow, we will draw labs to calculate the Lille score and assess the utility of continuing prednisone for a full month. The patient has been informed and is deemed a candidate for liver transplant evaluation and alcohol rehabilitation, with arrangements to be made once he is ready for discharge. We will continue oral spironolactone and furosemide as prescribed. (2) Cirrhosis of liver: Code(s): K74.60 - Unspecified cirrhosis of liver Status: Acute Assessment and Plan: also anasarca will give diuretics and monitor lytes/renal function meld score 17 See plan above #1 alcoholic liver failure (3) Abdominal ascites: Code(s): R18.8 - Other ascites Status: Acute Assessment and Plan: S/p paracentesis on 04/29 yeilding 2100 ml. Fluid culture pending. Started on ceftriaxone on 04/28 at 2 g for presumable SBP See plan above #1 alcoholic liver failure (4) Anemia: Qualifiers: Anemia type: unspecified type Qualified Code(s): D64.9 - Anemia, unspecified Code(s): D64.9 - Anemia, unspecified Status: Acute Assessment and Plan: Anemia secondary to cirrhosis Remains stable No signs of active bleeding Monitor (5) Alcohol dependence: Code(s): F10.20 - Alcohol dependence, uncomplicated Status: Acute Assessment and Plan: He has not been drinking for over 2 weeks mostly because he noted edema and abdominal discomfort Thiamine and folic acid Ciwa protocol Time Spent With Patient Time with patient: 25 - 35 minutes Subjective Date/time seen: 04/30/25 07:53 Interval history: 39-year-old male with a past medical history of alcohol use disorder and bleeding gastric ulcers requiring endoscopy presented to the hospital for abdominal pain, generalized swelling and anasarca as well as jaundiced eyes and skin. Patient is pleasant sitting up comfortably in his chair. He has no complaints this time denying any nausea/vomiting or abdominal pain. He states that the bloating has improved since the paracentesis. Continue to wait for transfer. Patient has no other complaints denying chest pain, palpitations, and shortness of breath. Review of Systems Review of Systems: All systems reviewed & are unremarkable except as noted in HPI and below Exam Narrative: AF HR 76 RR 14 SpO2 100 BP 111/50 General: male in no acute respiratory distress who is nontoxic appearing, sitting up in chair HEENT: Normocephalic. Atraumatic. Extraocular movement intact. Sclera jaundiced. No facial asymmetry. Chest: Lungs are clear to auscultation bilaterally. No wheezes or crackles. CV: Heart was regular rate and rhythm. S1/S2. No murmurs, gallops, or rubs. Abd: Abdomen was soft. Nontender. Nondistended. Positive bowel sounds. Ext: No clubbing, cyanosis, or edema. DP pulses bilaterally. 2+ pitting edema. Neuro: Patient is alert and oriented x4. Speech is clear. Objective Data Vital Signs Vital Signs: Vital Signs - 24 hr 04/29/25 08:00 04/29/25 08:00 04/29/25 12:00 Temperature Pulse Rate 83 84 Respiratory Rate Blood Pressure Pulse Oximetry Oxygen Delivery Room Air 04/29/25 14:00 04/29/25 16:00 04/29/25 20:00 Temperature 98.1 F Pulse Rate 74 82 84 Respiratory Rate 18 Blood Pressure 118/62 Pulse Oximetry 100 Oxygen Delivery 04/29/25 20:00 04/29/25 20:13 04/30/25 00:00 Temperature 97.8 F Pulse Rate 88 88 66 Respiratory Rate 16 16 Blood Pressure 115/55 L Pulse Oximetry 99 99 Oxygen Delivery Room Air 04/30/25 01:48 04/30/25 04:00 04/30/25 05:41 Temperature 97.9 F Pulse Rate 77 79 76 Respiratory Rate 14 Blood Pressure 124/63 111/50 L Pulse Oximetry 100 100 Oxygen Delivery 04/30/25 06:09 Temperature Pulse Rate Respiratory Rate Blood Pressure 114/59 L Pulse Oximetry Oxygen Delivery Intake/Output Intake/Output: Intake & Output 04/27/25 04/28/25 04/29/25 04/30/25 23:59 23:59 23:59 23:59 Intake Total 1157 902 427 585 Output Total 2100 Balance 1157 902 -6272 585 Meds/Results Medications: Active Medications Generic Name Dose Route Start Last Admin Trade Name Freq PRN Reason Stop Dose Admin Hydrocodone Bitart/Acetaminophen 1 tab 04/24/25 11:47 04/26/25 22:03 Hydrocodone/Acetaminophen (*Crx) 5-325 Mg Tablet PO 1 tab Q4H PRN Administration Pain Rated 7-10 Folic Acid 1 mg 04/25/25 09:00 04/29/25 17:26 Folic Acid 1 Mg Tablet PO 1 mg DAILY SAEID Administration Furosemide 40 mg 04/29/25 09:00 04/29/25 09:46 Furosemide 40 Mg Tablet PO 40 mg DAILY SAEID Administration Prednisone 40 mg 04/27/25 08:00 04/29/25 17:26 Prednisone 20 Mg Tablet PO 40 mg DAILY@0800 SAEID Administration Spironolactone 150 mg 04/26/25 09:00 04/29/25 09:45 Spironolactone 50 Mg Tablet PO 150 mg QAM SAEID Administration Thiamine HCl 100 mg 04/25/25 09:00 04/29/25 17:26 Thiamine Hcl 100 Mg Tablet PO 100 mg QAM SAEID Administration Radiology Results: ITS Impressions Chest X-Ray 04/22/25 20:19 IMPRESSION: Low lung volumes with bibasilar atelectasis. Abdomen/Pelvis CT 04/22/25 21:10 IMPRESSION: Findings consistent with portal hypertension, as detailed above. Paracentesis Ultrasound 04/29/25 15:35 IMPRESSION: 1. Successful ultrasound-guided paracentesis yielding 2100 mL of clear yellow fluid. Labs Labs: Laboratory Results - last 24 hr 06/24/25 06/25/25 14:45 05:02 WBC 3.3 L RBC 2.68 L Hgb 7.7 L Hct 24.0 L MCV 89.6 MCH 28.7 MCHC 32.1 RDW 18.9 H Plt Count 83 L MPV 11.9 H % Immature Plt Fraction 7.4 Sodium 141 Potassium 3.9 Chloride 108 H Carbon Dioxide 25 Anion Gap 8 BUN 9 Creatinine 0.46 L Estim Creat Clear Calc 237 Estimated GFR > 60 Glucose 149 H Calcium 8.7 Total Bilirubin 2.8 H AST 61 H ALT 30 Alkaline Phosphatase 121 Total Protein 6.5 Albumin 3.2 L Peritoneal Source Peritoneal fluid Peritoneal Color Yellow Peritoneal Appearance Cloudy A Peritoneal RBC < 2000 Periton Nuc Cells 426 Periton Neutrophils 1 Periton Lymphocytes 42 Peritoneal Monocytes 9 Peritoneal Eosinophils 0 Periton Mesothelial 6 Periton Macrophages 42 Quality VTE Prophylaxis VTE prophylaxis: mechanical ordered
[2025-04-30] MEDS: SPIRONOLACTONE 50 MG TABLET 150 MG PO (08:19)
[2025-04-30] MEDS: THIAMINE HCL 100 MG TABLET PO (08:19)
[2025-04-30] MEDS: FOLIC ACID 1 MG TABLET PO (08:19)
[2025-04-30] MEDS: FUROSEMIDE 40 MG TABLET PO (08:19)
[2025-04-30] MEDS: predniSONE 20 MG TABLET 40 MG PO (08:19)
[2025-04-30 09:02] LABS: INR 2.5; Prothrombin Time 26.3 Seconds (11.1-14.7)
[2025-04-30 15:05] LABS: INR 2.5; Prothrombin Time 26.4 Seconds (11.1-14.7)
[2025-04-30] MEDS: HYDROcodone/acetaminophen (*CRX) 5-325 MG TABLET 1 TAB PO (20:13)
[2025-05-01 00:04] VITALS: PULSE 72
[2025-05-01 04:00] VITALS: PULSE 79
[2025-05-01 05:46] LABS: Hematocrit 25.2 % (42.0-52.0); Hemoglobin 8.1 g/dL (14.0-18.0); Immature Platelet Fraction Pct 7.3 % (0.9-11.2); Mean Corpuscular HGB Conc 32.1 g/dl (32-36); Mean Corpuscular Hemoglobin 27.8 pg (26-34); Mean Corpuscular Volume 86.6 fl (80-100); Mean Platelet Volume 12.1 fl (7.4-10.4); Platelet Count Result 87 k/mm3 (150-375); Red Blood Count 2.91 M/mm3 (4.6-6.20); Red Cell Distribution Width 19.2 % (11.5-14.5); White Blood Count 4.8 K/mm3 (4.5-10.0)
[2025-05-01 05:59] LABS: Alanine Aminotransferase 29 U/L (6-50); Alkaline Phosphatase 141 U/L (38-126); Anion Gap 7 mmol/L (4-12); Aspartate Amino Transferase 57 U/L (17-59); Bilirubin,Total 2.6 mg/dL (0.2-1.3); Blood Urea Nitrogen 9 mg/dL (9-20); Calcium 8.8 mg/dL (8.4-10.2); Carbon Dioxide 23 mmol/L (22-30); Chloride 111 mmol/L (98-107); Estimated CRCL calculation 253 ml/min; Estimated Glomerular Filt Rate > 60; Glucose 94 mg/dL (65-110); Potassium 3.7 mmol/L (3.4-5.0); Sodium 141 mmol/L (137-145); Total Protein 6.6 g/dL (6.3-8.2)
[2025-05-01 06:00] VITALS: BP 108/56; PULSE 67; RESP 20; TEMP 36.3; O2SAT 99
--- NOTE | 2025-05-01 07:06 | WPDGIPROGNO ---
Progress Note: A&P Assessment and Plan (1) Alcoholic hepatitis: Code(s): K70.10 - Alcoholic hepatitis without ascites Status: Acute Assessment and Plan: Patient with cirrhosis, ascites and superimposed alcoholic hepatitis, withdrawal symptoms resolved. The patient showed a good response to corticosteroids, with a decrease in his little score. Therefore, he should continue corticosteroids for 30 days followed by a taper. In addition he should continue same diuretic regimes, i.e., spironolactone and furosemide. In addition, baclofen will be prescribed to reduce the chances of alcohol cravings. He should follow with me in clinic as an outpatient within 4-6 weeks. Plan - Prednisone 40 mg qD, 30 days. After that, decrease 5 mg each week until discontinuation - Lasix 40 mg + Spironolactone 150 mg once a day, to be given every morning with breakfast - Baclofen 10 mg every 8 hours (with each meal) - Before discharge, consult nutrition Service to provide pt with a low sodium (2 grams daily) Subjective Date/time seen: 05/01/25 07:06 Interval history: Patient feels well, no signs of withdrawal. Laboratory data today: Prothrombin times 26.4 seconds, INR 2.5, creatinine 0.42, bilirubin 2.6, albumin 3.0. Lille score 0.041 Exam Narrative: unchanged from baseline. Objective Data Vital Signs Vital Signs: Vital Signs - 24 hr 04/30/25 08:00 04/30/25 08:15 04/30/25 12:00 Temperature Pulse Rate 80 70 Respiratory Rate Blood Pressure Pulse Oximetry Oxygen Delivery Room Air 04/30/25 14:12 04/30/25 16:00 04/30/25 20:00 Temperature 98.1 F Pulse Rate 76 73 75 Respiratory Rate 18 Blood Pressure 113/57 L Pulse Oximetry 100 Oxygen Delivery 04/30/25 20:10 04/30/25 21:48 05/01/25 00:04 Temperature 97.6 F Pulse Rate 78 72 Respiratory Rate 20 Blood Pressure 117/55 L Pulse Oximetry 100 Oxygen Delivery Room Air 05/01/25 04:00 Temperature Pulse Rate 79 Respiratory Rate Blood Pressure Pulse Oximetry Oxygen Delivery Intake/Output Intake/Output: Intake & Output 04/28/25 04/29/25 04/30/25 05/01/25 23:59 23:59 23:59 23:59 Intake Total 505 201 8786 Output Total 2100 Balance 902 -1673 1895 Meds/Results Medications: Active Medications Generic Name Dose Route Start Last Admin Trade Name Sallie PRN Reason Stop Dose Admin Hydrocodone Bitart/Acetaminophen 1 tab 04/24/25 11:47 04/30/25 20:13 Hydrocodone/Acetaminophen (*Crx) 5-325 Mg Tablet PO 1 tab Q4H PRN Administration Pain Rated 7-10 Folic Acid 1 mg 04/25/25 09:00 04/30/25 08:19 Folic Acid 1 Mg Tablet PO 1 mg DAILY SAEID Administration Furosemide 40 mg 04/29/25 09:00 04/30/25 08:19 Furosemide 40 Mg Tablet PO 40 mg DAILY SAEID Administration Prednisone 40 mg 04/27/25 08:00 04/30/25 08:19 Prednisone 20 Mg Tablet PO 40 mg DAILY@0800 SAEID Administration Spironolactone 150 mg 04/26/25 09:00 04/30/25 08:19 Spironolactone 50 Mg Tablet PO 150 mg QAM SAEID Administration Thiamine HCl 100 mg 04/25/25 09:00 04/30/25 08:19 Thiamine Hcl 100 Mg Tablet PO 100 mg QAM SAEID Administration Radiology Results: ITS Impressions Chest X-Ray 04/22/25 20:19 IMPRESSION: Low lung volumes with bibasilar atelectasis. Abdomen/Pelvis CT 04/22/25 21:10 IMPRESSION: Findings consistent with portal hypertension, as detailed above. Paracentesis Ultrasound 04/29/25 15:35 IMPRESSION: 1. Successful ultrasound-guided paracentesis yielding 2100 mL of clear yellow fluid. Labs Labs: Laboratory Results - last 24 hr 04/30/25 04/30/25 05/01/25 08:38 14:44 05:22 WBC 4.8 RBC 2.91 L Hgb 8.1 L Hct 25.2 L MCV 86.6 MCH 27.8 MCHC 32.1 RDW 19.2 H Plt Count 87 L MPV 12.1 H % Immature Plt Fraction 7.3 PT 26.3 H 26.4 H INR 2.5 2.5 Sodium 141 Potassium 3.7 Chloride 111 H Carbon Dioxide 23 Anion Gap 7 BUN 9 Creatinine 0.42 L Estim Creat Clear Calc 253 Estimated GFR > 60 Glucose 94 Calcium 8.8 Total Bilirubin 2.6 H AST 57 ALT 29 Alkaline Phosphatase 141 H Total Protein 6.6 Albumin 3.0 L
[2025-05-01 08:00] VITALS: PULSE 74
[2025-05-01] MEDS: SPIRONOLACTONE 50 MG TABLET 150 MG PO (08:16)
[2025-05-01] MEDS: THIAMINE HCL 100 MG TABLET PO (08:17)
[2025-05-01] MEDS: FUROSEMIDE 40 MG TABLET PO (08:17)
[2025-05-01] MEDS: predniSONE 20 MG TABLET 40 MG PO (08:17)
[2025-05-01] MEDS: FOLIC ACID 1 MG TABLET PO (08:17)
--- NOTE | 2025-05-01 11:45 | PCNWS ---
Weekly nutritional screen. Patient is tolerating current 2 G Na diet with adequate intake. No weight loss reported. No nutritional needs at this time.
[2025-05-01 12:00] VITALS: PULSE 76
[2025-05-01 14:00] VITALS: BP 133/60; PULSE 77; RESP 18; O2SAT 100
--- NOTE | 2025-05-01 14:42 | P.DS_ITS ---
DS: Admitting Diagnosis Discharge Date 05/01/2025 Admitting Diagnosis alcoholic liver failure cirrhosis of liver abdominal ascites anemia alcohol dependence DS: Discharge Diagnosis Discharge Diagnosis (1) Alcoholic liver failure: Code(s): K70.40 - Alcoholic hepatic failure without coma Status: Acute (2) Cirrhosis of liver: Code(s): K74.60 - Unspecified cirrhosis of liver Status: Acute (3) Abdominal ascites: Code(s): R18.8 - Other ascites Status: Acute (4) Anemia: Qualifiers: Anemia type: unspecified type Qualified Code(s): D64.9 - Anemia, unspecified Code(s): D64.9 - Anemia, unspecified Status: Acute (5) Alcohol dependence: Code(s): F10.20 - Alcohol dependence, uncomplicated Status: Acute DS: Summary Hospital Course Reason for hospitalization: alcoholic liver failure cirrhosis of liver abdominal ascites anemia alcohol dependence Hospital Course: 40-year-old male with a past medical history of alcohol use disorder and bleeding gastric ulcers requiring endoscopy presented to the hospital for abdominal pain, generalized swelling and anasarca as well as jaundiced eyes and skin. Elevated liver enzymes on admission. Hepatitis panel negative. Chest XR showed low lung volumes with bibasilar atelectasis. Abdomen/pelvis CT showed portal vein hypertension. GI consulted. Patient was placed on a low sodium diet and fluid restriction. Patient started on lasix and spironolactone. On 04/25 he required several rounds of albumin and FFP x1. He underwent a paracentesis on 04/29 yielding 2100 ml. Gram stain unremarkable. Patient received one dose of antibiotics for possible SBP however his WBC was WNL, he was afebrile and had no abdominal pain so the antibiotic was discontinued. Patient then had an elevated hepatitis discriminant function 60 with no obvious contraindication for steroids per GI and was started on prednisone. Patients Lille score was assessed by GI and he is to remain on a assisted taper of prednisone upon discharge. Patient discharged from GI perspective on the diuretics, steroid and was started on baclofen. Prior to discharge patient was seen by nutrition to discuss low sodium diet. Patient is to follow up with GI in the outpatient setting and will likely need TIPS procedure. Patient had no complaints at time of discharge denying chest pain, shortness a breath, palpitations, nausea/vomiting, abdominal pain, and weakness/dizziness/lightheadedness. Patient discharged home with family in a stable condition. He is to follow up his primary care provider in 1 week and GI as scheduled. Status at Discharge Functional status at discharge: independent ambulation Time Spent with Patient Time attestation: Total time spent providing and/or coordinating discharge services: Time spent: Greater than 30 minutes Exam Narrative: AF HR 77 RR 18 SpO2 100 BP 133/60 General: male in no acute respiratory distress who is nontoxic appearing, sitting up in chair HEENT: Normocephalic. Atraumatic. Extraocular movement intact. Sclera jaundiced. No facial asymmetry. Chest: Lungs are clear to auscultation bilaterally. No wheezes or crackles. CV: Heart was regular rate and rhythm. S1/S2. No murmurs, gallops, or rubs. Abd: Abdomen was soft. Nontender. Nondistended. Positive bowel sounds. Ext: No clubbing, cyanosis, or edema. DP pulses bilaterally. 2+ pitting edema. Neuro: Patient is alert and oriented x4. Speech is clear. DS: Data Data Completed and Pending Completed studies during hospitalization: paracentesis US abdomen/pelvis CT Chest XR Pending studies at discharge: Pending at discharge 04/24/25 12:28 Cytology [PTH] Routine Labs on day of discharge: Labs from last 24 hours 05/01/25 04/30/25 05:22 14:44 WBC 4.8 RBC 2.91 L Hgb 8.1 L Hct 25.2 L MCV 86.6 MCH 27.8 MCHC 32.1 RDW 19.2 H Plt Count 87 L MPV 12.1 H % Immature Plt Fraction 7.3 PT 26.4 H INR 2.5 Sodium 141 Potassium 3.7 Chloride 111 H Carbon Dioxide 23 Anion Gap 7 BUN 9 Creatinine 0.42 L Estim Creat Clear Calc 253 Estimated GFR > 60 Glucose 94 Calcium 8.8 Total Bilirubin 2.6 H AST 57 ALT 29 Alkaline Phosphatase 141 H Total Protein 6.6 Albumin 3.0 L Discharge Plan Discharge Attending physician on discharge: Neisha Roberts Consulting providers: Evon Remy Discharging Clinician: Evon Remy Anticipated Discharge Date/Time: 05/01/25 14:26 Patient Disposition: Home Activity: as tolerated Diet: as tolerated and low sodium Discharge Instructions: Discharge disposition: Patient admitted to the hospital for alcoholic hepatitis Evaluated by GI Underwent a paracentesis for ascites Take medications as prescribed Start prednisone 40 mg daily for 30 days then continue the prednisone taper as prescribed Started on lasix, spironolactone and baclfen Attached is information on these medications Maintain a low sodium diet, 2 g sodium Remain active Monitor urine output Daily weights, if you gain more than 3 lb within 1 day or 5 lb in 1 week notify your primary care provider Follow up in the GI office in 4 weeks Strongly encourage alcohol cessation Follow with AA as planned Monitor blood pressures Take caution while standing, rising, or moving Change positions slowly taking a break between each position change If you standing feel dizzy sit back down and take a break Encouraged to continue with yearly vaccinations Return to the emergency department if he developed sudden shortness of breath, chest pain, nausea, vomiting, upset stomach or intractable diarrhea Return to the emergency department if you develop fever greater than 101.5 Follow-up with the primary care physician within 1-2 weeks Thank you for [facility] for your healthcare needs Patient Instructions: Antibiotic Form, Cirrhosis of the Liver (DC), Acute Liver Failure (DC), Ascites (DC), Low-Sodium Diet (DC), Alcoholic Hepatitis (DC) Patient Language: Cameroonian Stand Alone Forms: General Discharge Information, Work/School Release IP Follow-up/Referrals: Han Lipscomb MD [Physician] - 1 Week Vivek Tomlinson MD [Physician] - 4 Weeks Discharge Medications: New furosemide 40 mg Tablet 40 mg PO DAILY Qty: 30 0RF prednisone 20 mg Tablet 40 mg PO DAILY@0800 Qty: 30 0RF thiamine HCl (vitamin B1) [Vitamin B-1] 100 mg Tablet 100 mg PO QAM Qty: 30 0RF folic acid 1 mg Tablet 1 mg PO DAILY Qty: 30 0RF spironolactone [Aldactone] 50 mg Tablet 150 mg PO QAM Qty: 30 0RF prednisone 10 mg Tablet 10 mg PO DIRECTED Qty: 98 0RF Rx Instructions: Start May 30, 2025, after the 40 mg prednisone course is completed. Prednisone taper: 35 mg (3.5 tabs) x 7 days, then 30 mg (3 tabs) x 7 days, then 25 mg (2.5 tabs) x 7 days, then 20 mg (2 tabs) x 7 days, then 15mg (1.5 tabs) x7 days, then 10 mg (1 tab) x 7 days, then 5 mg (0.5 tabs) x7 days then stop. Date of admission: 04/23/25 21:53 Primary Care Provider: PHYSICIAN,COMMUNITY WORKER Admitting Provider: Mohini Daniel Attending physician on admission: Mohini Daniel Condition: Stable Hospitalist MIPS Heart Failure (Exclusion) Patient has history of Heart Transplant or Left Ventricular Assistive Device?: No IF YES, STOP HERE Heart Failure (Qualifier) Patient has current or prior documentation of LVEF less than or equal to 40%, or mod/servere depressed LVSF?: No IF NO, STOP HERE
[2025-05-02 21:28] LABS: LDH Peritoneal Fluid. 164 U/L (<63)
[2025-05-03 19:49] LABS: Albumin Peritoneal Fluid. 1.3 g/dL; Total Protein Peritoneal Fluid <3.0 g/dL
== END 2025-05-01 14:58 | disposition home or self-care (01) | DRG 280 ==
LOC: ANHED 04-23 00:58 → ANH3MEDSUR 04-23 22:57 → ANH2MED 04-23 23:01
PROVIDERS: General Practice; Internal Medicine Gastroenterology; Nurse Practitioner; Admitting Provider Internal Medicine; Emergency Provider Student in an Organized Health Care Education/Training Program; Visit Provider Student in an Organized Health Care Education/Training Program
DX: K70.40 Alcoholic hepatic failure without coma (principal); K70.31 Alcoholic cirrhosis of liver with ascites; K70.11 Alcoholic hepatitis with ascites; F10.20 Alcohol dependence, uncomplicated; D63.8 Anemia in other chronic diseases classified elsewhere; E87.6 Hypokalemia; K92.0 Hematemesis; K76.6 Portal hypertension; K25.9 Gastric ulcer, unspecified as acute or chronic, without hemorrhage or perforation; I85.00 Esophageal varices without bleeding; D69.59 Other secondary thrombocytopenia; F17.210 Nicotine dependence, cigarettes, uncomplicated
CPT/HCPCS: 36415; 36430; 49083; 71045; 74177; 80053; 80074; 81003; 82042; 82150; 82248; 82945; 83605; 83615; 83690; 84157; 85025; 85027; 85055; 85610; 85730; 86900; 86901; 87205; 88108; 88305; 89051; 93005; 93306; 96374; 96375; 99285; A9270; J0696; J1938; J2003; J2004; J2270; J2470; J3430; J3480; J7050; J7512; P9017; P9047; Q9967